=== PATIENT | male | born 1955 | race Caucasian/White ===

== ENCOUNTER 2016-08-28 07:30 | Inpatient (IN) | payer BC ==
--- NOTE | 2016-08-13 14:45 | NUR ---
PMH, allergies, meds reviewed and documented. Preop and DOS instructions reviewed and questions answered. Encouraged to call if he has any further questions.
--- NOTE | 2016-08-19 14:00 | NUR ---
JOINT REPLACEMENT PREOP CLASS PATIENT ATTENDED JOINT REPLACEMENT PREOP CLASS. CASE MANAGEMENT CONTACT INFORMATION PROVIDED. EDUCATION WAS PROVIDED REGARDING WHAT TO EXPECT BEFORE, DURING AND AFTER SURGERY. INCLUDING: OVERVIEW OF ANATOMY AND PHYSIOLOGY HOSPITAL TREATMENT SCHEDULE THERAPY DEMONSTRATION CASE MANAGEMENT RESPONSIBILITIES DISCHARGE PLANNING EQUIPMENT NEEDS JOINT REPLACEMENT WORKBOOK ANTI-COAGULATION SURGERY STRONG NUTRITIONAL PROTOCOL DIS[place]GE IN[place] [facility] [place], WITH INSTRUCTIONS [facility] AND PREOP SURVERY PREOP BATHING- CHG GIVEN ALL PATIENT'S QUESTIONS ANSWERED TO THEIR SATISFACTION. PATIENTS AND COACHES ENCOURAGED TO CALL WITH ANY ADDITIONAL QUESTIONS OR CONCERNS. CM FOLLOWING FOR TRANSITIONAL CARE PLANNING NEEDS DURING HOSPITALIZATION.
[~2016-08-28] VITALS: Ht 185.4 cm; Wt 93.5 kg
[~2016-08-28 07:30] MED LIST: AMLO2.5T PO; CHOL100092 PO; CLOP75TA33 PO; FLUT9.9S EA NOSTRIL; GABA-338 PO; GLUC-210 PO; LOSA50TA52 PO; MULT-1175 PO; NITR0.4T SL; PANT40TA27 PO; PITA4TAB PO; SAW450CA4 PO; UBID200C15 PO; VITA1CAP PO
[2016-09-23] VITALS (24 sets, daily range): BP systolic 101–154; BP diastolic 5–86; PULSE 55–74; RESP 14–18; TEMP 97.2–97.8; O2SAT 91–100; Ht 185.4 cm; Wt 93.5 kg
[2016-09-23] MEDS ORDERED: METOCLOPRAMIDE 10mg/2ml INJECTION IV ONE (06:00)
[2016-09-23] MEDS ORDERED: FAMOTIDINE 20mg IVPB 50 ML IV ONE (06:00)
[2016-09-23] MEDS ORDERED: LIDOCAINE 1% (10mg/ml) 2ml SDV SQ ONE (06:00)
[2016-09-23] MEDS ORDERED: MELOXICAM 15 MG TABLET PO ONE (06:00)
[2016-09-23] MEDS ORDERED: ACETAMINOPHEN 500 MG TABLET PO ONE (07:00)
[2016-09-23] MEDS ORDERED: ONDANSETRON 4mg/2ml INJECTION IV ONE (07:00)
[2016-09-23] MEDS ORDERED: DEXAMETHASONE 4mg/ml - 1ml INJECTION IV ONE (07:00)
[2016-09-23] MEDS ORDERED: LR 1,000 ML IV SCH (07:00)
--- OUTSIDE RECORDS SUMMARY | 2016-09-23 09:25 | XMS REPORT | Continuity of Care Document ---
Author Author [facility] Ambulatory Address Unknown Phone Unavailable Care Team Providers Care Bead Builder Name Role Phone Leobardo Gallegos PP Unavailable Payers Payer name Insurance type Covered green party ID Authorization(s) Unknown Problems Condition Effective Dates (start - stop) Clinical Status Chest pain, unspecified - Intermittent RUQ abdominal pain - Intermittent CAD (coronary artery disease) - *Chronic Hypertension - *Chronic GERD (gastroesophageal reflux disease) - *Chronic Hypercholesterolemia - *Chronic Coronary atherosclerosis of unspecified type of vessel, ho-chunk or graft - *Chronic Unspecified essential hypertension - *Chronic Unspecified gastritis and gastroduodenitis (without mention of hemorrhage) May - *Chronic Other psoriasis and similar disorders - *Chronic Unspecified arthropathy, site unspecified - *Chronic Allergic rhinitis, cause unspecified - *Chronic CAD (coronary artery disease) - *Chronic Low back pain - *Chronic Left lumbar radiculopathy - *Acute Hypertension - *Chronic GERD (gastroesophageal reflux disease) - *Chronic Depression - *Controlled Hypercholesteremia - *Controlled Hypertension - *Chronic Low back pain - *Chronic Pneumonia Vaccine - Need for prophylactic vaccination and inoculation against viralhepatitis - CAD (coronary artery disease) - *Controlled Hypercholesterolemia - *Chronic Psoriasis - *Chronic Depression - *Controlled GERD (gastroesophageal reflux disease) - *Chronic CAD (coronary artery disease) - *Controlled Tendinitis of left rotator cuff - *Chronic Hypertension - *Chronic Hypercholesterolemia - *Chronic Depression - *Controlled Back pain - *Chronic GERD (gastroesophageal reflux disease) - *Chronic Psoriasis - *Chronic Dizziness - *Chronic Chest pain at rest - Intermittent CAD (coronary artery disease) - *Chronic Hypertension - *Chronic Hypercholesterolemia - *Chronic Fatigue - *Chronic Coronary atherosclerosis of unspecified type of vessel, ho-chunk or graft - *Chronic Acute sinusitis, unspecified - *Acute Unspecified chest pain - *Acute CAD (coronary artery disease) - *Acute Hypertension - *Chronic Rotator cuff tendinitis - *Chronic Low back pain radiating to left leg - *Chronic Benign essential hypertension - *Poor control Influenza Vaccine - Chest pain at rest - Intermittent CAD (coronary artery disease) - *Stable Hypertension - *Chronic Hypercholesterolemia - *Chronic Dizziness - Improved Myalgia - *Chronic GERD - *Chronic BPH - Asymptomatic Hypertension, Unspecified - *Controlled VARICELLA UNCOMPLICATED - PURE HYPERCHOLESTEROLEM - TENSION HEADACHE - TEAR FILM INSUFFIC NOS - OTITIS MEDIA NOS - ANGINA PECTORIS NEC/NOS - COR ATH UNSP VSL NTV/GFT - CHRONIC SINUSITIS NOS - ALLERGIC RHINITIS NOS - 486 - PNEUMONIA, ORGANISM NOS - OTHER PSORIASIS - Acute gastritis - Improved Tennis elbow - *Acute CAD (coronary artery disease) - *Stable Hypertension - *Controlled Hypercholesterolemia - *Chronic Cyst of finger - *Symptomatic Dermatitis - *Acute Psoriasis - Persistent Family History Family Member Diagnosis Age At Onset Status Paternal grandmother (Unknown) CAD Yes Paternal grandfather (Unknown) Cancer - esophageal Yes Paternal grandmother (Unknown) Cancer -stomach Yes Mother (Unknown) Alive and well (Unknown) Father (Unknown) Cancer -esophageal Yes Mother (Unknown) Congestive heart failure Yes Mother (Unknown) Hypertension Yes Paternal grandfather (Unknown) Cancer - stomach Yes Maternal aunt (Unknown) Cancer -lymphoma Yes Father (Unknown) Hypertension Yes Mother (Unknown) CAD Yes Paternal grandmother (Unknown) Myocardial infarction Yes Social History Social History Element Description Quantity Unknown Allergies, Adverse Reactions, Alerts Substance Reaction Severity Status SIMVASTATIN myalgias Unknown LOVASTATIN hands puffy and very stiff Unknown LISINOPRIL cough Unknown Medications Medication Instructions Dosage Effective Dates (start - stop) Status citalopram 20 mg tablet Take 1/2 tablet by mouth every day. - Active clopidogrel 75 mg tablet take 1 tablet (75MG) by oral route every day 75 MG - Active Protonix 40 mg tablet,delayed release Take 1 tablet by mouth twice a day. - No Longer Active multivitamin tablet take 1 tablet by oral route every day with food 0 - Active saw palmetto fruit 450 mg capsule bid - Active TYLENOL (unknown strength) prn - Active Vitamin D3 1,000 unit capsule take 1 Tablet by Oral route every day 0 - Active amlodipine 2.5 mg tablet take 1 Tablet by Oral route every day 0 2012 - Active Glucosamine Chondroitin Maximum Strength 500 mg-400 mg capsule take 1500/1200 mg twice a day - Active Nitrostat 0.[address] 1 tablet (0.4MG) under tongue every 5 min. X 3 if needed for chest pain. - Active CoQ-10 100 mg capsule Take 200 mg daily - Active losartan 50 mg tablet take 1 tablet (50MG) by oral route every day 50 MG - Active Livalo 4 mg tablet take 1 tablet (4MG) by oral route every day 4 MG - Active Flonase 50 mcg/actuation nasal spray,suspension inhale 2 spray (100MCG) by intranasal route every day in each nostril 100 MCG - Active gabapentin 300 mg capsule Take 1 capsules by mouth at bedtime. 2013 - Active Protonix 40 mg tablet,delayed release Take 1 tablet by mouth daily, - Active Immunizations Vaccine Date Status Comments Twinrix completed Pneumo (2 yrs or older)(PPV) completed Twinrix completed Twinrix completed Flu (split) (3 yrs or older) completed Results Test Name Date and Time Measure Units Reference Range Abnormal Flag Comments Panel Description: CBC WBC 16:17:00 6.0 K/uL 4.8-10.8 RBC 16:17:00 4.51 M/uL 4.60-6.20 L HGB 16:17:00 14.0 g/dl 14.0-18.0 HCT 16:17:00 41.5 % 42.0-52.0 L MCV 16:17:00 92.0 fL 82.0-99.0 MCH 16:17:00 31.0 pg 27.0-32.0 MCHC 16:17:00 33.7 g/dL 32.0-36.0 RDW 16:17:00 12.4 % 11.5-14.5 MPV 16:17:00 10.2 fL 8.8-14.8 Platelet Count 16:17:00 272 K/uL 150-400 Immature Granulocytes 16:17:00 0.0 % 0.0-1.0 Absolute Neutrophils 16:17:00 3.48 THOUS 1.90-7.00 Absolute Lymphocytes 16:17:00 1.60 THOUS 0.80-3.30 Absolute Monocytes 16:17:00 0.55 THOUS 0.30-1.00 Absolute Eosinophils 16:17:00 0.29 THOUS 0.00-0.50 Absolute Basophils 16:17:00 0.09 THOUS 0.00-0.20 Neutrophils 16:17:00 58 % 51-75 Lymphocytes 16:17:00 27 % 20-46 Monocytes 16:17:00 9 % 4-11 Eosinophils 16:17:00 5 % 0-4 H Basophils 16:17:00 2 % 0-2 Testing performed at [facility] [address] [place] [id number] [employer] Away Torrey Mallory MD Panel Description: Chemistry Profile Glucose 16:17:00 91 mg/dL 70-99 BUN 16:17:00 15 mg/dL 8-26 Creatinine 16:17:00 0.84 mg/dL 0.72-1.25 Calcium 16:17:00 10.1 mg/dL 8.9-10.5 Sodium 16:17:00 143 mEq/L 135-144 Potassium 16:17:00 4.5 mEq/L 3.5-5.2 Chloride 16:17:00 104 mEq/L 99-111 CO2 16:17:00 29 mEq/L 23-31 Albumin 16:17:00 4.4 g/dL 3.4-4.8 Bilirubin Total 16:17:00 0.8 mg/dL 0.2-1.2 Alkaline Phosphatase 16:17:00 74 U/L 40-150 Protein 16:17:00 7.6 g/dL 6.2-8.1 ALT (SGPT) 16:17:00 15 U/L 0-55 AST (SGOT) 16:17:00 18 U/L 5-34 Anion Gap 16:17:00 10 3-20 Globulin 16:17:00 3.2 g/dL 1.8-4.0 Testing performed at [facility] [address] [address] [employer] Away Torrey Mallory MD Panel Description: EGFR-[facility] eGFR 16:17:00 >60 mL/min >60 Multiply eGFR results by 1.21 for race.Testing performed at [facility] [address] [address] [employer] Away Torrey Mallory MD Panel Description: Amylase Amylase 16:17:00 40 U/L 25-125 Testing performed at [facility] [address] [address] [employer] Away Torrey Mallory MD Panel Description: Lipase-[facility] Lipase 16:17:00 21 U/L 8-78 Testing performed at [facility] [address] [address] [employer] Away Torrey Mallory MD Panel Description: Troponin-I Troponin 16:17:00 0.00 ng/mL 0.00-0.03 Testing performed at [facility] [address] [address] [employer]ter Away Torrey Mallory MD Vital Signs Date / Time: Height Weight Pulse Rate Blood Pressure Temperature /15:01:00 73.00 in 198.00 lbs 82 /min 130/70 mm[Hg] 96.9 F Procedures Procedure Date Unknown Encounters Encounter Location Date Patient Visit [facility] Patient Visit [facility] Patient Visit [facility] Patient Visit [facility] Patient Visit [facility] Patient Visit [facility] Patient Visit [facility] Patient Visit [facility] Patient Visit [facility] Patient Visit [facility] Patient Visit [facility] Patient Visit [facility] Patient Visit [facility] Patient Visit [facility] Patient Visit [facility] Patient Visit [facility] Patient Visit [facility] Patient Visit [facility] Patient Visit [facility] Advance Directives Directive Effective Date Unknown
--- OUTSIDE RECORDS SUMMARY | 2016-09-23 09:25 | XMS REPORT | Referral Summary ---
Author Author [facility] Organization [facility] Address Unknown Phone Unavailable Care Team Providers Care Bow Repairer Custom Name Role Phone Maliha Gallegos Primary Care Physician [phone] Encounter VC Date(s): 10/20/14 - 10/20/14 [facility] [address] [place] [address] BISHNU Llamas [id number] Discharge Diagnosis: Dysphagia Discharge Diagnosis: Family history of esophageal cancer Discharge Diagnosis: Colon cancer screening Discharge Disposition: 01-Home or Self Care Attending Physician: Ismael Shine MD Admitting Physician: Ismael Shine MD Referring Physician: Leobardo Gallegos MD Vital Signs Most recent to 1 oldest [Reference Range]: Temperature Tympanic 36.3 degC [36.6-38.1 degC] *LOW* (10/20/14 9:33 AM) Peripheral Pulse 64 bpm Rate [60-100 bpm] (10/20/14 9:33 AM) Respiratory Rate 16 br/min [14-20 br/min] (10/20/14 9:33 AM) Blood Pressure 130/68 mmHg [90-140/60-90 mmHg] (10/20/14 9:33 AM) Problem List Condition Effective Dates Status Health Status Informant Labral tear of hip, Active degenerative(Confirm ed) Allergic rhinitis Active (disorder)(Confirmed ) Arthropathy Active (disorder)(Confirmed ) Cholelithiasis(Confi 2012 Active rmed)1 Phantom Heart Active pain(Confirmed) Chronic Active depression(Confirmed ) Chronic low back Active pain(Confirmed) Coronary Active arteriosclerosis (disorder)(Confirmed ) Coronary Active atherosclerosis(Conf irmed) DDD (degenerative Active disc disease), lumbosacral(Confirme d) Dry eyes(Confirmed) Active Dysphagia(Confirmed) Active Essential Active hypertension (disorder)(Confirmed ) Gastroduodenitis Active (disorder)(Confirmed ) GERD Active (gastroesophageal reflux disease)(Confirmed) Hip pain(Confirmed) Active Hypercholesterolemia Active (Confirmed) Hyperlipidemia(Confi Active rmed) Ear Active infection(Confirmed) Epicondylitis, Active lateral (tennis elbow)(Confirmed) Primary Active osteoarthritis of right hip(Confirmed) Lumbar Active radiculopathy(Confir med) Lumbar Active spondylosis(Confirme d) Well adult Active exam(Confirmed) OA Active (osteoarthritis)(Con firmed) Pneumonia(Confirmed) Active Lumbar disc Active herniation(Confirmed ) Psoriasis(Confirmed) Active Sinus Active infection(Confirmed) Spinal stenosis, Active lumbar region, without neurogenic claudication(Confirm ed) Tension Active headache(Confirmed) Mid back Active pain(Confirmed) Spondylosis, Active thoracic(Confirmed) Need for Zostavax Active administration(Confi rmed) Chicken Active pox(Confirmed) 1Hospitalized. Allergies, Adverse Reactions, Alerts Substance Reaction Severity Status lisinopril cough Active lovastatin hands puffy and very stiff Active simvastatin myalgias Active Medications amLODIPine 2.5 mg oral tablet 1 tabs, Oral, Daily, # 90 tabs, 3 Refill(s), Pharmacy: [facility], 1 tabs Oral Daily,x90 days Start Date: 07/11/14 Stop Date: 07/06/15 Status: Ordered cholestyramine 4 g/5 g oral powder for reconstitution 1 packets, Oral, Daily, dissolve in 6 to 8 ounces of water; may increase to 2-3 packets in water daily;, # 60 Each, 11 Refill(s), Pharmacy: [facility], 1 packets Oral Daily,Instr:dissolve in 6 to 8 ounces of water; may increase to 2 -3 packets i... Start Date: 11/18/13 Status: Ordered citalopram 20 mg oral tablet 0.5 tabs, Oral, Daily, X 90 days, # 45 tabs, 3 Refill(s), Pharmacy: [facility], Instruct patient to schedule a complete physical with Dr. Gallegos, 0.5 tabs Oral Daily,x90 days Start Date: 07/11/14 Stop Date: 07/06/15 Status: Ordered clopidogrel 75 mg oral tablet 1 tabs, Oral, Daily, # 90 tabs, 3 Refill(s), Pharmacy: [facility], 1 tabs Oral Daily,x90 days Start Date: 07/11/14 Stop Date: 07/06/15 Status: Ordered Co-Q10 200 mg oral capsule 1 caps, Oral, Daily, # 30 caps, 0 Refill(s) Start Date: 11/18/13 Status: Ordered Fish Oil 1200 mg oral capsule 2 caps, Oral, BID, 0 Refill(s) Start Date: 07/11/14 Status: Ordered Flonase 50 mcg/inh nasal spray 2 sprays, Nasal, Daily, as needed for allergies, # 3 Each, 3 Refill(s), Pharmacy : [facility] Start Date: 07/11/14 Status: Ordered gabapentin 300 mg oral capsule 1 caps, Oral, Bedtime (once a day), # 90 caps, 3 Refill(s), Pharmacy: [facility], instruct patient to schedule a complete physical with Dr. Gallegos., 1 caps Oral Bedtime (once a day),x90 days Start Date: 07/11/14 Stop Date: 07/06/15 Status: Ordered Glucosamine & Chondroitin with MSM tabs, Oral, BID, 0 Refill(s) Start Date: 11/18/13 Status: Ordered Livalo 4 mg oral tablet 1 tabs, Oral, Daily, # 90 tabs, 3 Refill(s), Pharmacy: [facility], Instruct patient to schedule a complete physical with Dr. Gallegos, 1 tabs Oral Daily,x90 days Start Date: 07/11/14 Stop Date: 07/06/15 Status: Ordered losartan 50 mg oral tablet 1 tabs, Oral, Daily, # 90 tabs, 3 Refill(s), Pharmacy: [facility], instruct patient to schedule a complete physical with Dr. Gallegos, 1 tabs Oral Daily,x90 days Start Date: 07/11/14 Stop Date: 07/06/15 Status: Ordered multivitamin 1 tabs, Oral, Daily, 0 Refill(s) Start Date: 11/13/13 Status: Ordered Nitrostat 0.4 mg sublingual tablet 1 tabs, SubLingual, q5min, as needed for chest pain, not to exceed 3 doses/15 min--if pain persists, seek medical attention, # 30 tabs, 11 Refill(s), Pharmacy : [facility], 1 tabs SubLingual q5min,PRN:as needed for chest pain,Instr: not to exceed... Start Date: 07/11/14 Status: Ordered Saw Copen oral capsule 450 mg, Oral, BID, 0 Refill(s) Start Date: 11/13/13 Status: Ordered Vitamin B Complex oral capsule 1 caps, Oral, Daily, 0 Refill(s) Start Date: 07/11/14 Status: Ordered Vitamin D3 1000 intl units oral capsule 1 caps, Oral, Daily, 0 Refill(s) Start Date: 11/13/13 Status: Ordered Voltaren 1% topical gel 2 g, Topical, QID, as needed for pain, # 100 g, 0 Refill(s), Pharmacy: [facility] Start Date: 04/04/15 Status: Ordered Results No data available for this section Immunizations Vaccine Date Refusal Reason hepatitis A-hepatitis B vaccine 03/30/13 hepatitis A-hepatitis B vaccine 09/28/12 hepatitis A-hepatitis B vaccine 07/30/12 influenza virus vaccine, live 06/30/13 pneumococcal 23-polyvalent vaccine 07/30/12 tetanus/diphtheria/pertussis, acel(Tdap) 06/25/11 zoster vaccine live 09/08/14 Procedures Procedure Date Related Diagnosis Body Site Right T10-11/T11-12 Facet 03/26/15 Colonoscopy normal1 11/20/14 Esophagogastroduodenoscopy and biopsy2 11/20/14 L5-S1 Translaminar 09/19/14 Rigth Thoracic Mid-Level Facet 09/05/14 Excision of mucous cyst with local rotation 10/27/13 flat, LT MF Cardiac catheterization 08/01/11 Stent placement, cardiac 08/01/11 Angioplasty 2011 Cholecystectomy 2011 Percutaneous coronary intervention 2011 Angioplasty 01/2010 Percutaneous coronary intervention 2009 Stent placement 2009 CABG 03/2009 Colonoscopy3 06/22/07 Esophagogastroduodenoscopy4 06/22/07 Colonoscopy 2005 Colonoscopy normal5 1998 Esophagogastroduodenoscopy6 1998 Vasectomy 1990 Tonsillectomy and adenoidectomy 1956 Circumcision 1952 Laparoscopic cholecystectomy 1Normal colonoscopy, repeat in 10 years 2Mild esophagitis, no Sinha's 3normal 42small polyps removed unremarkable 5normal 6normal Social History Social History Type Response Smoking Status Never smoker Assessment and Plan Extracted from: Title: Ambulatory Patient Education Author: Ismael Shine MD Date: 5/8 /15 Allergy Dysphagia Swallowing problems (dysphagia ) occur when solids and liquids seem to stick in your throat on the way down to your stomach, or the food takes longer to get to the stomach. Other symptoms include regurgitating food, noises coming from the throat, chest discomfort with swallowing, and a feeling of fullness or the feeling of something being stuck in your throat when swallowing. When blockage in your throat is complete it may be associated with drooling. CAUSES Problems with swallowing may occur because of problems with the muscles. The food cannot be propelled in the usual manner into your stomach. You may have ulcers, scar tissue, or inflammation in the tube down which food travels from your mouth to your stomach (esophagus ), which blocks food from passing normally into the stomach. Causes of inflammation include: Acid reflux from your stomach into your esophagus. Infection. Radiation treatment for cancer. Medicines taken without enough fluids to wash them down into your stomach. You may have nerve problems that prevent signals from being sent to the muscles of your esophagus to contract and move your food down to your stomach. Globus pharyngeus is a relatively common problem in which there is a sense of an obstruction or difficulty in swallowing, without any physical abnormalities of the swallowing passages being found. This problem usually improves over time with reassurance and testing to rule out other causes. DIAGNOSIS Dysphagia can be diagnosed and its cause can be determined by tests in which you swallow a white substance that helps illuminate the inside of your throat ( contrast medium) while X-rays are taken. Sometimes a flexible telescope that is inserted down your throat (endoscopy ) to look at your esophagus and stomach is used. TREATMENT If the dysphagia is caused by acid reflux or infection, medicines may be used. If the dysphagia is caused by problems with your swallowing muscles, swallowing therapy may be used to help you strengthen your swallowing muscles. If the dysphagia is caused by a blockage or mass, procedures to remove the blockage may be done. HOME CARE INSTRUCTIONS Try to eat soft food that is easier to swallow and check your weight on a daily basis to be sure that it is not decreasing. Be sure to drink liquids when sitting upright (not lying down). SEEK MEDICAL CARE IF: You are losing weight because you are unable to swallow. You are coughing when you drink liquids (aspiration ). You are coughing up partially digested food. SEEK IMMEDIATE MEDICAL CARE IF: You are unable to swallow your own saliva(. You are having shortness of breath or a fever, or both.( You have a hoarse voice along with difficulty swallowing. MAKE SURE YOU: Understand these instructions. Will watch your condition. Will get help right away if you are not doing well or get worse. Document Released: 05/29/2001 Document Revised: 02/01/2014 Document Reviewed: [facility] Patient Information 2014 [employer]. No follow up information was provided. Extracted from: Title: Office Visit Note Author: Ismael Shine MD Date: 10/20/14 Assessment/Plan Dysphagia Ordered: Office Visit Level 4 New [id number] Family history of esophageal cancer Ordered: Office Visit Level 4 New [id number] Plan: EGD possible dilatation. Hemoccult cards. If cards are positive, will then add colonoscopy. Did review the patient's chart including a recent office note performed by his primary care physician from September 08, 2014. There were also able to identify a prior colonoscopy and EGD report from June 22, 2007. Colonoscopy was normal. He was found to have a small polyp within the stomach. I informed the patient secondary to the fact that it has only been about 7-1/2 years from his last colonoscopy which was normal I did not feel that we needed to repeat a colonoscopy at this time. I would however recommend that we go ahead and performHemoccult card testing. If he is Hemoccult positive will likely than proceed with colonoscopy. I did recommend to the patient however that we should proceed with esophagogastroduodenoscopy given his history for dysphagia and his strong family history for esophageal cancer. I did discuss in detail with the patient what an EGD entailed and its associated risk which included but was not inclusive of bleeding and/or perforation. Patient understood and was scheduled. He was informed to be off his Plavix 5 days prior to his procedure.
--- OUTSIDE RECORDS SUMMARY | 2016-09-23 09:25 | XMS REPORT | Referral Summary ---
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 Role Phone Maliha Gallegos Primary Care Physician [phone] Encounter [facility] [id number] Date(s): 03/20/15 - 03/20/15 [facility] [address] [place], [place] [address] Discharge Diagnosis: Spondylosis, thoracic Discharge Diagnosis: Pain in right hip Discharge Diagnosis: Labral tear of right hip, degenerative Discharge Diagnosis: Back pain, thoracic Discharge Disposition: 01-Home or Self Care Attending Physician: Ladi Page PA-C Admitting Physician: Ladi Page PA-C Vital Signs Most recent to 1 oldest [Reference Range]: Blood Pressure 128/82 mmHg [90-140/60-90 mmHg] (03/20/15 9:01 AM) Problem List Condition Effective Dates Status [...] Daily, # 90 tabs, 3 Refill(s), Pharmacy: [facility], 1 tabs Oral Daily,x90 days Start Date: 07/11/14 Stop Date: 07/06/15 Status: Ordered cholestyramine 4 g/5 g oral powder for reconstitution 1 packets, Oral, Daily, dissolve in 6 to 8 ounces of water; may increase to 2-3 packets in water daily;, # 60 Each, 11 Refill(s), Pharmacy: [facility], 1 packets Oral Daily,Instr:dissolve in 6 to 8 ounces of water; may increase to 2 -3 packets i... Start Date: 11/18/13 Status: Ordered citalopram 20 mg oral tablet 10 mg 0.5 tabs, Oral, Daily, # 45 tabs, 0 Refill(s), Pharmacy: [facility] , 0.5 tabs Oral Daily Start Date: 06/01/15 Status: Ordered clopidogrel 75 mg oral tablet See Instructions, 1 tabs Oral Daily, # 90 tabs, eRx: [facility], 1 tabs Oral Daily Start Date: 09/17/15 Status: Ordered Co-Q10 200 mg oral capsule 1 caps, Oral, Daily, # 30 caps, 0 Refill(s) Start Date: 11/18/13 Status: Ordered famotidine 40 mg oral tablet 40 mg 1 tabs, Oral, Bedtime (once a day), # 30 tabs, 5 Refill(s), Pharmacy: [facility], 1 tabs Oral Bedtime (once a day) Start Date: 07/12/15 Status: Ordered Fish Oil 1200 mg oral capsule 2 caps, Oral, BID, 0 Refill(s) Start Date: 07/11/14 Status: Ordered Flonase 50 mcg/inh nasal spray 2 sprays, Nasal, Daily, as needed for allergies, # 3 Each, 3 Refill(s), Pharmacy : [facility] Start Date: 07/11/14 Status: Ordered gabapentin 300 mg oral capsule 300 mg 1 caps, Oral, Bedtime (once a day), # 90 caps, 0 Refill(s), Pharmacy: [facility], 1 caps Oral Bedtime (once a day) Start Date: 09/10/15 Status: Ordered Glucosamine & Chondroitin with MSM tabs, Oral, BID, 0 Refill(s) Start Date: 11/18/13 Status: Ordered Livalo 4 mg oral tablet 4 mg 1 tabs, Oral, Daily, PT. IS DUE FOR LABS., # 90 tabs, 0 Refill(s), Pharmacy : [facility], 1 tabs Oral Daily,Instr:PT. IS DUE FOR LABS. Start Date: 09/10/15 Status: Ordered losartan 50 mg oral tablet 50 mg 1 tabs, Oral, Daily, PT. IS DUE FOR LABS., # 90 tabs, 0 Refill(s), Pharmacy: [facility], 1 tabs Oral Daily,Instr:PT. IS DUE FOR LABS. Start Date: 09/10/15 Status: Ordered multivitamin 1 tabs, Oral, Daily, 0 Refill(s) Start Date: 11/13/13 Status: Ordered Nitrostat 0.4 mg sublingual tablet 1 tabs, SubLingual, q5min, as needed for chest pain, not to exceed 3 doses/15 min--if pain persists, seek medical attention, # 30 tabs, 11 Refill(s), Pharmacy : [facility], 1 tabs SubLingual q5min,PRN:as needed for chest pain,Instr: not to exceed... Start Date: 07/11/14 Status: Ordered Saw [employer]on oral capsule 450 mg, Oral, BID, 0 [...] pain, # 100 g, 0 Refill(s), Pharmacy: [facility] Start Date: 04/04/15 Status: Ordered [...] smoker Assessment and Plan Extracted from: Title: Office Visit Note Author: Ladi Page PA-C Date: 03/20/15 Assessment/Plan Back pain, thoracic Labral tear of right hip, degenerative Pain in right hip Spondylosis, thoracic I discussed the patient's plan of care with Dr. Siu. I also reviewed the patient's most recent thoracic MRI. According to this MRI the patient has facet joint hypertrophic changes at the T10-11 level, more prominent on the right. There is mild deformity of the thecal sac due to the facet joint hypertrophic change. This coincides withthe patient's mid back pain. He continues to complain of right hip pain. According to his recent right hip MRI, there is somesubchondral cystic changesin the right acetabulum with small bilateral joint effusions, greater on the right. There was note of a linear signal extending into the superior anterior labrum, concerning for labral tear. He has previously had a right intra-articular hip joint injection , only providing him relief for one to [address] Siu recommends a referral to Dr. Staples for evaluation. Dr. Siu recommends proceeding with repeating his right T10 11 and T11 12 facet jointinjection. The patient does understand the rationale for the procedure as well as possible complications including bleeding, infection, allergic reaction, nerve irritation or damage. The patient also understands other remote possible complications including paraplegia, quadriplegia, , stroke, and seizure. The patient voiced understanding and wishes to proceed. The patient requests a local anesthetic. He is on Plavix, but it is okay to stay on his Plavix for the facet joint injections. The patient will follow-up in 2-3 months following the injection. If the patient fails to improve or worsening symptoms, they will follow-up sooner. The patient voiced understanding and agrees to the above plan. The above was in discussionwith Dr. Siu.
--- OUTSIDE RECORDS SUMMARY | 2016-09-23 09:26 | XMS REPORT | Referral Summary ---
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 Role Phone Maliha Gallegos Primary Care Physician [phone] Encounter [facility] [id number] Date(s): 11/28/14 - 11/28/14 [facility] [address] [place], [place] [address] Discharge Diagnosis: Hip pain Discharge Diagnosis: Spondylosis, thoracic Discharge Diagnosis: Mid back pain Discharge Diagnosis: Lumbar disc herniation Discharge Diagnosis: Spinal stenosis, lumbar region, without neurogenic claudication Discharge Disposition: 01-Home or Self Care Attending Physician: Rhonda Blandon APRN Admitting Physician: Rhonda Blandon APRN Vital Signs Most recent to 1 oldest [Reference Range]: Blood Pressure 116/58 mmHg [90-140/60-90 mmHg] (11/28/14 8:32 AM) Problem List Condition Effective Dates Status [...] Daily, # 90 tabs, 3 Refill(s), Pharmacy: [facility], 1 tabs Oral Daily,x90 days Start Date: 07/11/14 Stop Date: 07/06/15 Status: Ordered cholestyramine 4 g/5 g oral powder for reconstitution 1 packets, Oral, Daily, dissolve in 6 to 8 ounces of water; may increase to 2-3 packets in water daily;, # 60 Each, 11 Refill(s), Pharmacy: [facility], 1 packets Oral Daily,Instr:dissolve in 6 to 8 ounces of water; may increase to 2 -3 packets i... Start Date: 11/18/13 Status: Ordered citalopram 20 mg oral tablet 0.5 tabs, Oral, Daily, X 90 days, # 45 tabs, 3 Refill(s), Pharmacy: [facility], Instruct patient to schedule a complete physical with Dr. Gallegos, 0.5 tabs Oral Daily,x90 days Start Date: 07/11/14 Stop Date: 07/06/15 Status: Ordered clopidogrel 75 mg oral tablet 1 tabs, Oral, Daily, # 90 tabs, 3 Refill(s), Pharmacy: [facility], 1 tabs Oral Daily,x90 days [...] # 3 Each, 3 Refill(s), Pharmacy : [facility] Start Date: 07/11/14 Status: Ordered gabapentin 300 mg oral capsule 1 caps, Oral, Bedtime (once a day), # 90 caps, 3 Refill(s), Pharmacy: [facility], instruct patient to schedule a complete physical with Dr. Gallegos., 1 caps Oral Bedtime (once a day),x90 days Start Date: 07/11/14 Stop Date: 07/06/15 Status: Ordered Glucosamine & Chondroitin with MSM tabs, Oral, BID, 0 Refill(s) Start Date: 11/18/13 Status: Ordered Livalo 4 mg oral tablet 1 tabs, Oral, Daily, # 90 tabs, 3 Refill(s), Pharmacy: [facility], Instruct patient to schedule a complete physical with Dr. Gallegos, 1 tabs Oral Daily,x90 days Start Date: 07/11/14 Stop Date: 07/06/15 Status: Ordered losartan 50 mg oral tablet 1 tabs, Oral, Daily, # 90 tabs, 3 Refill(s), Pharmacy: [facility], instruct patient to schedule a [...] # 30 tabs, 11 Refill(s), Pharmacy : [facility], 1 tabs SubLingual q5min,PRN:as needed for chest pain,Instr: not to exceed... Start Date: 07/11/14 Status: Ordered Saw Mcewen oral capsule 450 mg, Oral, BID, 0 [...] pain, # 100 g, 0 Refill(s), Pharmacy: [facility] Start Date: 04/04/15 Status: Ordered [...] Extracted from: Title: Office Visit Note Author: Rhonda Blandon APRN Date: 11/28/14 Assessment/Plan Hip pain Lumbar disc herniation Mid back pain Spinal stenosis, lumbar region, without neurogenic claudication Spondylosis, thoracic I discussed the patient's plan of care with Dr. Siu, he also reviewed the patient's most recent thoracic andlumbar MRIs. According to this MRIs the patient has an L5-S1 mild to moderate disc herniation with mild foraminal narrowing, mild central stenosis at L4 5, facet joint hypertrophic changes at T10 11. Thispatient's primary complaint today is right hip pain radiating to his right groin. Dr. Siu recommends obtaining a right hip x-ray and pelvis x-ray and proceeding with a right intra-articular hip injection under ultrasound. The patient does understand the rationale for the procedure as well as possible complications including bleeding, infection, allergic reaction, nerve irritation or damage. The patient voiced understanding and wishes to proceed.The patient requests a local anesthetic.The patient will follow-up in 4 weeksfollowing the injection. If the patient fails to improve or worsening symptoms, they will follow-up sooner. If his sciatica persists discussed with him that he may consider a transforaminal injection in the future. He will treat his right hip pain first as it is currently most bothersome. The patient voiced understanding and agrees to the above plan. Physical exam findings, history present illness, and recommendations are performed with and in agreement with Dr. Siu's findings.
--- OUTSIDE RECORDS SUMMARY | 2016-09-23 09:26 | XMS REPORT | Continuity of Care Document ---
Author Author [facility] Organization [facility] Address Unknown Phone Unavailable Allergies Active Description Code Type Severity Reaction Onset Reported/Identified Relationship to Patient Clinical Status Yes Pgajkjo-Bzg-Wrz Reductase Inhibitors 176052 3 N/A N/A Yes No Known Allergies Drug Allergy 01/29/2012 Yes No Known Drug Allergies Drug Allergy 01/29/2012 Yes No Known Food Allergies Food Allergy 01/29/2012 Yes lisinopril NKMA N/A cough 10/12/2013 Yes lovastatin NKMA N/A hands puffy and very stiff 10/12/2013 Yes simvastatin NKMA N/A myalgias 10/12/2013 Yes SIMVASTATIN 64245 2 WEAKNESS 07/18/2015 Medications Medication Packaging Start Date Stop Date Route Dosage Sig MIDAZOLAM 2MG/2ML INJ VL 10/30/2015 10/29/2016 IV ASDIR methylPREDNISolone ACETATE 80MG/1ML INJ VL 10/30/20152016 IT ASDIR fentaNYL 100 MCG/2ML INJ AMP 10/30/2015 10/29/2016 IV ASDIR LIDOCAINE 1% MPF INJ (5ML) VL 10/31/2015 10/31/2015 ID ONCE LIDOCAINE 1% MPF INJ (5ML) VL 10/31/2015 10/30/2016 IT ASDIR * DONT RECONCILE--CHANGE PENDING EA 01/07/2016 01/10/2016 PO PRN ceFAZolin 1GM VIAL VL 01/10/2016 01/10/2016 IVP ONCE LACTATED RINGERS 1000 ML IV SOLN BAG 01/10/2016 01/10/2016 IV PRE-OP MIDAZOLAM 2MG/2ML INJ VL 01/10/2016 01/10/2016 IV PRE-OP ceFAZolin 1GM VIAL VL 01/10/2016 01/10/2016 IV PRE-OP fentaNYL 100 MCG/2ML INJ AMP 01/10/2016 01/10/2016 IV PRE-OP METHOCARBAMOL 750MG TABLET TAB 01/10/2016 01/09/2017 PO TID& 0900,1500,2200 DOCUSATE SODIUM 100MG CAPSULE CAP 01/10/2016 01/09/2017 PO BID& 0900,2100 THROMBIN 5000 UNIT VIAL VL 01/10/2016 01/10/2016 TOP ONCE BACITRACIN 50,000 UNITS VIAL VL 01/10/2016 01/10/2016 IM ONCE SODIUM CHLORIDE PF 0.9% 10ML INJ VL 01/10/2016 01/10/2016 IVP ONCE LACTATED RINGERS 1000 ML IV SOLN BAG 01/10/2016 01/10/2016 IV ONCE SODIUM CHLORIDE 0.9% 1000ML IRRIG SOLN EA 01/10/20162015 IRR ONCE BUPIVACAINE W/ EPI 0.25% INJ [10 ML] VL 01/10/2016 01/10/2016 ID ONCE * Ready to Reconcile EA 01/10/2016 01/10/2016 PO ASDIR fentaNYL 250 MCG/5ML INJ AMP 01/10/2016 01/10/2016 IV ONCE fentaNYL 100 MCG/2ML INJ AMP 01/10/2016 01/10/2016 IV PRE-OP fentaNYL 100 MCG/2ML INJ AMP 01/10/2016 01/10/2016 IV PRE-OP MAGNESIUM HYDROXIDE 2400MG/30ML SUSP EA 01/10/2016 01/09/2017 PO PRN MORPHINE 4MG/1ML SYRINGE ML 01/10/2016 01/09/2017 IVP [id number] BISACODYL 10MG SUPPOS. SUP 01/10/2016 01/09/2017 SD* PRN PROMETHAZINE 25MG TABLET TAB 01/10/2016 01/09/2017 PO [id number] ONDANSETRON 4MG TABLET TAB 01/10/2016 01/09/2017 PO [id number] METOCLOPRAMIDE 10MG TABLET TAB 01/10/2016 01/09/2017 PO Q2SNMBAX LORazepam 0.5MG TABLET TAB 01/10/2016 01/09/2017 PO Q4HPRN HYDROcodone/ACETAMINOPHEN 7.5-325 MG TABLET TAB 01/10/2016 PO C1OCBFB BISACODYL 5MG TABLET TAB 01/10/2016 01/09/2017 PO PRN ACETAMINOPHEN 325MG TABLET TAB 01/10/2016 01/09/2017 PO Q4HPRN SODIUM CHLORIDE 0.9% 1000ML IV SOLN BAG 01/10/2016 01/11/2016 LVP 100ML/HR ONDANSETRON 4MG/2ML INJ VL 01/10/2016 01/09/2017 IVP [id number] PROMETHAZINE 25 MG/1ML INJ VL 01/10/2016 01/09/2017 IVP [id number] METOCLOPRAMIDE 10MG/2ML INJ VL 01/10/2016 01/09/2017 IVP Q6VGNHLP ZOLPIDEM 5MG TABLET TAB 01/10/2016 01/09/2017 PO HSPRNI&2200 diphenhydrAMINE 25MG CAPSULE CAP 01/10/2016 01/09/2017 PO Q6HPRN diphenhydrAMINE 50MG/1ML INJ VL 01/10/2016 01/09/2017 IVP Q6HPRN diazePAM 5MG TABLET TAB 01/10/2016 01/09/2017 PO [id number] LIDOCAINE 2% SYRINGE [100MG/5ML] SYR 01/10/2016 01/10/2016 IVP ONCE VECURONIUM 10MG INJ VL 01/10/2016 01/10/2016 IVP ONCE PROPOFOL 200MG/20ML INJ VL 01/10/2016 01/10/2016 IVP ONCE SUCCINYLCHOLINE 100MG/5ML SYRINGE [COMPOUND] DOS 01/10/2016 IVP ONCE DEXAMETHASONE 10MG/1ML VIAL VL 01/10/2016 01/10/2016 IVP ONCE ONDANSETRON 4MG/2ML INJ VL 01/10/2016 01/10/2016 IVP ONCE ePHEDrine 20MG/2ML SYRINGE (COMPOUNDED) DOS 01/10/20162015 IVP ONCE GLYCOPYRROLATE 0.2 MG/1ML INJ VL 01/10/2016 01/10/2016 IVP ONCE NEOSTIGMINE 3MG/3ML SYRINGE [COMPOUND] DOS 01/10/20162015 IVP ONCE hydroMORPHONE 2MG/1ML INJ ML 01/10/2016 01/10/2016 IV POST-OP *PITAVASTATIN 4MG TABLET 01/10/2016 01/09/2017 PO QD&0900 *amLODIPine 2.5MG TABLET TAB 01/10/2016 01/09/2017 PO HS&2200 *CHOLESTYRAMINE LIGHT 4GM PWD PKT PKT 01/10/2016 01/09/2017 PO QD&0900 *LOSARTAN 50MG TABLET TAB 01/10/2016 01/09/2017 PO QD&0900 *NITROGLYCERIN SL 0.4MG TABLET TAB 01/10/2016 01/09/2017 SL PRN *GABAPENTIN 300MG CAPSULE CAP 01/10/2016 01/09/2017 PO HS&2200 *CITALOPRAM 20MG TABLET TAB 01/10/2016 01/09/2017 PO QD&0900 *FLUTICASONE NASAL INHALER [16GM] MDI 01/10/2016 01/09/2017 MAREK QD&0900 ceFAZolin 1GM VIAL VL 01/10/2016 01/11/2016 IVP Q8H&0000,0800, 1600 *PITAVASTATIN 4MG TABLET 02/07/2016 01/10/2016 PO QD&0900 *amLODIPine 2.5MG TABLET TAB 02/07/2016 01/10/2016 PO QD&0900 *CHOLESTYRAMINE LIGHT 4GM PWD PKT PKT 02/07/2016 01/10/2016 PO QD&0900 *LOSARTAN 50MG TABLET TAB 02/07/2016 01/10/2016 PO QD&0900 *CLOPIDOGREL 75MG TABLET TAB 02/07/2016 02/06/2017 PO QD&0900 *CITALOPRAM 20MG TABLET TAB 02/07/2016 01/10/2016 PO QD&0900 *FLUTICASONE NASAL INHALER [16GM] MDI 02/07/2016 01/10/2016 MAREK QD&0900 *GABAPENTIN 300MG CAPSULE CAP 02/07/2016 01/10/2016 PO HS&2200 *OTC/HERBAL SUPPLEMENTS EA 02/07/2016 02/06/2017 PO ASDIR *NITROGLYCERIN SL 0.4MG TABLET TAB 02/07/2016 01/10/2016 SL PRN *amLODIPine 2.5MG TABLET TAB 02/10/2016 01/10/2016 PO HS&2200 *HYDROcodone/ACETAMINOPHEN 5-325 MG TABLET TAB 02/10/201602/09 PO TIDPRN Problems Date Dx Coded Attending Type Code Diagnosis Diagnosed By 02/02/2012 Charlie Monroe MD A Final 311 DEPRESSIVE DISORDER NEC 02/02/2012 Charlie Monroe MD A Final 401.9 HYPERTENSION NOS 02/02/2012 Charlie Monroe MD Final 414.00 COR -GRAFT TYPE NOS 02/02/2012 Charlie Monroe MD Admitting 574.20 GB CALCULUS W/O CHOL 02/02/2012 Charlie Monroe MD Final 575.9 GB DISORDER NOS 07/18/2015 DF M50.12 Cervical disc disorder w 07/18/2015 DF M5012 Cervical disc disorder w 07/30/2015 W S49.92XA Injury of left shoulder, initial encounter 10/28/2015 ANDREW HOLLOWAY M50.12 Cervical disc disorder with radiculopath 10/30/2015 ANDREW HOLLOWAY M50.12 Cervical disc disorder with radiculopath 10/31/2015 ANDREW HOLLOWAY M50.12 Cervical disc disorder with radiculopath 10/31/2015 ANDREW HOLLOWAY M50.12 Cervical disc disorder with radiculopath 10/31/2015 ANDREW HOLLOWAY DF M50.12 Cervical disc disorder with radiculopath 01/07/2016 BULMARO TEJADA M50.12 Cervical disc disorder with radiculopath 01/10/2016 BULMARO TEJADA M50.12 Cervical disc disorder with radiculopath 01/10/2016 BULMARO TEJADA M50.12 Cervical disc disorder with radiculopath 01/10/2016 BULMARO TEJADA M50.12 Cervical disc disorder with radiculopath 01/10/2016 BULMARO TEJADA M50.12 Cervical disc disorder with radiculopath 01/10/2016 BULMARO TEJADA M50.12 Cervical disc disorder with radiculopath 01/10/2016 BULMARO TEJADA M50.12 Cervical disc disorder with radiculopath 01/10/2016 BULMARO TEJADA M50.12 Cervical disc disorder with radiculopath 01/10/2016 BULMARO TEJADA M50.12 Cervical disc disorder with radiculopath 01/11/2016 BULMARO TEJADA DF E78.5 Hyperlipidemia, unspecified 01/11/2016 BULMARO TEJADA DF F41.8 Other specified anxiety disorders 01/11/2016 BULMARO TEJADA DF G95.20 Unspecified cord compression 01/11/2016 BULMARO TEJADA DF I10 Essential (primary) hypertension 01/11/2016 BULMARO TEJADA DF I25.10 Atherosclerotic heart disease of [place] 01/11/2016 BULMARO TEJADA DF K21.9 Gastro-esophageal reflux disease without 01/11/2016 BULMARO TEJADA DF M48.02 Spinal stenosis, cervical region 01/11/2016 BULMARO TEJADA DF M50.11 Cervical disc disorder with radiculopath 01/11/2016 BULMARO TEJADA DA M50.12 Cervical disc disorder with radiculopath 01/11/2016 TERRELL BULMARO DF 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 01/11/2016 ANGELIC TEJADAEW DF Z95.1 Presence of aortocoronary bypass graft 02/20/2016 ANGELIC TEJADAEW DF M48.02 Spinal stenosis, cervical region 02/20/2016 TERRELLBULMARO DF M50.20 Other cervical disc displacement, unspec 02/20/2016 ANGELIC TEJADAEW DF Z98.1 Arthrodesis status 05/06/2016 ANGELIC TEJADAEW DF M54.2 Cervicalgia 05/06/2016 BULMARO TEJADA Z98.1 Arthrodesis status Procedures Code Description [place] [id number] [place]O CHOLECYSTECTOMY/GRAPH Fer BRADY, Charlie Burks 02/02/2012 08495 X-RAY EXAM OF SHOULDER 07/30/2015 [id number] Fusion of Cervical Vertebral Joint with BULMARO TEJADA 01/10/2016 [id number] Resection of Cervical Vertebral Disc, Op BULMARO TEJADA 01/10/2016 Results Test Result Range CBC With Platelet and Differential - 10/31/15 09:27 Absolute Basophils 0.04 10*3 0.00-0.20 Absolute Eosinophils 0.14 10*3 0.00-0.50 Absolute Lymphocytes 1.76 10*3 0.80-3.30 Absolute Monocytes 0.49 10*3 0.30-1.00 Absolute Neutrophils 2.05 10*3 1.90-7.00 Basophils 1 % 0-2 Eosinophils 3 % 0-4 HCT 44.3 % 42.0-52.0 HGB 15.2 g/dL 14.0-18.0 Immature Granulocytes 0.0 % 0.0-1.0 Lymphocytes 39 % 20-46 MCH 31.8 pg 27.0-32.0 MCHC 34.3 g/dL 32.0-36.0 MCV 92.7 fL 82.0-99.0 Monocytes 11 % 4-11 MPV 9.5 fL 8.8-14.8 Neutrophils 46 % 51-75 Platelet Count 202 K/uL 150-400 RBC 4.78 10*6/uL 4.60-6.20 RDW 13.0 % 11.5-14.5 WBC 4.5 K/uL 4.8-10.8 Comprehensive Metabolic Panel (CMP) - 10/31/15 09:27 Albumin 4.4 g/dL 3.4-4.8 Alkaline Phosphatase 59 U/L 40-150 ALT (SGPT) 17 U/L 0-55 Anion Gap 8 NA 3-20 AST (SGOT) 18 U/L 5-34 Bilirubin Total 0.7 mg/dL 0.2-1.2 BUN 12 mg/dL 8-26 Calcium 9.5 mg/dL 8.9-10.5 Chloride 102 mEq/L 99-111 CO2 29 mEq/L 23-31 Creatinine 0.84 mg/dL 0.72-1.25 Globulin 2.5 g/dL 1.8-4.0 Glucose 93 mg/dL 70-99 Potassium 4.2 mEq/L 3.5-5.2 Protein 6.9 g/dL 6.2-8.1 Sodium 139 mEq/L 135-144 eGFR - 10/31/15 09:27 eGFR >60 mL/min >60 TSH - 10/31/15 09:27 TSH 2.02 uIU/mL 0.35-4.94 Urinalysis with reflex microscopic - 10/31/15 09:40 Appearance Cloudy NA Bilirubin Negative NA Negative Blood Negative NA Negative Color Yellow NA Glucose, Urine Negative Negative Ketones Negative Negative Leukocyte Esterase Negative NA Negative Nitrites Negative NA Negative pH 7.0 NA 5.0-8.0 Protein Negative Negative Specific Paradox 1.017 NA 1.003-1.030 UA Collection type Clean Catch NA Urobilinogen 1.0 mg/dL <1.0 5778-6 - 01/10/16 09:13 Color of Urine Straw Straw Clarity of Urine Sl. Hazy Clear Glucose [Presence] in Urine by Test strip Negative Neg Bilirubin.total [Presence] in Urine by Test strip Negative Neg Ketones [Presence] in Urine by Test strip Negative Neg Specific gravity of Urine by Test strip 1.015 1.010-1.030 Hemoglobin [Mass/volume] in Urine by Test strip Negative Neg pH of Urine 7.5 5 - 8 Protein [Presence] in Urine Negative Neg Urobilinogen [Presence] in Urine by Test strip 0.2 EU/dl 0.2-1.0 Nitrite [Presence] in Urine by Test strip Negative Neg Leukocyte esterase [Presence] in Urine by Test strip Negative [place] 59341-2 - 01/10/16 09:37 Leukocytes [#/volume] in Blood 4.2 x10 4.6 - 10.2 Erythrocytes [#/volume] in Blood 4.63 x10 4.69 - 6.13 Hemoglobin [Mass/volume] in Blood 14.6 g/dl 13.5 - 17.0 Hematocrit [Volume Fraction] of Blood by Automated count 42.5 % 40.0 - 51.0 Erythrocyte mean corpuscular volume [Entitic volume] by Automated count 91.8 FL 80.0 - 97.0 Erythrocyte mean corpuscular hemoglobin [Entitic mass] by Automated count 31.5 pg 26.0-34.0 Erythrocyte mean corpuscular hemoglobin concentration [Mass/volume] by Automated count 34.4 g/dl 31.0 - 36.0 Erythrocyte distribution width [Ratio] by Automated count 12.8 % 11.0 - 15.0 Platelets [#/volume] in Blood 233 x10 142 - 424 Lymphocytes/100 leukocytes in Blood 34.9 % 17.5 - 47.9 Monocytes/100 leukocytes in Blood 10.8 % 2.0 - 17.0 Neutrophils/100 leukocytes in Blood 54.3 88597-5 38.3 - 69.0 2345-7 - 01/10/16 09:37 Glucose [Mass/volume] in Serum or Plasma 95 mg/dl 64 - 112 Urea nitrogen [Mass/volume] in Serum or Plasma 13.5 mg/dl 8.4 - 25.8 Creatinine [Mass/volume] in Serum or Plasma 0.9 mg/dl 0.7 - 1.2 Calcium [Mass/volume] in Serum or Plasma 9.90 mg/dl 8.30 - 10.60 Sodium [Moles/volume] in Serum or Plasma 143 mmol/L 135 - 151 Potassium [Moles/volume] in Serum or Plasma 4.0 mmol/L 3.5 - 5.0 Chloride [Moles/volume] in Serum or Plasma 101 mmol/L 98 - 113 Carbon dioxide, total [Moles/volume] in Venous blood 28 mmol /L 23 - 34 Hemoglobin [Mass/volume] in Blood - 01/11/16 04:55 Hemoglobin [Mass/volume] in Blood 14.3 g/dl 13.5 - 17.0 Hematocrit [Volume Fraction] of Blood by Automated count - 01/11/16 04:55 Hematocrit [Volume Fraction] of Blood by Automated count 39.8 % 40.0 - 51.0 Comprehensive metabolic 2000 panel - Serum or Plasma - 01/11/16 04:55 Glucose [Mass/volume] in Serum or Plasma 124 mg/dl 64 - 112 Urea nitrogen [Mass/volume] in Serum or Plasma 12.3 mg/dl 8.4 - 25.8 Creatinine [Mass/volume] in Serum or Plasma 0.8 mg/dl 0.7 - 1.2 Urea/Creatinine [Mass Ratio] in Serum or Plasma 15.4 6 - 26 Calcium [Mass/volume] in Serum or Plasma 9.60 mg/dl 8.30 - 10.60 Sodium [Moles/volume] in Serum or Plasma 137 mmol/L 135 - 151 Potassium [Moles/volume] in Serum or Plasma 4.7 mmol/L 3.5 - 5.0 Chloride [Moles/volume] in Serum or Plasma 98 mmol/L 98 - 113 Protein [Mass/volume] in Serum or Plasma 6.6 gm/dl 6.2 - 8.0 Albumin [Mass/volume] in Serum or Plasma 4.4 gm/dl 3.5 - 5.2 Globulin [Mass/volume] in Serum 2.2 gm/dl 2-4 Albumin/Globulin [Mass Ratio] in Serum or Plasma 2.0 1.1-2.4 Alanine aminotransferase [Enzymatic activity/volume] in Serum or Plasma 16 U/L 0 - 55 Alkaline phosphatase [Enzymatic activity/volume] in Serum or Plasma 58 U/L 53 - 128 Bilirubin.total [Mass/volume] in Serum or Plasma 0.80 mg/dl 0.10 - 1.20 Carbon dioxide, total [Moles/volume] in Venous blood 31 mmol /L 23 - 34 Magnesium [Mass/volume] in Serum or Plasma - 01/11/16 04:55 Magnesium [Mass/volume] in Serum or Plasma 2.1 mg/dl 1.8 - 2.6 Encounters ACCT No. Visit Date/Time Discharge Status Pt. Type Provider Facility Loc./Unit Complaint [id number] 02/02/2012 07:25:00 2011 13:30:00 DIS Outpatient Fer BRADY, Charlie Burks [address]
--- OUTSIDE RECORDS SUMMARY | 2016-09-23 09:26 | XMS REPORT | Referral Summary ---
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 Name Role Phone Maliha Gallegos Primary Care Physician [phone] Encounter Date(s): 03/12/15 - 03/12/15 [facility] [address] [place], [place] [address] Discharge Diagnosis: Lumbar spondylosis Discharge Diagnosis: Hip pain Discharge Disposition: 01-Home or Self Care Attending Physician: Ladi Page PA-C Admitting Physician: Ladi Page PA-C Referring Physician: Leobardo Gallegos MD Vital Signs Most recent to 1 oldest [Reference Range]: Blood Pressure 132/70 mmHg [90-140/60-90 mmHg] (03/12/15 10:27 AM) Problem List Condition Effective Dates Status Health Status Informant Allergic rhinitis Active (disorder)(Confirmed ) Arthropathy Active [...] Active infection(Confirmed) Epicondylitis, Active lateral (tennis elbow)(Confirmed) Lumbar Active radiculopathy(Confir med) Lumbar Active spondylosis(Confirme [...] Daily, # 90 tabs, 3 Refill(s), Pharmacy: [facility], 1 tabs Oral Daily,x90 days Start Date: 07/11/14 Stop Date: 07/06/15 Status: Ordered cholestyramine 4 g/5 g oral powder for reconstitution 1 packets, Oral, Daily, dissolve in 6 to 8 ounces of water; may increase to 2-3 packets in water daily;, # 60 Each, 11 Refill(s), Pharmacy: [facility], 1 packets Oral Daily,Instr:dissolve in 6 to 8 ounces of water; may increase to 2 -3 packets i... Start Date: 11/18/13 Status: Ordered citalopram 20 mg oral tablet 0.5 tabs, Oral, Daily, X 90 days, # 45 tabs, 3 Refill(s), Pharmacy: [facility], Instruct patient to schedule a complete physical with Dr. Gallegos, 0.5 tabs Oral Daily,x90 days Start Date: 07/11/14 Stop Date: 07/06/15 Status: Ordered clopidogrel 75 mg oral tablet 1 tabs, Oral, Daily, # 90 tabs, 3 Refill(s), Pharmacy: [facility], 1 tabs Oral Daily,x90 days [...] # 3 Each, 3 Refill(s), Pharmacy : [facility] Start Date: 07/11/14 Status: Ordered gabapentin 300 mg oral capsule 1 caps, Oral, Bedtime (once a day), # 90 caps, 3 Refill(s), Pharmacy: [facility], instruct patient to schedule a complete physical with Dr. Gallegos., 1 caps Oral Bedtime (once a day),x90 days Start Date: 07/11/14 Stop Date: 07/06/15 Status: Ordered Glucosamine & Chondroitin with MSM tabs, Oral, BID, 0 Refill(s) Start Date: 11/18/13 Status: Ordered Livalo 4 mg oral tablet 1 tabs, Oral, Daily, # 90 tabs, 3 Refill(s), Pharmacy: [facility], Instruct patient to schedule a complete physical with Dr. Gallegos, 1 tabs Oral Daily,x90 days Start Date: 07/11/14 Stop Date: 07/06/15 Status: Ordered losartan 50 mg oral tablet 1 tabs, Oral, Daily, # 90 tabs, 3 Refill(s), Pharmacy: [facility], instruct patient to schedule a [...] # 30 tabs, 11 Refill(s), Pharmacy : [facility], 1 tabs SubLingual q5min,PRN:as needed for chest pain,Instr: not to exceed... Start Date: 07/11/14 Status: Ordered Saw Finley oral capsule 450 mg, Oral, BID, 0 Refill(s) Start Date: 11/13/13 Status: Ordered Vitamin B Complex oral capsule 1 caps, Oral, Daily, 0 Refill(s) Start Date: 07/11/14 Status: Ordered Vitamin D3 1000 intl units oral capsule 1 caps, Oral, Daily, 0 Refill(s) Start Date: 11/13/13 Status: Ordered Results No data available for this section Immunizations Vaccine Date Refusal Reason hepatitis A-hepatitis B vaccine 03/30/13 hepatitis A-hepatitis B vaccine 09/28/12 hepatitis A-hepatitis B vaccine 07/30/12 influenza virus vaccine, live 06/30/13 pneumococcal 23-polyvalent vaccine 07/30/12 tetanus/diphtheria/pertussis, acel(Tdap) 06/25/11 zoster vaccine live 09/08/14 Procedures Procedure Date Related Diagnosis Body Site Colonoscopy normal1 11/20/14 Esophagogastroduodenoscopy and biopsy2 11/20/14 [...] Visit Note Author: Ladi Page PA-C Date: 03/12/15 Assessment/Plan Hip pain Lumbar spondylosis Orders: MRI LE Joint w/o Contrast Right I discussed this patient's plan of care with Dr. Siu. I also reviewed the patient's most recent lumbarMRI. According to this MRI the patient has mild facet arthropathy in the lower lumbar spine. He does have disc protrusion at L5-S1 with bilateral foraminal stenosis. His primary complaint today is his right hip pain. On x-ray, the patienthas some degenerative changes of the bilateral SI joints, but was otherwise unremarkable. Dr. Siu recommends obtaining an MRI of the right hip.He has previously had a right intra- articular hip joint injection, providing him significant relief, but only for short time. The patient will follow-up here with results of his investigations. The patient voiced understanding and agrees to the above plans. The above was in discussion with Dr. Siu.
--- OUTSIDE RECORDS SUMMARY | 2016-09-23 09:26 | XMS REPORT | Referral Summary ---
Author Organization Unknown Address Unknown Phone Unavailable Care Team Providers Care Pinmaker Name Role Phone Maliha Gallegos Primary Care Physician [phone] Encounter VC Date(s): 07/11/14 - 07/11/14 Via JARRET Nieves, Franc, Family [address] [place], [place] [address] Discharge Diagnosis: Lumbar radiculopathy Discharge Diagnosis: Hypercholesterolemia Discharge Diagnosis: Coronary arteriosclerosis (disorder) Discharge Diagnosis: Chronic depression Discharge Diagnosis: Back pain, thoracic Discharge Diagnosis: Chronic low back pain Discharge Diagnosis: Essential hypertension (disorder) Discharge Diagnosis: GERD (gastroesophageal reflux disease) Discharge Disposition: Home or Self Care Attending Physician: Leobardo Gallegos MD Admitting Physician: Leobardo Gallegos MD Vital Signs Most recent to 1 oldest [Reference Range]: Temperature Tympanic 36.3 degC [36.6-38.1 degC] *LOW* (07/11/14 11:30 AM) Peripheral Pulse 60 bpm Rate [60-100 bpm] (07/11/14 11:30 AM) Blood Pressure 114/60 mmHg [90-140/60-90 mmHg] (07/11/14 11:30 AM) Problem List Condition Effective Dates Status Health Status Informant Allergic rhinitis Active (disorder)(Confirmed ) Arthropathy Active (disorder)(Confirmed ) Cholelithiasis(Confi 2012 Active rmed)1 Phantom Heart Active pain(Confirmed) Chronic Active depression(Confirmed ) Chronic low back Active pain(Confirmed) Coronary Active arteriosclerosis (disorder)(Confirmed ) Coronary Active atherosclerosis(Conf irmed) Dry eyes(Confirmed) Active Essential Active hypertension (disorder)(Confirmed ) Gastroduodenitis Active (disorder)(Confirmed ) GERD Active (gastroesophageal reflux disease)(Confirmed) Hypercholesterolemia Active (Confirmed) Hyperlipidemia(Confi Active rmed) Ear Active infection(Confirmed) Epicondylitis, Active lateral (tennis elbow)(Confirmed) Lumbar Active radiculopathy(Confir med) OA Active (osteoarthritis)(Con firmed) Pneumonia(Confirmed) Active Psoriasis(Confirmed) Active Sinus Active infection(Confirmed) Tension Active headache(Confirmed) Chicken Active pox(Confirmed) 1Hospitalized. Allergies, Adverse Reactions, Alerts Substance Reaction Severity Status lisinopril cough Active lovastatin hands puffy and very stiff Active simvastatin myalgias Active Medications amLODIPine 2.5 mg oral tablet 1 tabs, Oral, Daily, # 90 tabs, 3 Refill(s), Pharmacy: [facility], 1 tabs Oral Daily,x90 days Start Date: 07/11/14 Stop Date: 07/06/15 Status: Ordered cholestyramine 4 g/5 g oral powder for reconstitution 1 packets, Oral, Daily, dissolve in 6 to 8 ounces of water; may increase to 2-3 packets in water daily;, # 60 Each, 11 Refill(s), Pharmacy: [facility], 1 packets Oral Daily,Instr:dissolve in 6 to 8 ounces of water; may increase to 2 -3 packets i... Special Instructions: dissolve in 6 to 8 ounces of water; may increase to 2-3 packets in water daily; Start Date: 11/18/13 Status: Ordered citalopram 20 mg oral tablet 0.5 tabs, Oral, Daily, X 90 days, # 45 tabs, 3 Refill(s), Pharmacy: [facility], Instruct patient to schedule a complete physical with Dr. Gallegos, 0.5 tabs Oral Daily,x90 days Start Date: 07/11/14 Stop Date: 07/06/15 Status: Ordered clopidogrel 75 mg oral tablet 1 tabs, Oral, Daily, # 90 tabs, 3 Refill(s), Pharmacy: [facility], 1 tabs Oral Daily,x90 days Start Date: [...] # 3 Each, 3 Refill(s), Pharmacy : [facility] Start Date: 07/11/14 Status: Ordered gabapentin 300 mg oral capsule 1 caps, Oral, Bedtime (once a day), # 90 caps, 3 Refill(s), Pharmacy: [facility], instruct patient to schedule a complete physical with Dr. Gallegos., 1 caps Oral Bedtime (once a day),x90 days Start Date: 07/11/14 Stop Date: 07/06/15 Status: Ordered Glucosamine & Chondroitin with MSM tabs, Oral, BID, 0 Refill(s) Start Date: 11/18/13 Status: Ordered Livalo 4 mg oral tablet 1 tabs, Oral, Daily, # 90 tabs, 3 Refill(s), Pharmacy: [facility], Instruct patient to schedule a complete physical with Dr. Gallegos, 1 tabs Oral Daily,x90 days Start Date: 07/11/14 Stop Date: 07/06/15 Status: Ordered losartan 50 mg oral tablet 1 tabs, Oral, Daily, # 90 tabs, 3 Refill(s), Pharmacy: [facility], instruct patient to schedule a [...] # 30 tabs, 11 Refill(s), Pharmacy : [facility], 1 tabs SubLingual q5min,PRN:as needed for chest pain,Instr: not to exceed... Special Instructions: not to exceed 3 doses/15 min--if pain persists, seek medical attention Start Date: 07/11/14 Status: Ordered Saw [employer] [place] oral capsule 450 mg, Oral, BID, 0 [...] 07/30/12 influenza virus vaccine, live 06/30/13 pneumococcal 13-valent conjugate vaccine 07/30/12 tetanus/diphtheria/pertussis, acel(Tdap) 06/25/11 Procedures Procedure Date Related Diagnosis Body Site Excision of mucous cyst with local rotation 10/27/13 flat, LT MF Cardiac catheterization 08/01/11 Stent placement, cardiac 08/01/11 Angioplasty 2011 Cholecystectomy 2011 Percutaneous coronary intervention 2011 Angioplasty 01/2010 Percutaneous coronary intervention 2009 Stent placement 2009 CABG 03/2009 Colonoscopy 2004 Vasectomy 1990 Circumcision 1952 Laparoscopic cholecystectomy Social History Social History Type Response Smoking Status Never smoker Assessment and Plan Extracted from: Title: Ambulatory Patient Education Author: Leobardo Gallegos MD Date: 07/11 Family Medicine Back Exercises Back exercises help treat and prevent back injuries. The goal of back exercises is to increase the strength of your abdominal and back muscles and the flexibility of your back. These exercises should be started when you no longer have back pain. Back exercises include: Pelvic Tilt. Lie on your back with your knees bent. Tilt your pelvis until the lower part of your back is against the floor. Hold this position 5 to 10 sec and repeat 5 to 10 times. Knee to Chest. Pull first 1 knee up against your chest and hold for 20 to 30 seconds, repeat this with the other knee, and then both knees. This may be done with the other leg straight or bent, whichever feels better. Sit-Ups or Curl-Ups. Bend your knees 90 degrees. Start with tilting your pelvis, and do a partial, slow sit-up, lifting your trunk only 30 to 45 degrees off the floor. Take at least 2 to 3 seconds for each sit-up. Do not do sit-ups with your knees out straight. If partial sit-ups are difficult, simply do the above but with only tightening your abdominal muscles and holding it as directed. Hip-Lift. Lie on your back with your knees flexed 90 degrees. Push down with your feet and shoulders as you raise your hips a couple inches off the floor; hold for 10 seconds, repeat 5 to 10 times. Back arches. Lie on your stomach, propping yourself up on bent elbows. Slowly press on your hands, causing an arch in your low back. Repeat 3 to 5 times. Any initial stiffness and discomfort should lessen with repetition over time. Shoulder-Lifts. Lie face down with arms beside your body. Keep hips and torso pressed to floor as you slowly lift your head and shoulders off the floor. Do not overdo your exercises, especially in the beginning. Exercises may cause you some mild back discomfort which lasts for a few minutes; however, if the pain is more severe, or lasts for more than 15 minutes, do not continue exercises until you see your caregiver. Improvement with exercise therapy for back problems is slow. See your caregivers for assistance with developing a proper back exercise program. Document Released: 07/09/2005 Document Revised: 08/23/2012 Document Reviewed: [facility] Patient Information 2014 [employer]. Back Pain, Adult Low back pain is very common. About 1 in 5 people have back pain.The cause of low back pain is rarely dangerous. The pain often gets better over time.About half of people with a sudden onset of back pain feel better in just 2 weeks. About 8 in 10 people feel better by 6 weeks. CAUSES Some common causes of back pain include: Strain of the muscles or ligaments supporting the spine. Wear and tear (degeneration ) of the spinal discs. Arthritis. Direct injury to the back. DIAGNOSIS Most of the time, the direct cause of low back pain is not known.However, back pain can be treated effectively even when the exact cause of the pain is unknown.Answering your caregiver's questions about your overall health and symptoms is one of the most accurate ways to make sure the cause of your pain is not dangerous. If your caregiver needs more information, he or she may order lab work or imaging tests (X-rays or MRIs).However, even if imaging tests show changes in your back, this usually does not require surgery. HOME CARE INSTRUCTIONS For many people, back pain returns.Since low back pain is rarely dangerous, it is often a condition that people can learn to manageon their own. Remain active. It is stressful on the back to sit or earth moving technician one place. Do not sit, drive, or earth moving technician one place for more than 30 minutes at a time. Take short walks on level surfaces as soon as pain allows.Try to increase the length of time you walk each day. Do not stay in bed.Resting more than 1 or 2 days can delay your recovery. Do not avoid exercise or work.Your body is made to move.It is not dangerous to be active, even though your back may hurt.Your back will likely heal faster if you return to being active before your pain is gone. Pay attention to your body when you bend and lift. Many people have less discomfortwhen lifting if they bend their knees, keep the load close to their bodies,and avoid twisting. Often, the most comfortable positions are those that put less stress on your recovering back. Find a comfortable position to sleep. Use a firm mattress and lie on your side with your knees slightly bent. If you lie on your back, put a pillow under your knees. Only take qipx-tjg-zxypdut or prescription medicines as directed by your caregiver. Psmb-zyw-azfgpcm medicines to reduce pain and inflammation are often the most helpful.Your caregiver may prescribe muscle relaxant drugs.These medicines help dull your pain so you can more quickly return to your normal activities and healthy exercise. Put ice on the injured area. Put ice in a plastic bag. Place a towel between your skin and the bag. Leave the ice on for 15-20 minutes, 3-4 times a day for the first 2 to 3 days. After that, ice and heat may be alternated to reduce pain and spasms. Ask your caregiver about trying back exercises and gentle massage. This may be of some benefit. Avoid feeling anxious or stressed.Stress increases muscle tension and can worsen back pain.It is important to recognize when you are anxious or stressed and learn ways to manage it.Exercise is a great option. SEEK MEDICAL CARE IF: You have pain that is not relieved with rest or medicine. You have pain that does not improve in 1 week. You have new symptoms. You are generally not feeling well. SEEK IMMEDIATE MEDICAL CARE IF: You have pain that radiates from your back into your legs. You develop new bowel or bladder control problems. You have unusual weakness or numbness in your arms or legs. You develop nausea or vomiting. You develop abdominal pain. You feel faint. Document Released: 06/01/2006 Document Revised: 11/30/2012 Document Reviewed: [facility] Patient Information [address] [employer] [facility]. No follow up information was provided. Extracted from: Title: CAD, LBP, HTN Author: Leobardo Gallegos MD Date: 07/11/14 Impression and Plan Diagnosis Lumbar radiculopathy (ICD9 724.4, Discharge, Medical). Hypercholesterolemia (ICD9 272.0, Discharge, Medical). GERD (gastroesophageal reflux disease) (ICD9 530.81, Discharge, Medical). Essential hypertension (disorder) (ICD9 401.9, Discharge, Medical). Coronary arteriosclerosis (disorder) (ICD9 414.00, Discharge, Medical). Chronic low back pain (ICD9 724.2, Discharge, Medical). Chronic depression (ICD9 311, Discharge, Medical). Plan: Continue your current meds. Get xrays of your back today. MRI to be scheduled. See me in 2-3 months for a physical. , Avoid Prilosec, but you could take Zantac or Pepcid as needed for heartburn. , Stop the aspirin and switch to Plavix 75 mg daily. . Orders Orders (Selected) Outpatient Orders Ordered Office Visit Level 4 Est 21210: Future (On Hold) MRI Spine Lumbar w/o Contrast: XR Spine Lumbosacral Minimum 4 Views: XR Spine Thoracic 3 Views: Prescriptions Prescribed Flonase 50 mcg/inh nasal spray: 2 sprays, Nasal, Daily, 3 Each, PRN: as needed for allergies Livalo 4 mg oral tablet: 1 tabs, Oral, Daily, 90 tabs Nitrostat 0.4 mg sublingual tablet: 1 tabs, SubLingual, q5min, not to exceed 3 doses/15 min--if pain persists, seek medical attention, 30 tabs, PRN: as needed for chest pain amLODIPine 2.5 mg oral tablet: 1 tabs, Oral, Daily, 90 tabs citalopram 20 mg oral tablet: 0.5 tabs, Oral, Daily, 45 tabs clopidogrel 75 mg oral tablet: 1 tabs, Oral, Daily, 90 tabs gabapentin 300 mg oral capsule: 1 caps, Oral, Bedtime (once a day), 90 caps losartan 50 mg oral tablet: 1 tabs, Oral, Daily, 90 tabs. Dx/Order Association Plan: Diagnosis: Back pain, thoracic Comment: Ordered: Office Visit Level 4 Est 66293; 07/11/14 12:09:00 OPERATIONS ASSISTANT, Chronic low back pain | Lumbar radiculopathy | Back pain, thoracic | Coronary arteriosclerosis (disorder) | Essential hypertension (disorder) Diagnosis: Chronic depression Comment: Ordered: Office Visit Level 4 Est [id number]; 07/11/14 12:09:00 OPERATIONS ASSISTANT, Chronic low back pain | Lumbar radiculopathy | Back pain, thoracic | Coronary arteriosclerosis (disorder) | Essential hypertension (disorder) Diagnosis: Chronic low back pain Comment: Ordered: Office Visit Level 4 Est [id number]; 07/11/14 12:09:00 OPERATIONS ASSISTANT, Chronic low back pain | Lumbar radiculopathy | Back pain, thoracic | Coronary arteriosclerosis (disorder) | Essential hypertension (disorder) Diagnosis: Coronary arteriosclerosis (disorder) Comment: Ordered: Office Visit Level 4 Est [id number]; 07/11/14 12:09:00 OPERATIONS ASSISTANT, Chronic low back pain | Lumbar radiculopathy | Back pain, thoracic | Coronary arteriosclerosis (disorder) | Essential hypertension (disorder) Diagnosis: Essential hypertension (disorder) Comment: Ordered: Office Visit Level 4 Est [id number]; 07/11/14 12:09:00 OPERATIONS ASSISTANT, Chronic low back pain | Lumbar radiculopathy | Back pain, thoracic | Coronary arteriosclerosis (disorder) | Essential hypertension (disorder) Diagnosis: GERD (gastroesophageal reflux disease) Comment: Ordered: Office Visit Level 4 Est [id number]; 07/11/14 12:09:00 OPERATIONS ASSISTANT, Chronic low back pain | Lumbar radiculopathy | Back pain, thoracic | Coronary arteriosclerosis (disorder) | Essential hypertension (disorder) Diagnosis: Hypercholesterolemia Comment: Ordered: Office Visit Level 4 Est [id number]; 07/11/14 12:09:00 OPERATIONS ASSISTANT, Chronic low back pain | Lumbar radiculopathy | Back pain, thoracic | Coronary arteriosclerosis (disorder) | Essential hypertension (disorder) Diagnosis: Lumbar radiculopathy Comment: Ordered: Office Visit Level 4 Est [id number]; 07/11/14 12:09:00 OPERATIONS ASSISTANT, Chronic low back pain | Lumbar radiculopathy | Back pain, thoracic | Coronary arteriosclerosis (disorder) | Essential hypertension (disorder) Additional Orders: Comment: Ordered: Flonase 50 mcg/inh nasal spray,2 sprays, Nasal, Daily, as needed for allergies, # 3 Each, 3 Refill(s), Pharmacy: [facility] Ordered: Livalo 4 mg oral tablet,1 tabs, Oral, Daily, # 90 tabs, 3 Refill(s), Pharmacy: [facility], Instruct patient to schedule a complete physical with Dr. Gallegos, 1 tabs Oral Daily,x90 days Future Orders: MRI Spine Lumbar w/o Contrast,*Est. 07/11/14 due within 1 months, Routine, Reason: Radiculopathy lumbar / thoracic, No, Chronic low back pain | Lumbar radiculopathy Ordered: Nitrostat 0.4 mg sublingual tablet,1 tabs, SubLingual, q5min, as needed for chest pain, not to exceed 3 doses/15 min--if pain persists , seek medical attention, # 30 tabs, 11 Refill(s), Pharmacy: [facility], 1 tabs SubLingual q5min,PRN:as needed for chest pain,Instr:not to exceed... Future Orders: XR Spine Lumbosacral Minimum 4 Views,*Est. 07/11/14 due within 1 days, Routine, Reason: Pain, lumbar, Chronic low back pain | Lumbar radiculopathy Future Orders: XR Spine Thoracic 3 Views,*Est. 07/11/14 due within 1 days, Routine, Reason: Pain, thoracic, Back pain, thoracic Ordered: amLODIPine 2.5 mg oral tablet,1 tabs, Oral, Daily, # 90 tabs, 3 Refill(s), Pharmacy: [facility], 1 tabs Oral Daily,x90 days Ordered: citalopram 20 mg oral tablet,0.5 tabs, Oral, Daily, X 90 days, # 45 tabs, 3 Refill(s), Pharmacy: [facility], Instruct patient to schedule a complete physical with Dr. Gallegos, 0.5 tabs Oral Daily,x90 days Ordered: clopidogrel 75 mg oral tablet,1 tabs, Oral, Daily, # 90 tabs, 3 Refill(s), Pharmacy: [facility], 1 tabs Oral Daily,x90 days Ordered: gabapentin 300 mg oral capsule,1 caps, Oral, Bedtime ( once a day), # 90 caps, 3 Refill(s), Pharmacy: [facility], instruct patient to schedule a complete physical with Dr. Gallegos., 1 caps Oral Bedtime ( once a day),x90 days Ordered: losartan 50 mg oral tablet,1 tabs, Oral, Daily, # 90 tabs , 3 Refill(s), Pharmacy: [facility], instruct patient to schedule a complete physical with Dr. Gallegos, 1 tabs Oral Daily,x90 days End of Orders ."
--- OUTSIDE RECORDS SUMMARY | 2016-09-23 09:26 | XMS REPORT | Referral Summary ---
Author Organization Unknown Address Unknown Phone Unavailable Care Team Providers Care Senior Trial Attorney Name Role Phone Maliha Gallegos Primary Care Physician [phone] Encounter VC Date(s): 09/05/14 - 09/05/14 Via JARRET Nieves, Vern [facility], [facility] [address] [place], [place] [address] Discharge Diagnosis: Thoracic back pain Discharge Diagnosis: Spondylosis, thoracic Discharge Disposition: Home or Self Care Attending Physician: Lui Siu MD Admitting Physician: Lui Siu MD Vital Signs Most recent to 1 oldest [Reference Range]: Peripheral Pulse 53 bpm Rate [60-100 bpm] *LOW* (09/05/14 9:55 AM) Respiratory Rate 16 br/min [14-20 br/min] (09/05/14 9:55 AM) Blood Pressure 28/68 mmHg [90-140/60-90 mmHg] *LOW* (09/05/14 9:55 AM) Most recent to 1 oldest [Reference Range]: SpO2 100 % (09/05/14 9:55 AM) Problem List Condition Effective Dates Status [...] med) OA Active (osteoarthritis)(Con firmed) Pneumonia(Confirmed) Active Lumbar disc Active herniation(Confirmed ) Psoriasis(Confirmed) Active Sinus Active infection(Confirmed) Spinal stenosis, Active lumbar region, without neurogenic claudication(Confirm ed) Tension Active headache(Confirmed) Mid back Active pain(Confirmed) Spondylosis, Active thoracic(Confirmed) Chicken Active pox(Confirmed) 1Hospitalized. Allergies, Adverse Reactions, Alerts Substance Reaction Severity Status lisinopril cough Active lovastatin hands puffy and very stiff Active simvastatin myalgias Active Medications amLODIPine 2.5 mg oral tablet 1 tabs, Oral, Daily, # 90 tabs, 3 Refill(s), Pharmacy: [facility], 1 tabs Oral Daily,x90 days Start Date: 07/11/14 Stop Date: 07/06/15 Status: Ordered cholestyramine 4 g/5 g oral powder for reconstitution 1 packets, Oral, Daily, dissolve in 6 to 8 ounces of water; may increase to 2-3 packets in water daily;, # 60 Each, 11 Refill(s), Pharmacy: [facility], 1 packets Oral Daily,Instr:dissolve in 6 to 8 ounces of water; may increase to 2 -3 packets i... Special Instructions: dissolve in 6 to 8 ounces of water; may increase to 2-3 packets in water daily; Start Date: 11/18/13 Status: Ordered citalopram 20 mg oral tablet 0.5 tabs, Oral, Daily, X 90 days, # 45 tabs, 3 Refill(s), Pharmacy: [facility], Instruct patient to schedule a complete physical with Dr. Gallegos, 0.5 tabs Oral Daily,x90 days Start Date: 07/11/14 Stop Date: 07/06/15 Status: Ordered clopidogrel 75 mg oral tablet 1 tabs, Oral, Daily, # 90 tabs, 3 Refill(s), Pharmacy: [facility], 1 tabs Oral Daily,x90 days Start [...] # 3 Each, 3 Refill(s), Pharmacy : [facility] Start Date: 07/11/14 Status: Ordered gabapentin 300 mg oral capsule 1 caps, Oral, Bedtime (once a day), # 90 caps, 3 Refill(s), Pharmacy: [facility], instruct patient to schedule a complete physical with Dr. Gallegos., 1 caps Oral Bedtime (once a day),x90 days Start Date: 07/11/14 Stop Date: 07/06/15 Status: Ordered Glucosamine & Chondroitin with MSM tabs, Oral, BID, 0 Refill(s) Start Date: 11/18/13 Status: Ordered Livalo 4 mg oral tablet 1 tabs, Oral, Daily, # 90 tabs, 3 Refill(s), Pharmacy: [facility], Instruct patient to schedule a complete physical with Dr. Gallegos, 1 tabs Oral Daily,x90 days Start Date: 07/11/14 Stop Date: 07/06/15 Status: Ordered losartan 50 mg oral tablet 1 tabs, Oral, Daily, # 90 tabs, 3 Refill(s), Pharmacy: [facility], instruct patient to schedule a complete [...] # 30 tabs, 11 Refill(s), Pharmacy : [facility], 1 tabs SubLingual q5min,PRN:as needed for chest pain,Instr: not to exceed... Special Instructions: not to exceed 3 doses/15 min--if pain persists, seek medical attention Start Date: 07/11/14 Status: Ordered Saw [place] oral capsule 450 mg, Oral, BID, 0 [...] Procedures Procedure Date Related Diagnosis Body Site Injection(s), diagnostic or therapeutic 09/05/14 agent, paravertebral facet (zygapophyseal) joint (or nerves innervating that joint) with image guidance (fluoroscopy or CT), cervical or thoracic; second level (List separately in addition to code for primary proced Injection(s), diagnostic or therapeutic 09/05/14 agent, paravertebral facet (zygapophyseal) joint (or nerves innervating that joint) with image guidance (fluoroscopy or CT), cervical or thoracic; single level Rigth Thoracic Mid-Level Facet 09/05/14 Excision of mucous cyst with local rotation 10/27/13 flat, LT MF Cardiac catheterization 08/01/11 Stent placement, cardiac 08/01/11 Angioplasty 2011 Cholecystectomy 2011 Percutaneous coronary intervention 2011 Angioplasty 01/2010 Percutaneous coronary intervention 2010 Stent placement 2009 CABG 03/2009 Colonoscopy 2005 Vasectomy 1990 Circumcision 1952 Laparoscopic cholecystectomy Social History Social History Type Response Smoking Status Never smoker Assessment and Plan No data available for this section
--- OUTSIDE RECORDS SUMMARY | 2016-09-23 09:26 | XMS REPORT | Referral Summary ---
Author Author [facility] Organization [facility] Address Unknown Phone Unavailable Care Team Providers Care Quantitative Software Engineer Name Role Phone Maliha Gallegos Primary Care Physician [phone] Encounter VC Date(s): 09/24/15 - 09/24/15 [facility] [address] [place], [place] [address] Discharge Disposition: 01-Home or Self Care Attending Physician: Ladi Page PA-C Admitting Physician: Ladi Page PA-C Vital Signs Most recent to 1 oldest [Reference Range]: Temperature Oral 36.5 degC [35.8-37.3 degC] (09/24/15 9:01 AM) Blood Pressure 128/76 mmHg [90-140/60-90 mmHg] (09/24/15 9:01 AM) Problem List Condition Effective Dates [...] Daily, # 45 tabs, 0 Refill(s), Pharmacy: [facility] , 0.5 tabs Oral Daily Start Date: 06/01/15 Status: Ordered clopidogrel 75 mg oral tablet See Instructions, 1 tabs Oral Daily, # 90 tabs, eRx: [facility], 1 tabs Oral Daily Start Date: 09/17/15 Status: Ordered Co-Q10 200 mg oral capsule 1 caps, Oral, Daily, # 30 caps, 0 Refill(s) Start Date: 11/18/13 Status: Ordered famotidine 40 mg oral tablet 40 mg 1 tabs, Oral, Bedtime (once a day), # 30 tabs, 5 Refill(s), Pharmacy: [facility], 1 tabs Oral Bedtime (once a day) Start Date: 07/12/15 Status: Ordered Fish Oil 1200 mg oral capsule 2 caps, Oral, BID, 0 Refill(s) Start Date: 07/11/14 Status: Ordered Flonase 50 mcg/inh nasal spray 2 sprays, Nasal, Daily, as needed for allergies, # 3 Each, 3 Refill(s), Pharmacy : [facility] Start Date: 07/11/14 Status: Ordered gabapentin 300 mg oral capsule 300 mg 1 caps, Oral, Bedtime (once a day), # 90 caps, 0 Refill(s), Pharmacy: [facility], 1 caps Oral Bedtime (once a day) Start Date: 09/10/15 Status: Ordered Glucosamine & Chondroitin with MSM tabs, Oral, BID, 0 Refill(s) Start Date: 11/18/13 Status: Ordered Livalo 4 mg oral tablet 4 mg 1 tabs, Oral, Daily, PT. IS DUE FOR LABS., # 90 tabs, 0 Refill(s), Pharmacy : [facility], 1 tabs Oral Daily,Instr:PT. IS DUE FOR LABS. Start Date: 09/10/15 Status: Ordered losartan 50 mg oral tablet 50 mg 1 tabs, Oral, Daily, PT. IS DUE FOR LABS., # 90 tabs, 0 Refill(s), Pharmacy: [facility], 1 tabs Oral Daily,Instr:PT. IS DUE FOR LABS. Start Date: 09/10/15 Status: Ordered multivitamin 1 tabs, Oral, Daily, 0 Refill(s) Start Date: 11/13/13 Status: Ordered Nitrostat 0.4 mg sublingual tablet 1 tabs, SubLingual, q5min, as needed for chest pain, not to exceed 3 doses/15 min--if pain persists, seek medical attention, # 30 tabs, 11 Refill(s), Pharmacy : [facility], 1 tabs SubLingual q5min,PRN:as needed for chest pain,Instr: not to exceed... Start Date: 07/11/14 Status: Ordered Saw [place] oral capsule 450 mg, Oral, BID, 0 [...] pain, # 100 g, 0 Refill(s), Pharmacy: [facility] Start Date: 04/04/15 Status: Ordered [...]
--- OUTSIDE RECORDS SUMMARY | 2016-09-23 09:26 | XMS REPORT | Continuity of Care Document ---
Author Author [facility] Address [address] [place] [address] Phone Care Team Providers Care Work Order Detailer Name Role Phone Leobardo Gallegos PP Unavailable Payers Payer name Insurance type Covered republican ID Authorization(s) Unknown Problems Condition Effective Dates (start - stop) Clinical Status Cyst of finger - *Symptomatic Coronary atherosclerosis of unspecified type of vessel, [place] or graft - *Chronic Unspecified essential hypertension [...] reflux disease) - *Chronic Psoriasis - *Chronic Chest pain, unspecified - Intermittent RUQ abdominal pain - Intermittent CAD (coronary artery disease) - *Chronic Hypertension - *Chronic GERD (gastroesophageal reflux disease) - *Chronic Hypercholesterolemia - *Chronic Dizziness - *Chronic Chest pain at rest - Intermittent CAD (coronary artery disease) - *Chronic Hypertension - *Chronic Hypercholesterolemia - *Chronic Fatigue - *Chronic Coronary atherosclerosis of unspecified type of vessel, [place] or graft - *Chronic Acute sinusitis, unspecified - *Acute Unspecified chest pain - *Acute Unspecified orthopedic aftercare - *Routine CAD (coronary artery disease) - *Acute Hypertension - *Chronic Rotator cuff tendinitis - *Chronic Low back pain radiating to left leg - *Chronic Other benign neoplasm of connective and other soft tissue of upper limb, including shoulder - *Poor control Benign essential hypertension - *Poor control Influenza [...] *Stable Hypertension - *Controlled Hypercholesterolemia - *Chronic Dermatitis - *Acute Psoriasis - Persistent Family [...] -lymphoma Yes Father (Unknown) Hypertension Yes Mother (Alive) Congestive heart failure Yes Paternal grandmother (Unknown) Myocardial infarction Yes Social History Social History Element Description Quantity Unknown Allergies, Adverse Reactions, Alerts Substance Reaction Severity Status SIMVASTATIN myalgias Unknown LOVASTATIN hands puffy and very stiff Unknown LISINOPRIL cough Unknown Medications Medication Instructions Dosage Effective Dates (start - stop) Status multivitamin tablet take 1 tablet by oral [...] in each nostril 100 MCG - Active clopidogrel 75 mg tablet take 1 tablet (75MG) by oral route every day 75 MG - Active citalopram 20 mg tablet Take 1/2 tablet by mouth every day. - Active gabapentin 300 mg capsule Take 1 capsules by mouth at bedtime. 2013 - Active Protonix 40 mg tablet,delayed release Take 1 tablet by mouth daily, - Active [place] 5 mg-325 mg tablet take 1 - 2 Tablet by oral route every 4 hours as needed for pain 0 - Active Immunizations Vaccine Date Status Comments Twinrix completed Pneumo (2 yrs or older)(PPV) completed Twinrix completed Twinrix completed Flu (split) (3 yrs or older) completed Results Test Name Date and Time Measure Units Reference Range Abnormal Flag Comments Unknown Vital Signs Date / Time: Height Weight Pulse Rate Blood Pressure Temperature /08:55:00 73.00 in 199.00 lbs 98.4 F Procedures Procedure Date Unknown Encounters Encounter Location Date Patient Visit [facility] Patient Visit [facility] Patient Visit [facility] Patient Visit [facility] Patient Visit [facility] Patient Visit [facility] Patient Visit [facility] Patient Visit [facility] Patient Visit [facility] Patient Visit [facility] Patient [facility] Patient Visit [facility] Patient [facility] Patient [facility] Patient Visit [facility] Patient [facility] Patient [facility] Patient Visit [facility] Patient Visit [facility] Patient Visit [facility] Patient Visit [facility] Advance Directives Directive Effective Date Unknown
--- OUTSIDE RECORDS SUMMARY | 2016-09-23 09:27 | XMS REPORT | Referral Summary ---
Author Author [facility] Organization [facility] Address Unknown Phone Unavailable Care Team Providers Care Cold Working Supervisor Name Role Phone Maliha Gallegos Primary Care Physician [phone] Encounter VC Date(s): 10/20/14 - 10/20/14 [facility] [address] [place] [address] [place] [id number] Discharge Diagnosis: Dysphagia Discharge Diagnosis: Family history [...] Daily, # 90 tabs, 3 Refill(s), Pharmacy: [facility], 1 tabs Oral Daily,x90 days Start Date: 07/11/14 Stop Date: 07/06/15 Status: Ordered cholestyramine 4 g/5 g oral powder for reconstitution 1 packets, Oral, Daily, dissolve in 6 to 8 ounces of water; may increase to 2-3 packets in water daily;, # 60 Each, 11 Refill(s), Pharmacy: [facility], 1 packets Oral Daily,Instr:dissolve in 6 to 8 ounces of water; may increase to 2 -3 packets i... Start Date: 11/18/13 Status: Ordered citalopram 20 mg oral tablet 0.5 tabs, Oral, Daily, X 90 days, # 45 tabs, 3 Refill(s), Pharmacy: [facility], Instruct patient to schedule a complete physical with Dr. Gallegos, 0.5 tabs Oral Daily,x90 days Start Date: 07/11/14 Stop Date: 07/06/15 Status: Ordered clopidogrel 75 mg oral tablet 1 tabs, Oral, Daily, # 90 tabs, 3 Refill(s), Pharmacy: [facility], 1 tabs Oral Daily,x90 days [...] # 3 Each, 3 Refill(s), Pharmacy : [facility] Start Date: 07/11/14 Status: Ordered gabapentin 300 mg oral capsule 1 caps, Oral, Bedtime (once a day), # 90 caps, 3 Refill(s), Pharmacy: [facility], instruct patient to schedule a complete physical with Dr. Gallegos., 1 caps Oral Bedtime (once a day),x90 days Start Date: 07/11/14 Stop Date: 07/06/15 Status: Ordered Glucosamine & Chondroitin with MSM tabs, Oral, BID, 0 Refill(s) Start Date: 11/18/13 Status: Ordered Livalo 4 mg oral tablet 1 tabs, Oral, Daily, # 90 tabs, 3 Refill(s), Pharmacy: [facility], Instruct patient to schedule a complete physical with Dr. Gallegos, 1 tabs Oral Daily,x90 days Start Date: 07/11/14 Stop Date: 07/06/15 Status: Ordered losartan 50 mg oral tablet 1 tabs, Oral, Daily, # 90 tabs, 3 Refill(s), Pharmacy: [facility], instruct patient to schedule a [...] # 30 tabs, 11 Refill(s), Pharmacy : [facility], 1 tabs SubLingual q5min,PRN:as needed for chest pain,Instr: not to exceed... Start Date: 07/11/14 Status: Ordered Saw [place] oral capsule 450 mg, Oral, BID, 0 [...] pain, # 100 g, 0 Refill(s), Pharmacy: [facility] Start Date: 04/04/15 Status: Ordered [...] Released: 05/29/2001 Document Revised: 02/01/2014 Document Reviewed: [facility] Patient Information 2014 [employer]. No follow up information was provided. Extracted from: Title: Office Visit Note Author: Ismael Shine MD Date: 10/20/14 Assessment/Plan Dysphagia Ordered: Office Visit Level 4 New [address]2950 Family history of esophageal cancer Ordered: Office Visit Level 4 New [address]2939 Plan: EGD possible dilatation. Hemoccult cards. If [...]
--- OUTSIDE RECORDS SUMMARY | 2016-09-23 09:27 | XMS REPORT | Referral Summary ---
Author Author [facility] Organization [facility] Address Unknown Phone Unavailable Care Team Providers Care County Director Name Role Phone Maliha Gallegos Primary Care Physician [phone] Encounter VC Date(s): 01/22/16 - 01/22/16 [facility], [address] [place] [id number] Discharge Disposition: 01-Home or Self Care Attending Physician: Leobardo Gallegos MD Admitting Physician: Leobardo Gallegos MD Vital Signs Most recent to 1 oldest [Reference Range]: Peripheral Pulse 76 bpm Rate [60-100 bpm] (01/22/16 3:22 PM) Respiratory Rate 16 br/min [14-20 br/min] (01/22/16 3:22 PM) Blood Pressure 128/78 mmHg [90-140/60-90 mmHg] (01/22/16 3:22 PM) Problem List Condition Effective Dates Status Health [...] tabs Oral Daily, # 90 tabs, eRx: [facility], 1 tabs Oral Daily Start Date: 09/17/15 Status: Ordered Co-Q10 200 mg oral capsule 1 caps, Oral, Daily, # 30 caps, 0 Refill(s) Start Date: 11/18/13 Status: Ordered famotidine 40 mg oral tablet 40 mg 1 tabs, Oral, Bedtime (once a day), # 30 tabs, 5 Refill(s), Pharmacy: [facility], 1 tabs Oral Bedtime (once a day) Start Date: 07/12/15 Status: Ordered Fish Oil 1200 mg oral capsule 2 caps, Oral, BID, 0 Refill(s) Start Date: 07/11/14 Status: Ordered Flonase 50 mcg/inh nasal spray 2 sprays, Nasal, Daily, as needed for allergies, # 3 Each, 11 Refill(s), Pharmacy: [facility] Start Date: 10/31/15 Status: Ordered gabapentin 300 mg oral capsule See Instructions, TAKE 1 CAPSULE BY MOUTH DAILY AT BEDTIME, # 90 caps, eRx: [facility], TAKE 1 CAPSULE BY MOUTH DAILY AT BEDTIME Start Date: 12/11/15 Status: Ordered Glucosamine & Chondroitin with MSM tabs, Oral, BID, 0 Refill(s) Start Date: 11/18/13 Status: Ordered Livalo 4 mg oral tablet See Instructions, TAKE 1 TABLET BY MOUTH DAILY, # 90 tabs, 3 Refill(s), eRx: [facility], TAKE 1 TABLET BY MOUTH DAILY Start Date: 11/14/15 Status: Ordered losartan 50 mg oral tablet See Instructions, TAKE 1 TABLET BY MOUTH DAILY, # 90 tabs, eRx: [facility], TAKE 1 TABLET BY MOUTH DAILY Start Date: 12/11/15 Status: Ordered multivitamin 1 tabs, Oral, Daily, [...] to exceed... Start Date: 07/11/14 Status: Ordered [place] 5 mg-325 mg oral tablet 1 tabs, Oral, q6hr, as needed for pain, 0 Refill(s) Start Date: 10/31/15 Status: Ordered Robaxin-750 oral tablet 750 mg 1 tabs, Oral, TID, as needed for pain, 0 Refill(s) Start Date: 10/31/15 Status: Ordered Saw [place] oral capsule 450 mg, Oral, BID, 0 [...] Procedures Procedure Date Related Diagnosis Body Site Left L4-5/L5-S1 Transferaminal 12/12/15 Bilateral L5-S1 Transforaminal 10/02/15 Right T10-11/T11-12 Facet 03/26/15 Colonoscopy normal1 11/20/14 [...] Patient Education Author: Leobardo Gallegos MD Date: Family Medicine Cervical Fusion The neck is the upper portion of your spine. The 7 bones in your neck are referred to as the cervical spine. Cervical fusion is a type of surgery that is done on the cervical spine to relieve pressure on the spinal cord or one or more nerve roots. There are two types of cervical fusion: Anterior cervical fusion. This surgery is done through the front ( anterior) part of your neck. During the surgery the affected intervertebral disk is removed to take pressure off the nerves or spinal cord. The area where the disc was removed is filled with a bone graft that causes the vertebral bodies to grow together (fuse) over time. Posterior cervical fusion. This surgery is done through the back ( posterior) of the neck. The surgery joins two or more neck vertebrae into one solid section of bone. Posterior cervical fusion is most commonly used to treat neck fractures and dislocations and to fix deformities in the curve of the neck. LET YOUR HEALTH CARE PROVIDER KNOW ABOUT: Any allergies you have. All medicines you are taking, including vitamins, herbs, eyedrops, creams , and lmzf-jit-sjbuzzc medicines. Previous problems you or members of your family have had with the use of anesthetics. Any blood disorders or blood clotting problems you have. Previous surgeries you have had. Medical conditions you have. RISKS AND COMPLICATIONS Generally, this is a safe procedure. However, as with any procedure, problems can occur. Possible problems include: Infection. Bleeding with possible need for blood transfusion. Injury to surrounding structures, including nerves. Leakage of cerebrospinal fluid. Blood clots. Temporary breathing difficulties after surgery. Extended hospital stay, especially with posterior cervical fusion. BEFORE THE PROCEDURE Do not eat or drink for 68 hours before the procedure. Take medicines as directed by your surgeon. Ask your surgeon about changing or stopping your regular medicines. You will be given antibiotic medicines to keep the infection rate down. The surgical cut (incision) site on your neck will be marked. Your neck will be cleaned to reduce the risk of infection. PROCEDURE The length of the procedure depends on what needs to be done. It usually takes 2 or more hours. For both procedures, you will be given medicine to make you sleep (general anesthetic). A breathing tube will be placed down your throat. Anterior Cervical Fusion An incision will usually be made in a skin fold line at the front of your neck, in the area where the fusion will be placed. The neck muscles will be pushed aside. The surgeon will remove the affected, degenerated disk and bone spurs ( decompression). This helps to take the pressure off the nerves and spinal cord. The area where the disk was removed is then filled with a plastic spacer implant, bone graft, or both. These implants and bone grafts take the place of the disk and keep the nerve passageway open and clear for the nerves and spinal cord. In most cases, the surgeon will put metal plates, pins, or screws ( hardware) in the neck to help stabilize the surgical site and to keep the implants and bone grafts in place. The hardware reduces motion at the surgical site, so the bones can grow together. This provides extra support to the neck. Posterior Cervical Fusion An incision will be made through the back of the neck. Two or more neck vertebrae will be joined into one solid section of bone. Metal plates and pins or screws may be placed in the neck. These help stabilize the neck, providing extra support to help the bones to grow together more easily. AFTER THE PROCEDURE You will stay in a recovery area until the anesthesia has worn off. Your blood pressure and pulse will be checked often. You may continue to receive fluids and medicines, such as antibiotics, through the IV tube for several days after the surgery. You may need to wear a neck or back brace for several weeks after surgery , especially when up and out of bed. You may be given pain medicine while still in the recovery area. Some pain is normal, but if your pain gets worse, tell your surgeon or nurse. Be up and moving as soon as possible after surgery. Physical therapists will help you start walking. To prevent blood clots in your legs: You may be given compression stockings to wear. You may need to take medicine to prevent clots. You may be asked to do breathing exercises. This is to prevent a lung infection. Most people stay in the hospital for 13 days after this surgery. This information is not intended to replace advice given to you by your health care provider. Make sure you discuss any questions you have with your health care provider. Document Released: 11/21/2002 Document Revised: 06/06/2014 Document Reviewed: [facility] Patient Information 2016 [employer]. No follow up information was provided. Extracted from: Title: cervical disc Author: Leobardo Gallegos MD Date: 01/22/16 herniation--post op Impression and Plan Diagnosis Herniated cervical intervertebral disc (DGQ71-GH M50.12, Working, Medical). Coronary arteriosclerosis (disorder) (MRX22-BG I25.10, Working, Medical). Left cervical radiculopathy ([id number]-TP M54.12, Working, Medical). Plan: 1) Continue your present meds, although I have no problem with you discontinuing Citalopram as you want to do. 2) May use heat to your neck muscles as needed. 3) May use OTC topical arthritis creams as needed to your neck muscles. 4) You should get your dental work (broken filling) done when you feel up to it, to prevent infections.. Orders Orders (Selected) Outpatient Orders Ordered Office Visit Level 4 Est 50255: Discontinued Office Visit Level 3 Est 73368: . Dx/Order Association Plan: Diagnosis: Coronary arteriosclerosis (disorder) Comment: Ordered: Office Visit Level 4 Est 24793; 01/22/16 17:20:00 CDT, Herniated cervical intervertebral disc | Left cervical radiculopathy | Coronary arteriosclerosis (disorder) Discontinued: Office Visit Level 3 Est 69141; 01/22/16 17:16:00 CDT, Herniated cervical intervertebral disc | Left cervical radiculopathy | Coronary arteriosclerosis (disorder) Diagnosis: Herniated cervical intervertebral disc Comment: Ordered: Office Visit Level 4 Est 19974; 01/22/16 17:20:00 CDT, Herniated cervical intervertebral disc | Left cervical radiculopathy | Coronary arteriosclerosis (disorder) Discontinued: Office Visit Level 3 Est 20248; 01/22/16 17:16:00 CDT, Herniated cervical intervertebral disc | Left cervical radiculopathy | Coronary arteriosclerosis (disorder) Diagnosis: Left cervical radiculopathy Comment: Ordered: Office Visit Level 4 Est 97617; 01/22/16 17:20:00 CDT, Herniated cervical intervertebral disc | Left cervical radiculopathy | Coronary arteriosclerosis (disorder) Discontinued: Office Visit Level 3 Est 28684; 01/22/16 17:16:00 CDT, Herniated cervical intervertebral disc | Left cervical radiculopathy | Coronary arteriosclerosis (disorder) End of Orders ."
--- OUTSIDE RECORDS SUMMARY | 2016-09-23 09:27 | XMS REPORT | Referral Summary ---
Author Author [facility] Organization [facility] Address Unknown Phone Unavailable Care Team Providers Care Claim Inspector Name Role Phone Maliha Gallegos Primary Care Physician [phone] Encounter Date(s): 04/28/16 - 04/28/16 [facility], [address] [place] [address] Discharge Diagnosis: Essential hypertension (disorder) Discharge Diagnosis: Oral phase dysphagia Discharge Diagnosis: Coronary arteriosclerosis (disorder) Discharge Diagnosis: Acute chest pain Discharge Diagnosis: Left lumbar radiculopathy Discharge Diagnosis: Esophagitis Discharge Diagnosis: Herniated lumbar intervertebral disc Discharge Disposition: 01-Home or Self Care Attending Physician: Leobardo Gallegos MD Admitting Physician: Leobardo Gallegos MD Vital Signs Most recent to 1 oldest [Reference Range]: Temperature Tympanic 36.2 degC [36.6-38.1 degC] *LOW* (04/28/16 8:20 AM) Peripheral Pulse 52 bpm Rate [60-100 bpm] *LOW* (04/28/16 8:20 AM) Respiratory Rate 14 br/min [14-20 br/min] (04/28/16 8:20 AM) Blood Pressure 114/66 mmHg [90-140/60-90 mmHg] (04/28/16 8:20 AM) Problem List Condition Effective Dates Status [...] clopidogrel 75 mg oral tablet See Instructions, TAKE 1 TABLET BY MOUTH DAILY, # 90 tabs, 1 Refill(s), eRx: [facility], TAKE 1 TABLET BY MOUTH DAILY Start Date: 04/23/16 Status: Ordered Co-Q10 200 mg oral capsule 1 caps, Oral, Daily, # 30 caps, 0 Refill(s) Start Date: 11/18/13 Status: Ordered Flonase 50 mcg/inh nasal spray 2 sprays, Nasal, Daily, as needed for allergies, # 3 Each, 11 Refill(s), Pharmacy: [facility] Start Date: 10/31/15 Status: Ordered gabapentin 300 mg oral capsule See Instructions, TAKE 1 CAPSULE BY MOUTH DAILY AT BEDTIME, # 90 caps, eRx: [facility], TAKE 1 CAPSULE BY MOUTH DAILY AT BEDTIME Start Date: 12/11/15 Status: Ordered Glucosamine & Chondroitin with MSM tabs, Oral, BID, 0 Refill(s) Start Date: 11/18/13 Status: Ordered Livalo 4 mg oral tablet See Instructions, TAKE 1 TABLET BY MOUTH DAILY, # 90 tabs, 3 Refill(s), eRx: [facility], TAKE 1 TABLET BY MOUTH DAILY Start Date: 11/14/15 Status: Ordered losartan 50 mg oral tablet See Instructions, TAKE 1 TABLET BY MOUTH DAILY, # 90 tabs, eRx: [facility], TAKE 1 TABLET BY MOUTH DAILY Start Date: 12/11/15 Status: Ordered multivitamin 1 tabs, Oral, Daily, 0 Refill(s) Start Date: 11/13/13 Status: Ordered Nitrostat 0.4 mg sublingual tablet 1 tabs, SubLingual, q5min, as needed for chest pain, not to exceed 3 doses/15 min--if pain persists, seek medical attention, # 30 tabs, 11 Refill(s), Pharmacy : [facility], 1 tabs SubLingual q5min,PRN:as needed for chest pain,Instr: not to exceed... Start Date: 07/11/14 Status: Ordered pantoprazole 40 mg oral delayed release tablet 40 mg 1 tabs, Oral, Daily, # 30 tabs, 11 Refill(s), Pharmacy: [facility] , 1 tabs Oral Daily Start Date: 04/28/16 Status: Ordered Saw [place] oral capsule 450 mg, Oral, BID, 0 [...] Related Diagnosis Body Site Left L4-5/L5-S1 Transferaminal 6/29/16 Bilateral L5-S1 Transforaminal 10/02/15 Right T10-11/T11-12 Facet [...] Patient Education Author: Leobardo Gallegos MD Date: Preventive Medicine Back Exercises Back exercises help treat and prevent back injuries. The goal is to increase your strength in your belly (abdominal) and back muscles. These exercises can also help with flexibility. Start these exercises when told by your doctor. HOME CARE Back exercises include: Pelvic Tilt. Lie on your back with your knees bent. Tilt your pelvis until the lower part of your back is against the floor. Hold this position 5 to 10 sec. Repeat this exercise 5 to 10 times. Knee to Chest. Pull 1 knee up against your chest and hold for 20 to 30 seconds. Repeat this with the other knee. This may be done with the other leg straight or bent, whichever feels better. Then, pull both knees up against your chest. Sit-Ups or Curl-Ups. Bend your knees 90 degrees. Start with tilting your pelvis, and do a partial, slow sit-up. Only lift your upper half 30 to 45 degrees off the floor. Take at least 2 to 3 seonds for each sit-up. Do not do sit-ups with your knees out straight. If partial sit-ups are difficult, simply do the above but with only tightening your belly (abdominal) muscles and holding it as told. Hip-Lift. Lie on your back with your knees flexed 90 degrees. Push down with your feet and shoulders as you raise your hips 2 inches off the floor. Hold for 10 seconds, repeat 5 to 10 times. Back Arches. Lie on your stomach. Prop yourself up on bent elbows. Slowly press on your hands, causing an arch in your low back. Repeat 3 to 5 times. Shoulder-Lifts. Lie face down with arms beside your body. Keep hips and belly pressed to floor as you slowly lift your head and shoulders off the floor. Do not overdo your exercises. Be careful in the beginning. Exercises may cause you some mild back discomfort. If the pain lasts for more than 15 minutes, stop the exercises until you see your doctor. Improvement with exercise for back problems is slow. This information is not intended to replace advice given to you by your health care provider. Make sure you discuss any questions you have with your health care provider. Document Released: 07/04/2011 Document Revised: 08/23/2012 Document Reviewed: [employer] Patient Education 2016 [employer] No follow up information was provided. Extracted from: Title: multiple problems Author: Leobardo Gallegos MD Date: 04/28/16 Impression and Plan Diagnosis Acute chest pain (FGM02-RD R07.9, Discharge, Medical). Coronary arteriosclerosis (disorder) (JPI08-IC I25.10, Discharge, Medical). Esophagitis (JUH23-SG K20.8, Discharge, Medical). Essential hypertension (disorder) (XYX53-DC I10, Discharge, Medical). Herniated lumbar intervertebral disc (SRF19-LL M51.26, Discharge, Medical). Left lumbar radiculopathy (EUZ57-KT M54.16, Discharge, Medical). Oral phase dysphagia (KTM09-LT R13.11, Discharge, Medical). Plan: 1) Stop the fish oil. 2) Wean off the Robaxin and Nipton within one week. 3) Stop Famotidine. 4) Start Pantoprazole daily. 5) See your heel curver about your ongoing chest pains. 6) See me back in about one month. 7) Let me know if you are not almost entirely better within one week, in which case you will need more esophageal evaluation. 8) Continue your routine meds otherwise. 9) You refused the flu shot. 10) See Dr. Sevilla for your herniated lumbar disc and chronic low back pain and left sciatica. . Orders Orders (Selected) Outpatient Orders Ordered Office Visit Level 5 Est 71464: Discontinued Office Visit Level 4 Est 60413: Prescriptions Prescribed pantoprazole 40 mg oral delayed release tablet: 40 mg=1 tabs, Oral, Daily, 30 tabs, 11 Refill(s). Dx/Order Association Plan: Diagnosis: Acute chest pain Comment: Ordered: Office Visit Level 5 Est 92414; 04/28/16 19:06:00 SENIOR MARKETING DATA ANALYST, Acute chest pain | Coronary arteriosclerosis (disorder) | Esophagitis | Herniated lumbar intervertebral disc | Left lumbar radiculopathy | Essential hypertension (disorder) | Oral phase dysphagia Discontinued: Office Visit Level 4 Est 11029; 04/28/16 8:10:00 SENIOR MARKETING DATA ANALYST , Acute chest pain | Esophagitis | Oral phase dysphagia | Coronary arteriosclerosis (disorder) | Essential hypertension (disorder) | Herniated lumbar intervertebral disc | Left lumbar radiculopathy Diagnosis: Coronary arteriosclerosis (disorder) Comment: Ordered: Office Visit Level 5 Est 96504; 04/28/16 19:06:00 SENIOR MARKETING DATA ANALYST, Acute chest pain | Coronary arteriosclerosis (disorder) | Esophagitis | Herniated lumbar intervertebral disc | Left lumbar radiculopathy | Essential hypertension (disorder) | Oral phase dysphagia Discontinued: Office Visit Level 4 Est 12808; 04/28/16 8:10:00 SENIOR MARKETING DATA ANALYST , Acute chest pain | Esophagitis | Oral phase dysphagia | Coronary arteriosclerosis (disorder) | Essential hypertension (disorder) | Herniated lumbar intervertebral disc | Left lumbar radiculopathy Diagnosis: Esophagitis Comment: Ordered: Office Visit Level 5 Est 13485; 04/28/16 19:06:00 SENIOR MARKETING DATA ANALYST, Acute chest pain | Coronary arteriosclerosis (disorder) | Esophagitis | Herniated lumbar intervertebral disc | Left lumbar radiculopathy | Essential hypertension (disorder) | Oral phase dysphagia Discontinued: Office Visit Level 4 Est 43600; 04/28/16 8:10:00 SENIOR MARKETING DATA ANALYST , Acute chest pain | Esophagitis | Oral phase dysphagia | Coronary arteriosclerosis (disorder) | Essential hypertension (disorder) | Herniated lumbar intervertebral disc | Left lumbar radiculopathy Diagnosis: Essential hypertension (disorder) Comment: Ordered: Office Visit Level 5 Est 30662; 04/28/16 19:06:00 SENIOR MARKETING DATA ANALYST, Acute chest pain | Coronary arteriosclerosis (disorder) | Esophagitis | Herniated lumbar intervertebral disc | Left lumbar radiculopathy | Essential hypertension (disorder) | Oral phase dysphagia Discontinued: Office Visit Level 4 Est 14810; 04/28/16 8:10:00 SENIOR MARKETING DATA ANALYST , Acute chest pain | Esophagitis | Oral phase dysphagia | Coronary arteriosclerosis (disorder) | Essential hypertension (disorder) | Herniated lumbar intervertebral disc | Left lumbar radiculopathy Diagnosis: Herniated lumbar intervertebral disc Comment: Ordered: Office Visit Level 5 Est 93272; 04/28/16 19:06:00 SENIOR MARKETING DATA ANALYST, Acute chest pain | Coronary arteriosclerosis (disorder) | Esophagitis | Herniated lumbar intervertebral disc | Left lumbar radiculopathy | Essential hypertension (disorder) | Oral phase dysphagia Discontinued: Office Visit Level 4 Est 53863; 04/28/16 8:10:00 SENIOR MARKETING DATA ANALYST , Acute chest pain | Esophagitis | Oral phase dysphagia | Coronary arteriosclerosis (disorder) | Essential hypertension (disorder) | Herniated lumbar intervertebral disc | Left lumbar radiculopathy Diagnosis: Left lumbar radiculopathy Comment: Ordered: Office Visit Level 5 Est 64852; 04/28/16 19:06:00 SENIOR MARKETING DATA ANALYST, Acute chest pain | Coronary arteriosclerosis (disorder) | Esophagitis | Herniated lumbar intervertebral disc | Left lumbar radiculopathy | Essential hypertension (disorder) | Oral phase dysphagia Discontinued: Office Visit Level 4 Est 89491; 04/28/16 8:10:00 SENIOR MARKETING DATA ANALYST , Acute chest pain | Esophagitis | Oral phase dysphagia | Coronary arteriosclerosis (disorder) | Essential hypertension (disorder) | Herniated lumbar intervertebral disc | Left lumbar radiculopathy Diagnosis: Oral phase dysphagia Comment: Ordered: Office Visit Level 5 Est 60187; 04/28/16 19:06:00 SENIOR MARKETING DATA ANALYST, Acute chest pain | Coronary arteriosclerosis (disorder) | Esophagitis | Herniated lumbar intervertebral disc | Left lumbar radiculopathy | Essential hypertension (disorder) | Oral phase dysphagia Discontinued: Office Visit Level 4 Est 76238; 04/28/16 8:10:00 SENIOR MARKETING DATA ANALYST , Acute chest pain | Esophagitis | Oral phase dysphagia | Coronary arteriosclerosis (disorder) | Essential hypertension (disorder) | Herniated lumbar intervertebral disc | Left lumbar radiculopathy Additional Orders: Comment: Discontinued: Nipton 5 mg-325 mg oral tablet,1 tabs, Oral, Bedtime ( once a day), 0 Refill(s) Discontinued: Robaxin-750 oral tablet,750 mg 1 tabs, Oral, Bedtime (once a day), 0 Refill(s) Ordered: pantoprazole 40 mg oral delayed release tablet,40 mg 1 tabs, Oral, Daily, # 30 tabs, 11 Refill(s), Pharmacy: [facility], 1 tabs Oral Daily End of Orders ."
--- OUTSIDE RECORDS SUMMARY | 2016-09-23 09:27 | XMS REPORT | Referral Summary ---
Author Author [facility] Organization [facility] Address Unknown Phone Unavailable Care Team Providers Care Bandage Maker Name Role Phone Maliha Gallegos Primary Care Physician [phone] Encounter Date(s): 03/12/15 - 03/12/15 [facility] [address] [place], [place] [address] Discharge Diagnosis: Lumbar spondylosis Discharge Diagnosis: Hip [...] tabs Oral Daily, # 90 tabs, eRx: [facility], 1 tabs Oral Daily Start [...] # 3 Each, 3 Refill(s), Pharmacy : [facility] Start Date: 07/11/14 Status: Ordered [...] exceed... Start Date: 07/11/14 Status: Ordered Saw [place] oral capsule 450 mg, Oral, BID, 0 [...] pain, # 100 g, 0 Refill(s), Pharmacy: [facility] Start Date: 04/04/15 Status: Ordered [...]
--- OUTSIDE RECORDS SUMMARY | 2016-09-23 09:27 | XMS REPORT | Referral Summary ---
Author Author [facility] Organization [facility] Address Unknown Phone Unavailable Care Team Providers Care Hand Molder Meat Name Role Phone Maliha Gallegos Primary Care Physician [phone] Encounter [facility] [id number] Date(s): 11/28/14 - 11/28/14 [facility] [address] [place], [place] [address] Discharge Diagnosis: Hip pain Discharge Diagnosis: Spondylosis, [...] Daily, # 90 tabs, 3 Refill(s), Pharmacy: [facility], 1 tabs Oral Daily,x90 days Start Date: 07/11/14 Stop Date: 07/06/15 Status: Ordered cholestyramine 4 g/5 g oral powder for reconstitution 1 packets, Oral, Daily, dissolve in 6 to 8 ounces of water; may increase to 2-3 packets in water daily;, # 60 Each, 11 Refill(s), Pharmacy: [facility], 1 packets Oral Daily,Instr:dissolve in 6 to 8 ounces of water; may increase to 2 -3 packets i... Start Date: 11/18/13 Status: Ordered citalopram 20 mg oral tablet 10 mg 0.5 tabs, Oral, Daily, # 45 tabs, 0 Refill(s), Pharmacy: [facility] , 0.5 tabs Oral Daily Start Date: 06/01/15 Status: Ordered clopidogrel 75 mg oral tablet 75 mg 1 tabs, Oral, Daily, # 90 tabs, 0 Refill(s), Pharmacy: [facility], 1 tabs Oral Daily Start Date: 06/01/15 Status: Ordered Co-Q10 200 mg oral capsule 1 caps, Oral, Daily, # 30 caps, 0 Refill(s) Start Date: 11/18/13 Status: Ordered Fish Oil 1200 mg oral capsule 2 caps, Oral, BID, 0 Refill(s) Start Date: 07/11/14 Status: Ordered Flonase 50 mcg/inh nasal spray 2 sprays, Nasal, Daily, as needed for allergies, # 3 Each, 3 Refill(s), Pharmacy : [facility] Start Date: 07/11/14 Status: Ordered gabapentin 300 mg oral capsule 300 mg 1 caps, Oral, Bedtime (once a day), # 90 caps, 0 Refill(s), Pharmacy: [facility], 1 caps Oral Bedtime (once a day) Start Date: 06/01/15 Status: Ordered Glucosamine & Chondroitin with MSM tabs, Oral, BID, 0 Refill(s) Start Date: 11/18/13 Status: Ordered Livalo 4 mg oral tablet 4 mg 1 tabs, Oral, Daily, # 90 tabs, 0 Refill(s), Pharmacy: [facility], 1 tabs Oral Daily Start Date: 06/01/15 Status: Ordered losartan 50 mg oral tablet 50 mg 1 tabs, Oral, Daily, # 90 tabs, 0 Refill(s), Pharmacy: [facility], 1 tabs Oral Daily Start Date: 06/01/15 Status: Ordered multivitamin 1 tabs, Oral, Daily, 0 Refill(s) Start Date: 11/13/13 Status: Ordered Nitrostat 0.4 mg sublingual tablet 1 tabs, SubLingual, q5min, as needed for chest pain, not to exceed 3 doses/15 min--if pain persists, seek medical attention, # 30 tabs, 11 Refill(s), Pharmacy : [facility], 1 tabs SubLingual q5min,PRN:as needed for chest pain,Instr: not to exceed... Start Date: 07/11/14 Status: Ordered Saw [place] oral capsule 450 mg, Oral, BID, 0 [...] pain, # 100 g, 0 Refill(s), Pharmacy: [facility] Start Date: 04/04/15 Status: Ordered Results [...] Title: Office Visit Note Author: Rhonda Blandon FIRST LINE PRODUCTION SUPERVISOR Date: 11/28/14 Assessment/Plan Hip pain Lumbar disc [...]
--- OUTSIDE RECORDS SUMMARY | 2016-09-23 09:27 | XMS REPORT | Referral Summary ---
Author Author [facility] Organization [facility] Address Unknown Phone Unavailable Care Team Providers Care Personnel Clerks Supervisor Name Role Phone Maliha Gallegos Primary Care Physician [phone] Encounter [facility] Date(s): 04/04/15 - 04/04/15 [facility] [address] [place], [place] [address] Discharge Diagnosis: Primary osteoarthritis of right hip Discharge Disposition: 01-Home or Self Care Attending Physician: Javier Staples MD Admitting Physician: Javier Staples MD Vital Signs Most recent to 1 oldest [Reference Range]: Temperature Oral 36.8 degC [35.8-37.3 degC] (04/04/15 10:03 AM) Problem List Condition Effective Dates Status [...] Daily, # 90 tabs, 3 Refill(s), Pharmacy: [facility], 1 tabs Oral Daily,x90 days Start Date: 07/11/14 Stop Date: 07/06/15 Status: Ordered cholestyramine 4 g/5 g oral powder for reconstitution 1 packets, Oral, Daily, dissolve in 6 to 8 ounces of water; may increase to 2-3 packets in water daily;, # 60 Each, 11 Refill(s), Pharmacy: [facility], 1 packets Oral Daily,Instr:dissolve in 6 to 8 ounces of water; may increase to 2 -3 packets i... Start Date: 11/18/13 Status: Ordered citalopram 20 mg oral tablet 10 mg 0.5 tabs, Oral, Daily, PT. NEEDS A CPE AND LABS DONE., # 45 tabs, 0 Refill (s), Pharmacy: [facility], 0.5 tabs Oral Daily,Instr:PT. NEEDS A CPE AND LABS DONE. Start Date: 10/10/15 Status: Ordered clopidogrel 75 mg oral tablet See Instructions, 1 tabs Oral Daily, # 90 tabs, eRx: [facility], 1 tabs Oral Daily Start Date: 09/17/15 Status: Ordered Co-Q10 200 mg oral capsule 1 caps, Oral, Daily, # 30 caps, 0 Refill(s) Start Date: 11/18/13 Status: Ordered famotidine 40 mg oral tablet 40 mg 1 tabs, Oral, Bedtime (once a day), # 30 tabs, 5 Refill(s), Pharmacy: [facility], 1 tabs Oral Bedtime (once a [...] day), # 90 caps, 0 Refill(s), Pharmacy: [facility], 1 caps Oral Bedtime (once a day) Start Date: 09/10/15 Status: Ordered Glucosamine & Chondroitin with MSM tabs, Oral, BID, 0 Refill(s) Start Date: 11/18/13 Status: Ordered Livalo 4 mg oral tablet 4 mg 1 tabs, Oral, Daily, PT. IS DUE FOR LABS., # 90 tabs, 0 Refill(s), Pharmacy : [facility], 1 tabs Oral Daily,Instr:PT. IS DUE FOR LABS. Start Date: 09/10/15 Status: Ordered losartan 50 mg oral tablet 50 mg 1 tabs, Oral, Daily, PT. IS DUE FOR LABS., # 90 tabs, 0 Refill(s), Pharmacy: [facility], 1 tabs Oral Daily,Instr:PT. IS DUE FOR LABS. Start Date: 09/10/15 Status: Ordered multivitamin 1 tabs, Oral, Daily, 0 Refill(s) Start Date: 11/13/13 Status: Ordered Nitrostat 0.4 mg sublingual tablet 1 tabs, SubLingual, q5min, as needed for chest pain, not to exceed 3 doses/15 min--if pain persists, seek medical attention, # 30 tabs, 11 Refill(s), Pharmacy : [facility], 1 tabs SubLingual q5min,PRN:as needed for chest pain,Instr: not to exceed... Start Date: 07/11/14 Status: Ordered Saw [place] oral capsule 450 mg, Oral, BID, 0 [...] Procedures Procedure Date Related Diagnosis Body Site Bilateral L5-S1 Transforaminal 10/02/15 Right T10-11/T11-12 Facet [...] Extracted from: Title: Office Visit Note Author: Javier Staples MD Date: 04/04/15 Assessment/Plan Primary osteoarthritis of right hip 60-year-old male with right hip arthritisand a possible labral tear. He also has significant degenerative disc diseaseand sciatica. I lengthy discussion with the patient and his in regards to the condition of his hip and possible treatment options. His arthritis doesn't seem to be too bad on his x-ray,but he does have some cystic change on his MRI scan. I told the patient, that in my opinion, his pain is coming more from arthritis than from a labral tear. I do not think he probably gain much by doing a hip arthroscopy and labral excision/repair, but if he wants to pursue this, then I would refer him to one of the other orthopedic surgeons in [facility] who does more of this. It is my opinion thathe would have to have a hip replacement to improve his hip function much. He also has considerable pain referred from his back as well as sciaticawhich a hip replacement may help to some degree or may exacerbate. I gave him a booklet on hip replacement surgery as well as one on arthritis. I offered to try another steroid injection in the hip but he did not want to do this. We decided to try some Voltaren gel to see how much this might help. He is to let me know if he would like to pursue any other treatment options. Ordered: diclofenac topical, 2 g, Topical, QID, as needed for pain, # 100 g, 0 Refill(s) , Pharmacy: [facility] Office Visit Level 3 New [id number]
--- OUTSIDE RECORDS SUMMARY | 2016-09-23 09:27 | XMS REPORT | Referral Summary ---
Author Organization Unknown Address Unknown Phone Unavailable Care Team Providers Care Senior Hr Generalist Name Role Phone Maliha Gallegos Primary Care Physician [phone] Encounter VC Date(s): 08/25/14 - 08/25/14 [facility] [address] [place], [place] [address] Discharge Diagnosis: Disc degeneration, lumbar Discharge Diagnosis: Lumbar radiculopathy Discharge Diagnosis: Thoracic spondylosis Discharge Diagnosis: Mid back pain Discharge Diagnosis: Chronic low back pain Discharge Diagnosis: Lumbar disc herniation Discharge Diagnosis: Lumbar spondylosis Discharge Disposition: Home or Self Care Attending Physician: Tona Bosch Admitting Physician: Tona Bosch Referring Physician: Leobardo Gallegos MD Vital Signs Most recent to 1 oldest [Reference Range]: Temperature Oral 36.7 degC [35.8-37.3 degC] (08/25/14 8:45 AM) Blood Pressure 126/78 mmHg [90-140/60-90 mmHg] (08/25/14 8:45 AM) Problem List Condition Effective Dates Status [...] Tension Active headache(Confirmed) Mid back Active pain(Confirmed) Chicken Active pox(Confirmed) 1Hospitalized. Allergies, Adverse Reactions, Alerts Substance Reaction Severity Status lisinopril cough Active lovastatin hands puffy and very stiff Active simvastatin myalgias Active Medications amLODIPine 2.5 mg oral tablet 1 tabs, Oral, Daily, # 90 tabs, 3 Refill(s), Pharmacy: [facility], 1 tabs Oral Daily,x90 days Start Date: 07/11/14 Stop Date: 07/06/15 Status: Ordered cholestyramine 4 g/5 g oral powder for reconstitution 1 packets, Oral, Daily, dissolve in 6 to 8 ounces of water; may increase to 2-3 packets in water daily;, # 60 Each, 11 Refill(s), Pharmacy: [facility], 1 packets Oral Daily,Instr:dissolve in 6 to 8 ounces of water; may increase to 2 -3 packets i... Special Instructions: dissolve in 6 to 8 ounces of water; may increase to 2-3 packets in water daily; Start Date: 11/18/13 Status: Ordered citalopram 20 mg oral tablet 0.5 tabs, Oral, Daily, X 90 days, # 45 tabs, 3 Refill(s), Pharmacy: [facility], Instruct patient to schedule a complete physical with Dr. Gallegos, 0.5 tabs Oral Daily,x90 days Start Date: 07/11/14 Stop Date: 07/06/15 Status: Ordered clopidogrel 75 mg oral tablet 1 tabs, Oral, Daily, # 90 tabs, 3 Refill(s), Pharmacy: [facility], 1 tabs Oral Daily,x90 days [...] 3 Each, 3 Refill(s), Pharmacy : [facility] Start Date: 07/11/14 Status: Ordered gabapentin 300 mg oral capsule 1 caps, Oral, Bedtime (once a day), # 90 caps, 3 Refill(s), Pharmacy: [facility], instruct patient to schedule a complete physical with Dr. Gallegos., 1 caps Oral Bedtime (once a day),x90 days Start Date: 07/11/14 Stop Date: 07/06/15 Status: Ordered Glucosamine & Chondroitin with MSM tabs, Oral, BID, 0 Refill(s) Start Date: 11/18/13 Status: Ordered Livalo 4 mg oral tablet 1 tabs, Oral, Daily, # 90 tabs, 3 Refill(s), Pharmacy: [facility], Instruct patient to schedule a complete physical with Dr. Gallegos, 1 tabs Oral Daily,x90 days Start Date: 07/11/14 Stop Date: 07/06/15 Status: Ordered losartan 50 mg oral tablet 1 tabs, Oral, Daily, # 90 tabs, 3 Refill(s), Pharmacy: [facility], instruct patient to schedule a complete [...] # 30 tabs, 11 Refill(s), Pharmacy : [facility], 1 tabs SubLingual q5min,PRN:as needed for chest pain,Instr: not to exceed... Special Instructions: not to exceed 3 doses/15 min--if pain persists, seek medical attention Start Date: 07/11/14 Status: Ordered Saw [place] oral capsule 450 mg, Oral, BID, 0 [...] Extracted from: Title: Office Visit Note Author: Tona Bosch Date: 08/25/14 Assessment/Plan Chronic low back pain Disc degeneration, lumbar Lumbar disc herniation Lumbar radiculopathy Lumbar spondylosis Mid back pain Thoracic spondylosis Dr. Siu and I discussed with the patient his investigations and I have provided him copies of these reports andalso review them with the spinal model with him. Clinically thoracic pain complaints seems he mainly related to facet arthropathy in the mid lower thoracic facet joints on the right. He also seems symptomatic with lower back pain radiculopathy with L5-S1 showing mild to moderate disc herniation and some mild foraminal narrowing.Mild central stenosis at L4 5. He has been to 9 sessions of physical therapy. He is tried some nznq-wez-evqqvdd analgesics. He would like to consider injection treatments. Dr. Siu recommend scheduling him for right mid to lower thoracic facet joint injection followed by a L5-S1 translaminar epidural. He was explained the rationale for the procedures possible complications including those of bleeding infection allergic reaction to medication nerve irritation or damage risk of spinal headache. Other remote possible complications including paraplegia quadriplegia stroke seizure. He voiced understanding wishes to proceed. He is on Plavix and Dr. Siu has told him he can stay on his Plavix for the facet injection but he would need to hold it for 5 days prior to his epidural. We'll call for prior approval. He understands there is risk involved holding his Plavix. He will follow-up here in 2 months following his injections assuming he improves. He'll follow-up sooner if needed. He has no myelopathic signs and clinically there is no surgical indication at this time. He will follow-up sooner if needed. He voiced understanding and agrees to the above plans. Physical exam findings history present illness recommendations are performed with an agreement with Dr. Riley findings.
--- OUTSIDE RECORDS SUMMARY | 2016-09-23 09:28 | XMS REPORT | Referral Summary ---
Author Author [facility] Organization [facility] Address Unknown Phone Unavailable Care Team Providers Care Engineering Administrator Name Role Phone Maliha Gallegos Primary Care Physician [phone] Encounter Date(s): 01/24/15 - 01/24/15 [facility] [address] [place], [place] [address] [place] Discharge Diagnosis: Lumbar spondylosis Discharge Diagnosis: Lumbar pain Discharge Disposition: 01-Home or Self Care Attending Physician: Lui Siu MD Admitting Physician: Lui Siu MD Referring Physician: Leobardo Gallegos MD Vital Signs Most recent to 1 oldest [Reference Range]: Peripheral Pulse 57 bpm Rate [60-100 bpm] *LOW* (01/24/15 2:24 PM) Respiratory Rate 14 br/min [14-20 br/min] (01/24/15 2:24 PM) Blood Pressure 136/76 mmHg [90-140/60-90 mmHg] (01/24/15 2:24 PM) Problem List Condition Effective Dates Status Health Status Informant Labral tear of hip, Active degenerative(Confirm ed) Allergic rhinitis Active (disorder)(Confirmed ) Arthropathy Active (disorder)(Confirmed ) Cholelithiasis(Confi 2011 Active rmed)1 Phantom Heart Active pain(Confirmed) Chronic [...] Daily, # 90 tabs, 3 Refill(s), Pharmacy: [facility], 1 tabs Oral Daily,x90 days Start Date: 07/11/14 Stop Date: 07/06/15 Status: Ordered cholestyramine 4 g/5 g oral powder for reconstitution 1 packets, Oral, Daily, dissolve in 6 to 8 ounces of water; may increase to 2-3 packets in water daily;, # 60 Each, 11 Refill(s), Pharmacy: [facility], 1 packets Oral Daily,Instr:dissolve in 6 to 8 ounces of water; may increase to 2 -3 packets i... Start Date: 11/18/13 Status: Ordered citalopram 20 mg oral tablet 10 mg 0.5 tabs, Oral, Daily, # 45 tabs, 0 Refill(s), Pharmacy: [facility] , 0.5 tabs Oral Daily Start Date: 06/01/15 Status: Ordered clopidogrel 75 mg oral tablet 75 mg 1 tabs, Oral, Daily, # 90 tabs, 0 Refill(s), Pharmacy: [facility], 1 tabs Oral Daily Start Date: [...] # 3 Each, 3 Refill(s), Pharmacy : [facility] Start Date: 07/11/14 Status: Ordered [...] Daily, # 90 tabs, 0 Refill(s), Pharmacy: [facility], 1 tabs Oral Daily Start Date: 06/01/15 Status: Ordered losartan 50 mg oral tablet 50 mg 1 tabs, Oral, Daily, # 90 tabs, 0 Refill(s), Pharmacy: [facility], 1 tabs Oral Daily Start Date: 06/01/15 Status: Ordered multivitamin 1 tabs, Oral, Daily, 0 Refill(s) Start Date: 11/13/13 Status: Ordered Nitrostat 0.4 mg sublingual tablet 1 tabs, SubLingual, q5min, as needed for chest pain, not to exceed 3 doses/15 min--if pain persists, seek medical attention, # 30 tabs, 11 Refill(s), Pharmacy : [facility], 1 tabs SubLingual q5min,PRN:as needed for chest pain,Instr: not to exceed... Start Date: 07/11/14 Status: Ordered Saw [place] oral capsule 450 mg, Oral, BID, 0 [...] pain, # 100 g, 0 Refill(s), Pharmacy: [facility] Start Date: 04/04/15 Status: Ordered Results No data available for this section Immunizations Vaccine Date Refusal Reason hepatitis A-hepatitis B vaccine 03/30/13 hepatitis A-hepatitis B vaccine 09/28/12 hepatitis A-hepatitis B vaccine 07/30/12 influenza virus vaccine, live 06/30/13 pneumococcal 23-polyvalent vaccine 07/30/12 tetanus/diphtheria/pertussis, acel(Tdap) 06/25/11 zoster vaccine live 09/08/14 Procedures Procedure Date Related Diagnosis Body Site Right T10-11/T11-12 Facet 03/26/15 Injection(s), diagnostic or therapeutic 01/24/15 agent, paravertebral facet (zygapophyseal) joint (or nerves innervating that joint) with image guidance (fluoroscopy or CT), lumbar or sacral; single level.. Injection(s), diagnostic or therapeutic 01/24/15 agent, paravertebral facet (zygapophyseal) joint (or nerves innervating that joint) with image guidance (fluoroscopy or CT), lumbar or sacral; single level.. Injection(s), diagnostic or therapeutic 01/24/15 agent, paravertebral facet (zygapophyseal) joint (or nerves innervating that joint) with image guidance (fluoroscopy or CT), lumbar or sacral; single level.. Colonoscopy normal1 11/20/14 Esophagogastroduodenoscopy and biopsy2 11/20/14 L5-S1 Translaminar 09/19/14 Rigth Thoracic Mid-Level Facet 09/05/14 Excision of mucous cyst with local rotation 10/27/13 flat, LT MF Cardiac catheterization 08/01/11 Stent placement, cardiac 08/01/11 Angioplasty 2012 Cholecystectomy 2011 Percutaneous coronary intervention 2011 Angioplasty 01/2010 Percutaneous coronary intervention 2010 Stent placement 2009 CABG 03/2009 Colonoscopy3 06/22/07 [...]
--- OUTSIDE RECORDS SUMMARY | 2016-09-23 09:28 | XMS REPORT | Continuity of Care Document ---
Author Author [facility] Organization [facility] Address Unknown Phone Unavailable Allergies Active Description Code Type Severity Reaction Onset Reported/Identified Relationship to Patient Clinical Status Yes Wmvpypn-Vku-Wrs Reductase Inhibitors 524999 3 N/A N/A Yes No Known Allergies Drug Allergy 01/29/2012 Yes No Known Drug Allergies Drug Allergy 01/29/2012 Yes No Known Food Allergies Food Allergy 01/29/2012 Yes lisinopril NKMA N/A cough 10/12/2013 Yes lovastatin NKMA N/A hands puffy and very stiff 10/12/2013 Yes simvastatin NKMA N/A myalgias 10/12/2013 Yes SIMVASTATIN 42496 2 WEAKNESS 07/18/2015 Medications Medication Packaging Start [...] MORPHINE 4MG/1ML SYRINGE ML 01/10/2016 01/09/2017 IVP [id number] BISACODYL 10MG SUPPOS. SUP 01/10/2016 01/09/2017 MA* PRN PROMETHAZINE 25MG TABLET TAB 01/10/2016 01/09/2017 PO K1SIGAPR ONDANSETRON 4MG TABLET TAB 01/10/2016 01/09/2017 PO W9SCPFDA METOCLOPRAMIDE 10MG TABLET TAB 01/10/2016 01/09/2017 PO Y7IBDZVS LORazepam 0.5MG TABLET TAB 01/10/2016 01/09/2017 PO Q4HPRN HYDROcodone/ACETAMINOPHEN 7.5-325 MG TABLET TAB 01/10/2016 PO J4RSYSG BISACODYL 5MG TABLET TAB 01/10/2016 01/09/2017 PO PRN ACETAMINOPHEN 325MG TABLET TAB 01/10/2016 01/09/2017 PO Q4HPRN SODIUM CHLORIDE 0.9% 1000ML IV SOLN BAG 01/10/2016 01/11/2016 LVP 100ML/HR ONDANSETRON 4MG/2ML INJ VL 01/10/2016 01/09/2017 IVP [id number] PROMETHAZINE 25 MG/1ML INJ VL 01/10/2016 01/09/2017 IVP [id number] METOCLOPRAMIDE 10MG/2ML INJ VL 01/10/2016 01/09/2017 IVP W7EYDLQI ZOLPIDEM 5MG TABLET TAB 01/10/2016 01/09/2017 PO HSPRNI&2200 diphenhydrAMINE 25MG CAPSULE CAP 01/10/2016 01/09/2017 PO Q6HPRN diphenhydrAMINE 50MG/1ML INJ VL 01/10/2016 01/09/2017 IVP Q6HPRN diazePAM 5MG TABLET TAB 01/10/2016 01/09/2017 PO G2NIGZP LIDOCAINE 2% SYRINGE [100MG/5ML] SYR 01/10/2016 01/10/2016 [...] BULMARO TEJADA DF E78.5 Hyperlipidemia, unspecified 01/11/2016 BULMAOR TEJADA DF F41.8 Other specified anxiety disorders 01/11/2016 BULMARO TEJADA DF G95.20 Unspecified cord compression 01/11/2016 BULMARO TEJADA DF I10 Essential (primary) hypertension 01/11/2016 BULMARO TEJADA DF I25.10 Atherosclerotic heart disease of [place] 01/11/2016 BULMARO TEJADA DF K21.9 Gastro-esophageal reflux disease without 01/11/2016 BULMARO TEJADA DF M48.02 Spinal stenosis, cervical region 01/11/2016 BULMARO TEJADA DF M50.11 Cervical disc disorder with radiculopath 01/11/2016 BULMARO TEJADA DA M50.12 Cervical disc disorder with radiculopath 01/11/2016 TERRELL BULMARO DF 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 01/11/2016 ANGELIC TEJADAEW DF Z95.1 Presence of aortocoronary bypass graft 02/20/2016 ANGELIC TEJADAEW DF M48.02 Spinal stenosis, cervical region 02/20/2016 TERRELLBULMARO DF M50.20 Other cervical disc displacement, unspec 02/20/2016 ANGELIC TEJADAEW DF Z98.1 Arthrodesis status 05/06/2016 ANGELIC TEJADAEW DF M54.2 Cervicalgia 05/06/2016 BULMARO TEJADA Z98.1 Arthrodesis status Procedures Code Description [place] [address] LAPARO CHOLECYSTECTOMY/GRAPH Fer BRADY, Charlie Burks 02/02/2012 99311 X-RAY EXAM OF SHOULDER 07/30/2015 [id number] Fusion of Cervical Vertebral Joint with BULMARO TEJADA 01/10/2016 [id number] Resection of Cervical Vertebral Disc, Op BULMARO [...] 7.0 NA 5.0-8.0 Protein Negative Negative Specific [place] 1.017 NA 1.003-1.030 UA Collection type Clean [...] in Urine by Test strip Negative Neg 41192-4 - 01/10/16 09:37 Leukocytes [#/volume] in Blood [...] - 17.0 Neutrophils/100 leukocytes in Blood 54.3 68055-2 38.3 - 69.0 2345-7 - 01/10/16 09:37 [...] Status Pt. Type Provider Facility Loc./Unit Complaint [id number] 02/02/2012 07:25:00 2011 13:30:00 DIS Outpatient Fer BRADY, Charlie Burks [address]
--- OUTSIDE RECORDS SUMMARY | 2016-09-23 09:28 | XMS REPORT | Referral Summary ---
Author Author [facility] Organization [facility] Address Unknown Phone Unavailable Care Team Providers Care Small Machine Bindery Operator Name Role Phone Maliha Gallegos Primary Care Physician [phone] Encounter Date(s): 01/08/15 - 01/08/15 [facility] [address] [place], [place] [address] Discharge Diagnosis: Spinal stenosis, lumbar region, without neurogenic claudication Discharge Diagnosis: Lumbar spondylosis Discharge Diagnosis: DDD (degenerative disc disease), lumbosacral Discharge Diagnosis: Lumbar disc herniation Discharge Diagnosis: Lumbar radiculopathy Discharge Disposition: 01-Home or Self Care Attending Physician: Ladi Page PA-C Admitting Physician: Ladi Page PA-C Vital Signs Most recent to 1 oldest [Reference Range]: Blood Pressure 128/72 mmHg [90-140/60-90 mmHg] (01/08/15 9:01 AM) Problem List Condition Effective Dates [...] Daily, # 90 tabs, 3 Refill(s), Pharmacy: [facility], 1 tabs Oral Daily,x90 days Start Date: 07/11/14 Stop Date: 07/06/15 Status: Ordered cholestyramine 4 g/5 g oral powder for reconstitution 1 packets, Oral, Daily, dissolve in 6 to 8 ounces of water; may increase to 2-3 packets in water daily;, # 60 Each, 11 Refill(s), Pharmacy: [facility], 1 packets Oral Daily,Instr:dissolve in 6 to 8 ounces of water; may increase to 2 -3 packets i... Start Date: 11/18/13 Status: Ordered citalopram 20 mg oral tablet 10 mg 0.5 tabs, Oral, Daily, # 45 tabs, 0 Refill(s), Pharmacy: [facility] , 0.5 tabs Oral Daily Start Date: 06/01/15 Status: Ordered clopidogrel 75 mg oral tablet 75 mg 1 tabs, Oral, Daily, # 90 tabs, 0 Refill(s), Pharmacy: [facility], 1 tabs Oral Daily Start Date: 06/01/15 Status: Ordered Co-Q10 200 mg oral capsule 1 caps, Oral, Daily, # 30 caps, 0 Refill(s) Start Date: 11/18/13 Status: Ordered famotidine 40 mg oral tablet 40 mg 1 tabs, Oral, Bedtime (once a day), # 30 tabs, 5 Refill(s), Pharmacy: [facility], 1 tabs Oral Bedtime (once a day) Start Date: 07/12/15 Status: Ordered Fish Oil 1200 mg oral capsule 2 caps, Oral, BID, 0 Refill(s) Start Date: 07/11/14 Status: Ordered Flonase 50 mcg/inh nasal spray 2 sprays, Nasal, Daily, as needed for allergies, # 3 Each, 3 Refill(s), Pharmacy : [facility] Start Date: 07/11/14 Status: Ordered gabapentin 300 mg oral capsule 300 mg 1 caps, Oral, Bedtime (once a day), # 90 caps, 0 Refill(s), Pharmacy: [facility], 1 caps Oral Bedtime (once a day) Start Date: 06/01/15 Status: Ordered Glucosamine & Chondroitin with MSM tabs, Oral, BID, 0 Refill(s) Start Date: 11/18/13 Status: Ordered Livalo 4 mg oral tablet 4 mg 1 tabs, Oral, Daily, # 90 tabs, 0 Refill(s), Pharmacy: [facility], 1 tabs Oral Daily Start Date: 06/01/15 Status: Ordered losartan 50 mg oral tablet 50 mg 1 tabs, Oral, Daily, # 90 tabs, 0 Refill(s), Pharmacy: [facility], 1 tabs Oral Daily Start Date: 06/01/15 Status: Ordered multivitamin 1 tabs, Oral, Daily, 0 Refill(s) Start Date: 11/13/13 Status: Ordered Nitrostat 0.4 mg sublingual tablet 1 tabs, SubLingual, q5min, as needed for chest pain, not to exceed 3 doses/15 min--if pain persists, seek medical attention, # 30 tabs, 11 Refill(s), Pharmacy : [facility], 1 tabs SubLingual q5min,PRN:as needed for chest pain,Instr: not to exceed... Start Date: 07/11/14 Status: Ordered Saw [place] oral capsule 450 mg, Oral, BID, 0 [...] pain, # 100 g, 0 Refill(s), Pharmacy: [facility] Start Date: 04/04/15 Status: Ordered Results [...] Visit Note Author: Ladi Page PA-C Date: 01/08/15 Assessment/Plan DDD (degenerative disc disease), lumbosacral Lumbar disc herniation Lumbar radiculopathy Lumbar spondylosis Spinal stenosis, lumbar region, without neurogenic claudication I discussed the patient's plan of care with Dr. Siu. I also reviewed the patient's most recent lumbar MRI with the patient using a spinal model. According to this MRI the patient has disc protrusion at L5-S1 causing bilateral foraminal stenosis. He has facet arthropathy at L4 5 and L5-S1. This coincides with the patient's low back pain. Dr. Siu recommends proceeding with bilateral L5-S1 facet joint injection. The patient does understand the rationale for the procedure as well as possible complications including bleeding, infection, allergic reaction, nerve irritation or damage, and risk of spinal headache. The patient also understands other remote possible complications including paraplegia, quadriplegia, , stroke, and seizure. The patient voiced understanding and wishes to proceed. The patient requests a local anesthetic. The patient will follow-up in 2-3 months following the injection. If the patient fails to improve or worsening symptoms, they will follow-up sooner. The patient voiced understanding and agrees to the above plan. Physical exam findings, history present illness, and recommendations are performed with and in agreement with Dr. Siu's findings.
--- OUTSIDE RECORDS SUMMARY | 2016-09-23 09:28 | XMS REPORT | Referral Summary ---
Author Author [facility] Organization [facility] Address Unknown Phone Unavailable Care Team Providers Care Tube Carrier Name Role Phone Maliha Gallegos Primary Care Physician [phone] Encounter Date(s): 10/02/15 - 10/02/15 [facility] [address] [place], [place] [address] Discharge Diagnosis: Lumbar radiculopathy Discharge Diagnosis: Spinal stenosis, lumbar region, without neurogenic claudication Discharge Diagnosis: Lumbar disc herniation Discharge Disposition: 01-Home or Self Care Attending Physician: Lui Siu MD Admitting Physician: Lui Siu MD Vital Signs Most recent to 1 oldest [Reference Range]: Peripheral Pulse 50 bpm Rate [60-100 bpm] *LOW* (10/02/15 9:37 AM) Respiratory Rate 16 br/min [14-20 br/min] (10/02/15 9:37 AM) Blood Pressure 136/80 mmHg [90-140/60-90 mmHg] (10/02/15 9:37 AM) SpO2 99 % (10/02/15 9:37 AM) Problem List Condition Effective Dates Status [...] Daily, # 45 tabs, 0 Refill(s), Pharmacy: [facility] , 0.5 tabs Oral Daily Start Date: 06/01/15 Status: Ordered clopidogrel 75 mg oral tablet See Instructions, 1 tabs Oral Daily, # 90 tabs, eRx: [facility], 1 tabs Oral Daily Start Date: 09/17/15 Status: Ordered Co-Q10 200 mg oral capsule 1 caps, Oral, Daily, # 30 caps, 0 Refill(s) Start Date: 11/18/13 Status: Ordered famotidine 40 mg oral tablet 40 mg 1 tabs, Oral, Bedtime (once a day), # 30 tabs, 5 Refill(s), Pharmacy: [facility], 1 tabs Oral Bedtime (once a day) Start Date: 07/12/15 Status: Ordered Fish Oil 1200 mg oral capsule 2 caps, Oral, BID, 0 Refill(s) Start Date: 07/11/14 Status: Ordered Flonase 50 mcg/inh nasal spray 2 sprays, Nasal, Daily, as needed for allergies, # 3 Each, 3 Refill(s), Pharmacy : [facility] Start Date: 07/11/14 Status: Ordered gabapentin 300 mg oral capsule 300 mg 1 caps, Oral, Bedtime (once a day), # 90 caps, 0 Refill(s), Pharmacy: [facility], 1 caps Oral Bedtime (once a day) Start Date: 09/10/15 Status: Ordered Glucosamine & Chondroitin with MSM tabs, Oral, BID, 0 Refill(s) Start Date: 11/18/13 Status: Ordered Livalo 4 mg oral tablet 4 mg 1 tabs, Oral, Daily, PT. IS DUE FOR LABS., # 90 tabs, 0 Refill(s), Pharmacy : [facility], 1 tabs Oral Daily,Instr:PT. IS DUE FOR LABS. Start Date: 09/10/15 Status: Ordered losartan 50 mg oral tablet 50 mg 1 tabs, Oral, Daily, PT. IS DUE FOR LABS., # 90 tabs, 0 Refill(s), Pharmacy: [facility], 1 tabs Oral Daily,Instr:PT. IS DUE FOR LABS. Start Date: 09/10/15 Status: Ordered multivitamin 1 tabs, Oral, Daily, 0 Refill(s) Start Date: 11/13/13 Status: Ordered Nitrostat 0.4 mg sublingual tablet 1 tabs, SubLingual, q5min, as needed for chest pain, not to exceed 3 doses/15 min--if pain persists, seek medical attention, # 30 tabs, 11 Refill(s), Pharmacy : [facility], 1 tabs SubLingual q5min,PRN:as needed for chest pain,Instr: not to exceed... Start Date: 07/11/14 Status: Ordered Saw [place] oral capsule 450 mg, Oral, BID, 0 [...] pain, # 100 g, 0 Refill(s), Pharmacy: [facility] Start Date: 04/04/15 Status: Ordered Results No data available for this section Immunizations Vaccine Date Refusal Reason hepatitis A-hepatitis B vaccine 03/30/13 hepatitis A-hepatitis B vaccine 09/28/12 hepatitis A-hepatitis B vaccine 07/30/12 influenza virus vaccine, live 06/30/13 pneumococcal 23-polyvalent vaccine 07/30/12 tetanus/diphtheria/pertussis, acel(Tdap) 06/25/11 zoster vaccine live 09/08/14 Procedures Procedure Date Related Diagnosis Body Site Bilateral L5-S1 Transforaminal 10/02/15 Injection(s), anesthetic agent and/or 10/02/15 steroid, transforaminal epidural, with imaging guidance (fluoroscopy or CT); lumbar or sacral, single level Right T10-11/T11-12 Facet 03/26/15 Colonoscopy normal1 11/20/14 [...]
--- OUTSIDE RECORDS SUMMARY | 2016-09-23 09:28 | XMS REPORT | Referral Summary ---
Author Author [facility] Organization [facility] Address Unknown Phone Unavailable Care Team Providers Care Marketing Automation Manager Name Role Phone Maliha Gallegos Primary Care Physician [phone] Encounter [facility] [id number] Date(s): 11/28/14 - 11/28/14 [facility] [address] [place], [place] [address] Discharge Diagnosis: Hip pain Discharge Diagnosis: Spondylosis, [...] Daily, # 90 tabs, 3 Refill(s), Pharmacy: [facility], 1 tabs Oral Daily,x90 days Start Date: 07/11/14 Stop Date: 07/06/15 Status: Ordered cholestyramine 4 g/5 g oral powder for reconstitution 1 packets, Oral, Daily, dissolve in 6 to 8 ounces of water; may increase to 2-3 packets in water daily;, # 60 Each, 11 Refill(s), Pharmacy: [facility], 1 packets Oral Daily,Instr:dissolve in 6 to 8 ounces of water; may increase to 2 -3 packets i... Start Date: 11/18/13 Status: Ordered citalopram 20 mg oral tablet 0.5 tabs, Oral, Daily, X 90 days, # 45 tabs, 3 Refill(s), Pharmacy: [facility], Instruct patient to schedule a complete physical with Dr. Gallegos, 0.5 tabs Oral Daily,x90 days Start Date: 07/11/14 Stop Date: 07/06/15 Status: Ordered clopidogrel 75 mg oral tablet 1 tabs, Oral, Daily, # 90 tabs, 3 Refill(s), Pharmacy: [facility], 1 tabs Oral Daily,x90 days Start [...] # 3 Each, 3 Refill(s), Pharmacy : [facility] Start Date: 07/11/14 Status: Ordered gabapentin 300 mg oral capsule 1 caps, Oral, Bedtime (once a day), # 90 caps, 3 Refill(s), Pharmacy: [facility], instruct patient to schedule a complete physical with Dr. Gallegos., 1 caps Oral Bedtime (once a day),x90 days Start Date: 07/11/14 Stop Date: 07/06/15 Status: Ordered Glucosamine & Chondroitin with MSM tabs, Oral, BID, 0 Refill(s) Start Date: 11/18/13 Status: Ordered Livalo 4 mg oral tablet 1 tabs, Oral, Daily, # 90 tabs, 3 Refill(s), Pharmacy: [facility], Instruct patient to schedule a complete physical with Dr. Gallegos, 1 tabs Oral Daily,x90 days Start Date: 07/11/14 Stop Date: 07/06/15 Status: Ordered losartan 50 mg oral tablet 1 tabs, Oral, Daily, # 90 tabs, 3 Refill(s), Pharmacy: [facility], instruct patient to [...] # 30 tabs, 11 Refill(s), Pharmacy : [facility], 1 tabs SubLingual q5min,PRN:as needed for chest pain,Instr: not to exceed... Start Date: 07/11/14 Status: Ordered Saw [place] [...] pain, # 100 g, 0 Refill(s), Pharmacy: [facility] Start Date: 04/04/15 Status: Ordered Results [...]
--- OUTSIDE RECORDS SUMMARY | 2016-09-23 09:28 | XMS REPORT | Referral Summary ---
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 Name Role Phone Maliha Gallegos Primary Care Physician [phone] Encounter Date(s): 03/20/15 - 03/20/15 [facility] [address] [place], [place] [address] Discharge Diagnosis: Spondylosis, thoracic Discharge Diagnosis: Pain [...] days, # 45 tabs, 3 Refill(s), Pharmacy: [facility], Instruct patient to schedule a [...] # 3 Each, 3 Refill(s), Pharmacy : [facility] Start Date: 07/11/14 Status: Ordered gabapentin 300 mg oral capsule 1 caps, Oral, Bedtime (once a day), # 90 caps, 3 Refill(s), Pharmacy: [facility], instruct patient to schedule a complete physical with Dr. Gallegos., 1 caps Oral Bedtime (once a day),x90 days Start Date: 07/11/14 Stop Date: 07/06/15 Status: Ordered Glucosamine & Chondroitin with MSM tabs, Oral, BID, 0 Refill(s) Start Date: 11/18/13 Status: Ordered Livalo 4 mg oral tablet 1 tabs, Oral, Daily, # 90 tabs, 3 Refill(s), Pharmacy: [facility], Instruct patient to schedule a complete physical with Dr. Gallegos, 1 tabs Oral Daily,x90 days Start Date: 07/11/14 Stop Date: 07/06/15 Status: Ordered losartan 50 mg oral tablet 1 tabs, Oral, Daily, # 90 tabs, 3 Refill(s), Pharmacy: [facility], instruct patient to schedule a [...] # 30 tabs, 11 Refill(s), Pharmacy : [facility], 1 tabs SubLingual q5min,PRN:as needed for chest pain,Instr: not to exceed... Start Date: 07/11/14 Status: Ordered Saw [place] oral capsule 450 mg, Oral, BID, 0 [...]
--- OUTSIDE RECORDS SUMMARY | 2016-09-23 09:29 | XMS REPORT | Referral Summary ---
Author Author [facility] Organization [facility] Address Unknown Phone Unavailable Care Team Providers Care Office Machine Service Supervisor Name Role Phone Maliha Gallegos Primary Care Physician [phone] Encounter [facility] Date(s): 03/26/15 - 03/26/15 [facility] [address] [place], [place] [address] Discharge Diagnosis: Spondylosis, thoracic Discharge Disposition: 01-Home or Self Care Attending Physician: Lui Siu MD Admitting Physician: Lui Siu MD Referring Physician: Leobardo Gallegos MD Vital Signs Most recent to 1 oldest [Reference Range]: Peripheral Pulse 63 bpm Rate [60-100 bpm] (03/26/15 11:16 AM) Respiratory Rate 18 br/min [14-20 br/min] (03/26/15 11:16 AM) Blood Pressure 118/74 mmHg [90-140/60-90 mmHg] (03/26/15 11:16 AM) SpO2 99 % (03/26/15 11:16 AM) Problem List Condition Effective Dates Status [...] Daily, # 90 tabs, 3 Refill(s), Pharmacy: [facility], 1 tabs Oral Daily,x90 days Start Date: 07/11/14 Stop Date: 07/06/15 Status: Ordered cholestyramine 4 g/5 g oral powder for reconstitution 1 packets, Oral, Daily, dissolve in 6 to 8 ounces of water; may increase to 2-3 packets in water daily;, # 60 Each, 11 Refill(s), Pharmacy: [facility], 1 packets Oral Daily,Instr:dissolve in 6 to 8 ounces of water; may increase to 2 -3 packets i... Start Date: 11/18/13 Status: Ordered citalopram 20 mg oral tablet 0.5 tabs, Oral, Daily, X 90 days, # 45 tabs, 3 Refill(s), Pharmacy: [facility], Instruct patient to schedule a complete physical with Dr. Gallegos, 0.5 tabs Oral Daily,x90 days Start Date: 07/11/14 Stop Date: 07/06/15 Status: Ordered clopidogrel 75 mg oral tablet 1 tabs, Oral, Daily, # 90 tabs, 3 Refill(s), Pharmacy: [facility], 1 tabs Oral Daily,x90 [...] # 3 Each, 3 Refill(s), Pharmacy : [facility] Start Date: 07/11/14 Status: Ordered gabapentin 300 mg oral capsule 1 caps, Oral, Bedtime (once a day), # 90 caps, 3 Refill(s), Pharmacy: [facility], instruct patient to schedule a complete physical with Dr. Gallegos., 1 caps Oral Bedtime (once a day),x90 days Start Date: 07/11/14 Stop Date: 07/06/15 Status: Ordered Glucosamine & Chondroitin with MSM tabs, Oral, BID, 0 Refill(s) Start Date: 11/18/13 Status: Ordered Livalo 4 mg oral tablet 1 tabs, Oral, Daily, # 90 tabs, 3 Refill(s), Pharmacy: [facility], Instruct patient to schedule a complete physical with Dr. Gallegos, 1 tabs Oral Daily,x90 days Start Date: 07/11/14 Stop Date: 07/06/15 Status: Ordered losartan 50 mg oral tablet 1 tabs, Oral, Daily, # 90 tabs, 3 Refill(s), Pharmacy: [facility], instruct patient to schedule [...] # 30 tabs, 11 Refill(s), Pharmacy : [facility], 1 tabs SubLingual q5min,PRN:as needed for chest pain,Instr: not to exceed... Start Date: 07/11/14 Status: Ordered Saw [place] oral capsule 450 mg, Oral, BID, 0 [...] Diagnosis Body Site Injection(s), diagnostic or therapeutic 03/26/15 agent, paravertebral facet (zygapophyseal) joint (or nerves innervating that joint) with image guidance (fluoroscopy or CT), cervical or thoracic; second level (List separately in addition to code for primary proced Injection(s), diagnostic or therapeutic 03/26/15 agent, paravertebral facet (zygapophyseal) joint (or nerves innervating that joint) with image guidance (fluoroscopy or CT), cervical or thoracic; single level.. Right T10-11/T11-12 Facet 03/26/15 Colonoscopy normal1 11/20/14 [...]
--- OUTSIDE RECORDS SUMMARY | 2016-09-23 09:29 | XMS REPORT | Referral Summary ---
Author Author [facility] Organization [facility] Address Unknown Phone Unavailable Care Team Providers Care Almond Roaster Name Role Phone Maliha Gallegos Primary Care Physician [phone] Encounter [facility] Date(s): 05/25/15 - 05/25/15 [facility] [address] [place], [place] [address] Discharge Disposition: 01-Home or Self Care Attending Physician: Ladi Page PA-C Admitting Physician: Ladi Page PA-C Referring Physician: Leobardo Gallegos MD Vital Signs Most recent to 1 oldest [Reference Range]: Blood Pressure 124/78 mmHg [90-140/60-90 mmHg] (05/25/15 8:52 AM) Problem List Condition Effective Dates Status [...] Daily, # 90 tabs, 3 Refill(s), Pharmacy: [facility], 1 tabs Oral Daily,x90 days Start Date: 07/11/14 Stop Date: 07/06/15 Status: Ordered cholestyramine 4 g/5 g oral powder for reconstitution 1 packets, Oral, Daily, dissolve in 6 to 8 ounces of water; may increase to 2-3 packets in water daily;, # 60 Each, 11 Refill(s), Pharmacy: [facility], 1 packets Oral Daily,Instr:dissolve in 6 to 8 ounces of water; may increase to 2 -3 packets i... Start Date: 11/18/13 Status: Ordered citalopram 20 mg oral tablet 0.5 tabs, Oral, Daily, X 90 days, # 45 tabs, 3 Refill(s), Pharmacy: [facility], Instruct patient to schedule a complete physical with Dr. Gallegos, 0.5 tabs Oral Daily,x90 days Start Date: 07/11/14 Stop Date: 07/06/15 Status: Ordered clopidogrel 75 mg oral tablet 1 tabs, Oral, Daily, # 90 tabs, 3 Refill(s), Pharmacy: [facility], 1 tabs Oral Daily,x90 days Start [...] # 3 Each, 3 Refill(s), Pharmacy : [facility] Start Date: 07/11/14 Status: Ordered gabapentin 300 mg oral capsule 1 caps, Oral, Bedtime (once a day), # 90 caps, 3 Refill(s), Pharmacy: [facility], instruct patient to schedule a complete physical with Dr. Gallegos., 1 caps Oral Bedtime (once a day),x90 days Start Date: 07/11/14 Stop Date: 07/06/15 Status: Ordered Glucosamine & Chondroitin with MSM tabs, Oral, BID, 0 Refill(s) Start Date: 11/18/13 Status: Ordered Livalo 4 mg oral tablet 1 tabs, Oral, Daily, # 90 tabs, 3 Refill(s), Pharmacy: [facility], Instruct patient to schedule a complete physical with Dr. Gallegos, 1 tabs Oral Daily,x90 days Start Date: 07/11/14 Stop Date: 07/06/15 Status: Ordered losartan 50 mg oral tablet 1 tabs, Oral, Daily, # 90 tabs, 3 Refill(s), Pharmacy: [facility], instruct patient to schedule a complete [...] # 30 tabs, 11 Refill(s), Pharmacy : [facility], 1 tabs SubLingual q5min,PRN:as needed for chest pain,Instr: not to exceed... Start Date: 07/11/14 Status: Ordered Saw [place] oral capsule 450 mg, Oral, BID, 0 [...] pain, # 100 g, 0 Refill(s), Pharmacy: [facility] Start Date: 04/04/15 Status: Ordered Results [...]
--- OUTSIDE RECORDS SUMMARY | 2016-09-23 09:29 | XMS REPORT | Referral Summary ---
Author Author [facility], Family Medicine Organization [facility] Address Unknown Phone Unavailable Care Team Providers Care Dumpman Name Role Phone Maliha Gallegos Primary Care Physician [phone] Encounter VC Date(s): 10/31/15 - 10/31/15 [facility], [address] [place] [id number] Discharge Disposition: 01-Home or Self Care Attending Physician: Leobardo Gallegos MD Admitting Physician: Leobardo Gallegos MD Vital Signs Most recent to 1 oldest [Reference Range]: Temperature Tympanic 36.6 degC [36.6-38.1 degC] (10/31/15 8:39 AM) Peripheral Pulse 56 bpm Rate [60-100 bpm] *LOW* (10/31/15 8:39 AM) Respiratory Rate 16 br/min [14-20 br/min] (10/31/15 8:39 AM) Blood Pressure 138/84 mmHg [90-140/60-90 mmHg] (10/31/15 8:39 AM) Problem List Condition Effective Dates Status [...] Date: 07/11/14 Stop Date: 07/06/15 Status: Ordered citalopram 20 mg oral tablet 10 mg 0.5 tabs, Oral, Daily, PT. NEEDS A CPE AND LABS DONE., # 45 tabs, 0 Refill (s), Pharmacy: [facility], 0.5 tabs Oral Daily,Instr:PT. NEEDS A CPE AND LABS DONE. Start Date: 10/10/15 Status: Ordered clopidogrel 75 mg oral tablet See Instructions, 1 tabs Oral Daily, # 90 tabs, eRx: [facility], 1 tabs Oral Daily Start Date: [...] allergies, # 3 Each, 11 Refill(s), Pharmacy: [facility] Start Date: 10/31/15 Status: Ordered gabapentin 300 mg oral capsule 300 mg 1 caps, Oral, Bedtime (once a day), # 90 caps, 0 Refill(s), Pharmacy: [facility], 1 caps Oral Bedtime (once a day) Start Date: 09/10/15 Status: Ordered Glucosamine & Chondroitin with MSM tabs, Oral, BID, 0 Refill(s) Start Date: 11/18/13 Status: Ordered Livalo 4 mg oral tablet 4 mg 1 tabs, Oral, Daily, PT. IS DUE FOR LABS., # 90 tabs, 0 Refill(s), Pharmacy : [facility], 1 tabs Oral Daily,Instr:PT. IS DUE FOR LABS. Start Date: 09/10/15 Status: Ordered losartan 50 mg oral tablet 50 mg 1 tabs, Oral, Daily, PT. IS DUE FOR LABS., # 90 tabs, 0 Refill(s), Pharmacy: [facility], 1 tabs Oral Daily,Instr:PT. IS [...] to exceed... Start Date: 07/11/14 Status: Ordered [place] 5 mg-325 mg oral tablet 1 tabs, Oral, q6hr, as needed for pain, 0 Refill(s) Start Date: 10/31/15 Status: Ordered Robaxin-750 oral tablet 750 mg 1 tabs, Oral, TID, as needed for pain, 0 Refill(s) Start Date: 10/31/15 Status: Ordered [place] oral capsule 450 mg, Oral, BID, 0 Refill(s) Start Date: 11/13/13 Status: Ordered Vitamin B Complex oral capsule 1 caps, Oral, Daily, 0 Refill(s) Start Date: 07/11/14 Status: Ordered Vitamin D3 1000 intl units oral capsule 1 caps, Oral, Daily, 0 Refill(s) Start Date: 11/13/13 Status: Ordered Results Hematology Most recent to 1 oldest [Reference Range]: WBC [4.8-10.8 4.5 10*3/uL 10*3/uL] *LOW* (10/31/15:27 AM) RBC [4.60-6.20] 4.78 (10/31/15:27 AM) Hgb [14.0-18.0 15.2 gm/dL gm/dL] (10/31/15: AM) Hct [42.0-52.0 %] 44.3 % (10/31/15: AM) MCV [82.0-99.0 fL] 92.7 fL (10/31/15: AM) MCH [27.0-32.0 pg] 31.8 pg (10/31/15: AM) MCHC [32.0-36.0 34.3 gm/dL gm/dL] (10/31/15: AM) RDW [11.5-14.5 %] 13.0 % (10/31/15: AM) Platelet [150-400 202 10*3/uL 10*3/uL] (10/31/15 9:27 AM) MPV [8.8-14.8 fL] 9.5 fL (10/31/15: AM) Immature 0.0 % Granulocytes (10/31/15: AM) [0.0-1.0 %] Neutrophils [51-75 46 % %] *LOW* (10/31/15: AM) Lymphocytes [20-46 39 % %] (10/31/15: AM) Monocytes [4-11 %] 11 % (10/31/15:27 AM) Eosinophils [0-4 %] 3 % (10/31/15:27 AM) Basophils [0-2 %] 1 % (10/31/15: AM) Neutro Absolute 2.05 10*3 [1.90-7.00 10*3] (10/31/15 9:27 AM) Lymph Absolute 1.76 10*3 [0.80-3.30 10*3] (10/31/15 AM) [place] Absolute 0.49 10*3 [0.30-1.00 10*3] (10/31/15:27 AM) Eos Absolute 0.14 10*3 [0.00-0.50 10*3] (10/31/15:27 AM) Baso Absolute 0.04 10*3 [0.00-0.20 10*3] (10/31/15:27 AM) Chemistry Most recent to 1 oldest [Reference Range]: Sodium Lvl [135-144 139 mEq/L mEq/L] (10/31/15 AM) Potassium Lvl 4.2 mEq/L [3.5-5.2 mEq/L] (10/31/15: AM) Chloride [99-111 102 mEq/L mEq/L] (10/31/15 AM) CO2 [23-31 mEq/L] 29 mEq/L (10/31/15: AM) AGAP [3-20] 8 (10/31/15: AM) BUN [8-26 mg/dL] 12 mg/dL (10/31/15 AM) Glucose Lvl [70-99 93 mg/dL mg/dL] (10/31/15 AM) Creatinine Lvl 0.84 mg/dL [0.72-1.25 mg/dL] (10/31/15 AM) eGFR [>60 mL/min] >60 mL/min 1 (10/31/15 AM) Calcium Lvl 9.5 mg/dL [8.9-10.5 mg/dL] (10/31/15 AM) Albumin Lvl [3.4-4.8 4.4 gm/dL gm/dL] (10/31/15 AM) Total Protein 6.9 gm/dL [6.2-8.1 gm/dL] (10/31/15: AM) Globulin [1.8-4.0 2.5 gm/dL gm/dL] (10/31/15 9:27 AM) ALT [0-55 U/L] 17 U/L (10/31/15 9:27 AM) AST [5-34 U/L] 18 U/L (10/31/15 9:27 AM) Alk Phos [40-150 59 U/L U/L] (10/31/15 9:27 AM) Bili Total [0.2-1.2 0.7 mg/dL mg/dL] (10/31/15 9:27 AM) TSH [0.35-4.94] 2.02 (10/31/15 9:27 AM) 1Result Comment: Multiply eGFR results by 1.21 for race. Urinalysis Most recent to 1 oldest [Reference Range]: UA Color Yellow (10/31/15 9:40 AM) UA Appear Cloudy *ABN* (10/31/15 9:40 AM) UA pH [5.0-8.0] 7.0 (10/31/15 9:40 AM) UA Leuk Est Negative [Negative] (10/31/15 9:40 AM) UA Nitrite Negative [Negative] (10/31/15 9:40 AM) UA Protein Negative [Negative] (10/31/15 9:40 AM) UA Glucose Negative [Negative] (10/31/15 9:40 AM) UA Ketones Negative [Negative] (10/31/15 9:40 AM) UA Urobilinogen 1.0 mg/dL [<1.0 mg/dL] (10/31/15 9:40 AM) UA Bili [Negative] Negative (10/31/15 9:40 AM) UA Blood [Negative] Negative (10/31/15 9:40 AM) UA Spec Grav 1.017 [1.003-1.030] (10/31/15 9:40 AM) Type Clean Catch (10/31/15 9:40 AM) Immunizations Vaccine Date Refusal Reason hepatitis A-hepatitis B vaccine 03/30/13 hepatitis A-hepatitis B vaccine 09/28/12 hepatitis A-hepatitis B vaccine 07/30/12 influenza virus vaccine, live 06/30/13 pneumococcal 23-polyvalent vaccine 07/30/12 tetanus/diphtheria/pertussis, acel(Tdap) 06/25/11 zoster vaccine live 3/27/15 Procedures Procedure Date Related Diagnosis Body Site Collection of venous blood by venipuncture 10/31/15 Bilateral L5-S1 Transforaminal 10/02/15 Right T10-11/T11-12 Facet [...] Patient Education Author: Leobardo Gallegos MD Date: 10/30 Cardiovascular Atherosclerosis Atherosclerosis, or hardening of the arteries, is the buildup of plaque within the major arteries in the body. Plaque is made up of fats (lipids), cholesterol , calcium, and fibrous tissue. Plaque can narrow or block blood flow within an artery. Plaque can break off and cause damage to the affected organ. Plaque can also "rupture." When plaque ruptures within an artery, a clot can form, causing a sudden (acute) blockage of the artery. Untreated atherosclerosis can cause serious health problems or . RISK FACTORS High cholesterol levels. Smoking. Obesity. Lack of activity or exercise. Eating a diet high in saturated fat. Family history. Diabetes. SIGNS AND SYMPTOMS Symptoms of atherosclerosis can occur when blood flow to an artery is slowed or blocked. Severity and onset of symptoms depends on how extensive the narrowing or blockage is. A sudden plaque rupture can bring immediate, life-threatening symptoms. Atherosclerosis can affect different arteries in the body, for example : Coronary arteries. The coronary arteries supply the heart with blood. When the coronary arteries are narrowed or blocked from atherosclerosis, this is known as coronary artery disease (CAD). CAD can cause a heart attack. Common heart attack symptoms include: Chest pain or pain that radiates to the neck, arm, jaw, or in the upper, middle back (mid-scapular pain). Shortness of breath without cause. Profuse sweating while at rest. Irregular heartbeats. Nausea or gastrointestinal upset. Carotid arteries. The carotid arteries supply the brain with blood. They are located on each side of your neck. When blood flow to these arteries is slowed or blocked, a transient ischemic attack (TIA) or stroke can occur. A TIA is considered a "mini-stroke" or "warning stroke." TIA symptoms are the same as stroke symptoms, but they are temporary and last less than 24 hours. A stroke can cause permanent damage or . Common TIA and stroke symptoms include: Sudden numbness or weakness to one side of your body, such as the face, arm, or leg. Sudden confusion or trouble speaking or understanding. Sudden trouble seeing out of one or both eyes. Sudden trouble walking, loss of balance, or dizziness. Sudden, severe headache with no known cause. Arteries in the legs. When arteries in the lower legs become narrowed or blocked, this is known as peripheral vascular disease (PVD). PVD can cause a symptom called claudication. Claudication is pain or a burning feeling in your legs when walking or exercising and usually goes away with rest. Very severe PVD can cause pain in your legs while at rest. Renal arteries. The renal arteries supply the kidneys with blood. Blockage of the renal arteries can cause a decline in kidney function or high blood pressure (hypertension). Gastrointestinal arteries (mesenteric circulation). Abdominal pain may occur after eating. DIAGNOSIS Your health care provider may perform the following tests to diagnose atherosclerosis: Blood tests. Stress test. Echocardiogram. Nuclear scan. Ankle/brachial index. Ultrasonography. Computed tomography (CT) scan. Angiography. TREATMENT Atherosclerosis treatment includes the following: Lifestyle changes such as: Quitting smoking. Your health care provider can help you with smoking cessation. Eating a diet low in saturated fat. A registered dietitian can educate you on healthy food options, such as helping you understand the difference between good fat and bad fat. Following an exercise program approved by your health care provider. Maintaining a healthy weight. Lose weight as approved by your health care provider. Have your cholesterol levels checked as directed by your health care provider. Medicines. Cholesterol medicines can help slow or stop the progression of atherosclerosis. Different procedural or surgical interventions to treat atherosclerosis include: Balloon angioplasty. The technical name for balloon angioplasty is percutaneous transluminal angioplasty ([employer]). In this procedure, a catheter with a small balloon at the tip is inserted through the blocked or narrowed artery. The balloon is then inflated. When the balloon is inflated, the fatty plaque is compressed against the artery wall, allowing better blood flow within the artery. Balloon angioplasty and stenting. In this procedure, balloon angioplasty is combined with a stenting procedure. A stent is a small, metal mesh tube that keeps the artery open. After the artery is opened up by the balloon technique, the stent is then deployed. The stent is permanent. Open heart surgery or bypass surgery. To perform this type of surgery, a healthy vessel is first "harvested" from either the leg or arm. The harvested vessel is then used to "bypass" the blocked atherosclerotic vessel so new blood flow can be established. Atherectomy. Atherectomy is a procedure that uses a catheter with a sharp blade to remove plaque from an artery. A chamber in the catheter collects the plaque. Endarterectomy. An endarterectomy is a surgical procedure where a surgeon removes plaque from an artery. Amputation. When blockages in the lower legs are very severe and circulation cannot be restored, amputation may be required. SEEK IMMEDIATE MEDICAL CARE IF: You are having heart attack symptoms, such as: Chest pain or pain that radiates to the neck, arm, jaw, or in the upper, middle back (mid-scapular pain). Shortness of breath without cause. Profuse sweating while at rest. Irregular heartbeats. Nausea or gastrointestinal upset. You are having stroke symptoms, such as sudden: Numbness or weakness to one side of your body, such as the face, arm, or leg. Confusion or trouble speaking or understanding. Trouble seeing out of one or both eyes. Trouble walking, loss of balance, or dizziness. Severe headache with no known cause. Your hands or feet are bluish, cold, or you have pain in them. You have bad abdominal pain after eating. Symptoms of heart attack or stroke may represent a serious problem that is an emergency. Do not wait to see if the symptoms will go away. Get medical help right away. Call your local emergency services (911 in the [place] Do not drive yourself to the hospital. This information is not intended to replace advice given to you by your health care provider. Make sure you discuss any questions you have with your health care provider. Document Released: 08/21/2004 Document Revised: 10/16/2014 Document Reviewed: [facility] Patient Information 2015 [facility]. Preventive Medicine Health Maintenance A healthy lifestyle and preventative care can promote health and wellness. Maintain regular health, dental, and eye exams. Eat a healthy diet. Foods like vegetables, fruits, whole grains, low-fat dairy products, and lean protein foods contain the nutrients you need and are low in calories. Decrease your intake of foods high in solid fats, added sugars , and salt. Get information about a proper diet from your health care provider, if necessary. Regular physical exercise is one of the most important things you can do for your health. Most adults should get at least 150 minutes of moderate- intensity exercise (any activity that increases your heart rate and causes you to sweat) each week. In addition, most adults need muscle-strengthening exercises on 2 or more days a week. Maintain a healthy weight. The body mass index (BMI) is a screening tool to identify possible weight problems. It provides an estimate of body fat based on height and weight. Your health care provider can find your BMI and can help you achieve or maintain a healthy weight. For males 20 years and older: A BMI below 18.5 is considered underweight. A BMI of 18.5 to 24.9 is normal. A BMI of 25 to 29.9 is considered overweight. A BMI of 30 and above is considered obese. Maintain normal blood lipids and cholesterol by exercising and minimizing your intake of saturated fat. Eat a balanced diet with plenty of fruits and vegetables. Blood tests for lipids and cholesterol should begin at age 20 and be repeated every 5 years. If your lipid or cholesterol levels are high, you are over age 50, or you are at high risk for heart disease, you may need your cholesterol levels checked more frequently.Ongoing high lipid and cholesterol levels should be treated with medicines if diet and exercise are not working. If you smoke, find out from your health care provider how to quit. If you do not use tobacco, do not start. Lung cancer screening is recommended for adults aged 5580 years who are at high risk for developing lung cancer because of a history of smoking. A yearly low-dose CT scan of the lungs is recommended for people who have at least a 82-[id number]-[id number] history of smoking and are current smokers or have quit within the past 15 years. A pack year of smoking is smoking an average of 1 pack of cigarettes a day for 1 year (for example, a 31-vmkc-hogl history of smoking could mean smoking 1 pack a day for 30 years or 2 packs a day for 15 years). Yearly screening should continue until the smoker has stopped smoking for at least 15 years. Yearly screening should be stopped for people who develop a health problem that would prevent them from having lung cancer treatment. If you choose to drink alcohol, do not have more than 2 drinks per day. One drink is considered to be 12 oz (360 mL) of beer, 5 oz (150 mL) of wine, or 1.5 oz (45 mL) of liquor. Avoid the use of street drugs. Do not share needles with anyone. Ask for help if you need support or instructions about stopping the use of drugs. High blood pressure causes heart disease and increases the risk of stroke. Blood pressure should be checked at least every 12 years. Ongoing high blood pressure should be treated with medicines if weight loss and exercise are not effective. If you are 4579 years old, ask your health care provider if you should take aspirin to prevent heart disease. Diabetes screening involves taking a blood sample to check your fasting blood sugar level. This should be done once every 3 years after age 45 if you are at a normal weight and without risk factors for diabetes. Testing should be considered at a younger age or be carried out more frequently if you are overweight and have at least 1 risk factor for diabetes. Colorectal cancer can be detected and often prevented. Most routine colorectal cancer screening begins at the age of 50 and continues through age 75. However, your health care provider may recommend screening at an earlier age if you have risk factors for colon cancer. On a yearly basis, your health care provider may provide home test kits to check for hidden blood in the stool. A small camera at the end of a tube may be used to directly examine the colon (sigmoidoscopy or colonoscopy) to detect the earliest forms of colorectal cancer. Talk to your health care provider about this at age 50 when routine screening begins. A direct exam of the colon should be repeated every 510 years through age 75, unless early forms of precancerous polyps or small growths are found. People who are at an increased risk for hepatitis B should be screened for this virus. You are considered at high risk for hepatitis B if: You were born in a country where hepatitis B occurs often. Talk with your health care provider about which countries are considered high risk. Your parents were born in a high-risk country and you have not received a shot to protect against hepatitis B (hepatitis B vaccine). You have HIV or AIDS. You use needles to inject street drugs. You live with, or have sex with, someone who has hepatitis B. You are a man who has sex with other men (MSM). You get hemodialysis treatment. You take certain medicines for conditions like cancer, organ transplantation, and autoimmune conditions. Hepatitis C blood testing is recommended for all people born from 1945 through 1965 and any individual with known risk factors for hepatitis C. Healthy men should no longer receive prostate-specific antigen (PSA) blood tests as part of routine cancer screening. Talk to your health care provider about prostate cancer screening. Testicular cancer screening is not recommended for adolescents or adult males who have no symptoms. Screening includes self-exam, a health care provider exam, and other screening tests. Consult with your health care provider about any symptoms you have or any concerns you have about testicular cancer. Practice safe sex. Use condoms and avoid high-risk sexual practices to reduce the spread of sexually transmitted infections (STIs). You should be screened for STIs, including gonorrhea and chlamydia if: You are sexually active and are younger than 24 years. You are older than 24 years, and your health care provider tells you that you are at risk for this type of infection. Your sexual activity has changed since you were last screened, and you are at an increased risk for chlamydia or gonorrhea. Ask your health care provider if you are at risk. If you are at risk of being infected with HIV, it is recommended that you take a prescription medicine daily to prevent HIV infection. This is called pre-exposure prophylaxis (PrEP). You are considered at risk if: You are a man who has sex with other men (MSM). You are a heterosexual man who is sexually active with multiple partners. You take drugs by injection. You are sexually active with a partner who has HIV. Talk with your health care provider about whether you are at high risk of being infected with HIV. If you choose to begin PrEP, you should first be tested for HIV. You should then be tested every 3 months for as long as you are taking PrEP. Use sunscreen. Apply sunscreen liberally and repeatedly throughout the day. You should seek shade when your shadow is shorter than you. Protect yourself by wearing long sleeves, pants, a wide-brimmed hat, and sunglasses year round whenever you are outdoors. Tell your health care provider of new moles or changes in moles, especially if there is a change in shape or color. Also, tell your health care provider if a mole is larger than the size of a pencil eraser. A one-time screening for abdominal aortic aneurysm (AAA) and surgical repair of large AAAs by ultrasound is recommended for men aged 6575 years who are current or former smokers. Stay current with your vaccines (immunizations). This information is not intended to replace advice given to you by your health care provider. Make sure you discuss any questions you have with your health care provider. Document Released: 11/27/2008 Document Revised: 06/06/2014 Document Reviewed: [facility] Patient Information 2015 [place]. No follow up information was provided. Extracted from: Title: Male physical Author: Leobardo Gallegos MD Date: 10/31/15 Impression and Plan Diagnosis Coronary arteriosclerosis (disorder) (TDL30-TX I25.10, Working, Medical). Essential hypertension (disorder) (WPE92-TT I10, Working, Medical). Hypercholesterolemia (JSN39-QI E78.0, Working, Medical). Cervical spinal stenosis (TPU68-AC M48.02, Working, Medical). Spinal stenosis, lumbar region, without neurogenic claudication (TUV62-LW M48.06 , Working, Medical). Well adult exam (FNW87-WO Z00.00, Working, Medical). Plan: 1) Continue your healthy diet and daily exercise. 2) continue your current meds. 3) Fasting lab today. 4) See me in 6 months and as needed.. Orders Orders (Selected) Outpatient Orders Ordered Periodic Comp Preventive Med 40 to 64 years Est 31089: Future (On Hold) CBC w/ Differential: CMP: Routine Urinalysis: TSH 3rd Generation: Prescriptions Prescribed Flonase 50 mcg/inh nasal spray: 2 sprays, Nasal, Daily, PRN: as needed for allergies, 3 Each, 11 Refill(s). Dx/Order Association Plan: Diagnosis: Cervical spinal stenosis Comment: Ordered: Periodic Comp Preventive Med 40 to 64 years Est 22501; 9:02:00 CDT, Well adult exam | Coronary arteriosclerosis (disorder) | Essential hypertension (disorder) | Cervical spinal stenosis | Hypercholesterolemia Diagnosis: Coronary arteriosclerosis (disorder) Comment: Ordered: Periodic Comp Preventive Med 40 to 64 years Est [id number]; 9:02:00 CDT, Well adult exam | Coronary arteriosclerosis (disorder) | Essential hypertension (disorder) | Cervical spinal stenosis | Hypercholesterolemia Diagnosis: Essential hypertension (disorder) Comment: Ordered: Periodic Comp Preventive Med 40 to 64 years Est [id number]; 9:02:00 CDT, Well adult exam | Coronary arteriosclerosis (disorder) | Essential hypertension (disorder) | Cervical spinal stenosis | Hypercholesterolemia Diagnosis: Hypercholesterolemia Comment: Ordered: Periodic Comp Preventive Med 40 to 64 years Est 04381; 9:02:00 CDT, Well adult exam | Coronary arteriosclerosis (disorder) | Essential hypertension (disorder) | Cervical spinal stenosis | Hypercholesterolemia Diagnosis: Spinal stenosis, lumbar region, without neurogenic claudication Comment: Diagnosis: Well adult exam Comment: Ordered: Periodic Comp Preventive Med 40 to 64 years Est 49226; 9:02:00 CDT, Well adult exam | Coronary arteriosclerosis (disorder) | Essential hypertension (disorder) | Cervical spinal stenosis | Hypercholesterolemia Diagnosis: Well adult exam Comment: Diagnosis: Essential hypertension (disorder) Comment: Diagnosis: Well adult exam Comment: Diagnosis: Hypercholesterolemia Comment: Diagnosis: Essential hypertension (disorder) Comment: Diagnosis: Well adult exam Comment: Diagnosis: Coronary arteriosclerosis (disorder) Comment: Diagnosis: Hypercholesterolemia Comment: Diagnosis: Well adult exam Comment: Diagnosis: Essential hypertension (disorder) Comment: Additional Orders: Comment: Ordered: Flonase 50 mcg/inh nasal spray,2 sprays, Nasal, Daily, as needed for allergies, # 3 Each, 11 Refill(s), Pharmacy: [facility] End of Orders .
--- OUTSIDE RECORDS SUMMARY | 2016-09-23 09:29 | XMS REPORT | Referral Summary ---
Author Author [facility] Organization [facility] Address Unknown Phone Unavailable Care Team Providers Care Manager Wind Name Role Phone Maliha Gallegos Primary Care Physician [phone] Encounter VC Date(s): 12/13/14 - 12/13/14 [facility] [address] [place], [place] [address] Discharge Diagnosis: Hip pain Discharge Disposition: 01-Home or Self Care Attending Physician: Lui Siu MD Admitting Physician: Lui Siu MD Vital Signs Most recent to 1 oldest [Reference Range]: Blood Pressure 117/68 mmHg [90-140/60-90 mmHg] (12/13/14 3:42 PM) Problem List Condition Effective Dates Status [...] Daily, # 45 tabs, 0 Refill(s), Pharmacy: [facility] , 0.5 tabs Oral Daily Start Date: 06/01/15 Status: Ordered clopidogrel 75 mg oral tablet 75 mg 1 tabs, Oral, Daily, # 90 tabs, 0 Refill(s), Pharmacy: [facility], 1 tabs Oral Daily Start Date: [...] # 3 Each, 3 Refill(s), Pharmacy : [facility] Start Date: 07/11/14 Status: Ordered gabapentin 300 mg oral capsule 300 mg 1 caps, Oral, Bedtime (once a day), # 90 caps, 0 Refill(s), Pharmacy: [facility], 1 caps Oral Bedtime (once a day) Start Date: 06/01/15 Status: Ordered Glucosamine & Chondroitin with MSM tabs, Oral, BID, 0 Refill(s) Start Date: 11/18/13 Status: Ordered Livalo 4 mg oral tablet 4 mg 1 tabs, Oral, Daily, # 90 tabs, 0 Refill(s), Pharmacy: [facility], 1 tabs Oral Daily Start Date: 06/01/15 Status: Ordered losartan 50 mg oral tablet 50 mg 1 tabs, Oral, Daily, # 90 tabs, 0 Refill(s), Pharmacy: [facility], 1 tabs Oral Daily Start Date: [...] exceed... Start Date: 07/11/14 Status: Ordered Saw [place] oral capsule 450 mg, Oral, BID, 0 [...] pain, # 100 g, 0 Refill(s), Pharmacy: [facility] Start Date: 04/04/15 Status: Ordered Results No data available for this section Immunizations Vaccine Date Refusal Reason hepatitis A-hepatitis B vaccine 03/30/13 hepatitis A-hepatitis B vaccine 09/28/12 hepatitis A-hepatitis B vaccine 07/30/12 influenza virus vaccine, live 06/30/13 pneumococcal 23-polyvalent vaccine 07/30/12 tetanus/diphtheria/pertussis, acel(Tdap) 06/25/11 zoster vaccine live 09/08/14 Procedures Procedure Date Related Diagnosis Body Site Right T10-11/T11-12 Facet 03/26/15 Arthrocentesis, aspiration and/or injection, 12/13/14 major joint or bursa (eg, shoulder, hip, knee, subacromial bursa); with ultrasound guidance, with permanent recording and reporting Arthrocentesis, aspiration and/or injection, 12/13/14 major joint or bursa (eg, shoulder, hip, knee, subacromial bursa); with ultrasound guidance, with permanent recording and reporting Arthrocentesis, aspiration and/or injection, 12/13/14 major joint or bursa (eg, shoulder, hip, knee, subacromial bursa); with ultrasound guidance, with permanent recording and reporting Arthrocentesis, aspiration and/or injection, 12/13/14 major joint or bursa (eg, shoulder, hip, knee, subacromial bursa); without ultrasound guidance Arthrocentesis, aspiration and/or injection, 12/13/14 major joint or bursa (eg, shoulder, hip, knee, subacromial bursa); without ultrasound guidance Colonoscopy normal1 11/20/14 Esophagogastroduodenoscopy and biopsy2 11/20/14 [...]
--- OUTSIDE RECORDS SUMMARY | 2016-09-23 09:29 | XMS REPORT | Referral Summary ---
Author Author [facility] Organization [facility] Address Unknown Phone Unavailable Care Team Providers Care Campaign Marketing Manager Name Role Phone Maliha Gallegos Primary Care Physician [phone] Encounter VC Date(s): 12/12/15 - 12/12/15 [facility] [address] [place], [place] [address] Discharge Diagnosis: Lumbar disc herniation Discharge Diagnosis: Lumbar radiculopathy Discharge Diagnosis: Spinal stenosis, lumbar region, without neurogenic claudication Discharge Disposition: 01-Home or Self Care Attending Physician: Lui Siu MD Admitting Physician: Lui Siu MD Vital Signs Most recent to 1 oldest [Reference Range]: Apical Heart Rate 57 bpm [60-100 bpm] *LOW* (12/12/15 3:13 PM) Respiratory Rate 12 br/min [14-20 br/min] *LOW* (12/12/15 3:13 PM) Blood Pressure 136/75 mmHg [90-140/60-90 mmHg] (12/12/15 3:13 PM) SpO2 100 % (12/12/15 3:13 PM) Problem List Condition Effective Dates Status [...] # 45 tabs, 0 Refill (s), Pharmacy: [facility], 0.5 tabs Oral Daily,Instr:PT. NEEDS A CPE AND LABS DONE. Start Date: 10/10/15 Status: Ordered clopidogrel 75 mg oral tablet See Instructions, 1 tabs Oral Daily, # 90 tabs, eRx: [facility], 1 tabs Oral Daily Start Date: 09/17/15 Status: Ordered Co-Q10 200 mg oral capsule 1 caps, Oral, Daily, # 30 caps, 0 Refill(s) Start Date: 11/18/13 Status: Ordered famotidine 40 mg oral tablet 40 mg 1 tabs, Oral, Bedtime (once a day), # 30 tabs, 5 Refill(s), Pharmacy: [facility], 1 tabs Oral Bedtime (once a day) Start Date: 07/12/15 Status: Ordered Fish Oil 1200 mg oral capsule 2 caps, Oral, BID, 0 Refill(s) Start Date: 07/11/14 Status: Ordered Flonase 50 mcg/inh nasal spray 2 sprays, Nasal, Daily, as needed for allergies, # 3 Each, 11 Refill(s), Pharmacy: [facility] Start Date: 10/31/15 Status: Ordered gabapentin 300 mg oral capsule See Instructions, TAKE 1 CAPSULE BY MOUTH DAILY AT BEDTIME, # 90 caps, eRx: [facility], TAKE 1 CAPSULE BY MOUTH DAILY AT BEDTIME Start Date: 12/11/15 Status: Ordered Glucosamine & Chondroitin with MSM tabs, Oral, BID, 0 Refill(s) Start Date: 11/18/13 Status: Ordered Livalo 4 mg oral tablet See Instructions, TAKE 1 TABLET BY MOUTH DAILY, # 90 tabs, 3 Refill(s), eRx: [facility], TAKE 1 TABLET BY MOUTH DAILY Start Date: 11/14/15 Status: Ordered losartan 50 mg oral tablet See Instructions, TAKE 1 TABLET BY MOUTH DAILY, # 90 tabs, eRx: [facility], TAKE 1 TABLET BY MOUTH [...] to exceed... Start Date: 07/11/14 Status: Ordered [place] 5 mg-325 mg oral tablet 1 tabs, Oral, q6hr, as needed for pain, 0 Refill(s) Start Date: 10/31/15 Status: Ordered Robaxin-750 oral tablet 750 mg 1 tabs, Oral, TID, as needed for pain, 0 Refill(s) Start Date: 10/31/15 Status: Ordered Saw [place] oral capsule 450 mg, Oral, BID, 0 [...] Procedure Date Related Diagnosis Body Site Injection(s), anesthetic agent and/or 12/12/15 steroid, transforaminal epidural, with imaging guidance (fluoroscopy or CT); lumbar or sacral, each additional level (List separately in addition to code for primary procedure)..... Injection(s), anesthetic agent and/or 12/12/15 steroid, transforaminal epidural, with imaging guidance (fluoroscopy or CT); lumbar or sacral, single level Left L4-5/L5-S1 Transferaminal 12/12/15 Bilateral L5-S1 Transforaminal 10/02/15 Right T10-11/T11-12 Facet 03/26/15 Colonoscopy normal1 11/20/14 Esophagogastroduodenoscopy and biopsy2 11/20/14 L5-S1 Translaminar 09/19/14 [facility] Thoracic Mid-Level Facet 09/05/14 Excision of mucous cyst with local rotation 10/27/13 flat, LT MF Cardiac catheterization 08/01/11 Stent placement, cardiac 08/01/11 Angioplasty 2012 Cholecystectomy 2011 Percutaneous coronary intervention 2012 Angioplasty 01/2010 Percutaneous coronary intervention 2010 Stent [...]
--- OUTSIDE RECORDS SUMMARY | 2016-09-23 09:29 | XMS REPORT | Referral Summary ---
Author Author [facility] Organization [facility] Address Unknown Phone Unavailable Care Team Providers Care Driller Multiple Spindle Name Role Phone Maliha Gallegos Primary Care Physician [phone] Encounter VC Date(s): 04/04/15 - 04/04/15 [facility] [address] [place], [place] [address] Discharge Diagnosis: Primary osteoarthritis of right [...] daily;, # 60 Each, 11 Refill(s), Pharmacy: [facility], 1 packets Oral Daily,Instr:dissolve in 6 to 8 ounces of water; may increase to 2 -3 packets i... Start Date: 11/18/13 Status: Ordered citalopram 20 mg oral tablet 0.5 tabs, Oral, Daily, X 90 days, # 45 tabs, 3 Refill(s), Pharmacy: [facility], Instruct patient to schedule [...] # 3 Each, 3 Refill(s), Pharmacy : [facility] Start Date: 07/11/14 Status: Ordered gabapentin 300 mg oral capsule 1 caps, Oral, Bedtime (once a day), # 90 caps, 3 Refill(s), Pharmacy: [facility], instruct patient to schedule a complete physical with Dr. Gallegos., 1 caps Oral Bedtime (once a day),x90 days Start Date: 07/11/14 Stop Date: 07/06/15 Status: Ordered Glucosamine & Chondroitin with MSM tabs, Oral, BID, 0 Refill(s) Start Date: 11/18/13 Status: Ordered Livalo 4 mg oral tablet 1 tabs, Oral, Daily, # 90 tabs, 3 Refill(s), Pharmacy: [facility], Instruct patient to schedule a complete physical with Dr. Gallegos, 1 tabs Oral Daily,x90 days Start Date: 07/11/14 Stop Date: 07/06/15 Status: Ordered losartan 50 mg oral tablet 1 tabs, Oral, Daily, # 90 tabs, 3 Refill(s), Pharmacy: [facility], instruct patient to schedule [...] # 30 tabs, 11 Refill(s), Pharmacy : [facility], 1 tabs SubLingual q5min,PRN:as needed for chest pain,Instr: not to exceed... Start Date: 07/11/14 Status: Ordered Saw [place] oral capsule 450 mg, Oral, BID, 0 [...] pain, # 100 g, 0 Refill(s), Pharmacy: [facility] Start Date: 04/04/15 Status: [...] one of the other orthopedic surgeons in [facility] who does more of this. It is [...] # 100 g, 0 Refill(s) , Pharmacy: [facility] Office Visit Level 3 New [id number]
--- OUTSIDE RECORDS SUMMARY | 2016-09-23 09:29 | XMS REPORT | Referral Summary ---
Author Author [facility] Organization [facility] Address Unknown Phone Unavailable Care Team Providers Care Insulation Hoseman Name Role Phone Maliha Gallegos Primary Care Physician [phone] Encounter VC Date(s): 10/20/14 - 10/20/14 [facility] [address] [place] [address] [place] [id number] Discharge Diagnosis: Dysphagia Discharge Diagnosis: Family history [...] Daily, # 90 tabs, 3 Refill(s), Pharmacy: [facility], 1 tabs Oral Daily,x90 days Start Date: 07/11/14 Stop Date: 07/06/15 Status: Ordered cholestyramine 4 g/5 g oral powder for reconstitution 1 packets, Oral, Daily, dissolve in 6 to 8 ounces of water; may increase to 2-3 packets in water daily;, # 60 Each, 11 Refill(s), Pharmacy: [facility], 1 packets Oral Daily,Instr:dissolve in 6 to 8 ounces of water; may increase to 2 -3 packets i... Start Date: 11/18/13 Status: Ordered citalopram 20 mg oral tablet 0.5 tabs, Oral, Daily, X 90 days, # 45 tabs, 3 Refill(s), Pharmacy: [facility], Instruct patient to schedule a complete physical with Dr. Gallegos, 0.5 tabs Oral Daily,x90 days Start Date: 07/11/14 Stop Date: 07/06/15 Status: Ordered clopidogrel 75 mg oral tablet 1 tabs, Oral, Daily, # 90 tabs, 3 Refill(s), Pharmacy: [facility], 1 tabs Oral Daily,x90 days [...] # 3 Each, 3 Refill(s), Pharmacy : [facility] Start Date: 07/11/14 Status: Ordered gabapentin 300 mg oral capsule 1 caps, Oral, Bedtime (once a day), # 90 caps, 3 Refill(s), Pharmacy: [facility], instruct patient to schedule a complete physical with Dr. Gallegos., 1 caps Oral Bedtime (once a day),x90 days Start Date: 07/11/14 Stop Date: 07/06/15 Status: Ordered Glucosamine & Chondroitin with MSM tabs, Oral, BID, 0 Refill(s) Start Date: 11/18/13 Status: Ordered Livalo 4 mg oral tablet 1 tabs, Oral, Daily, # 90 tabs, 3 Refill(s), Pharmacy: [facility], Instruct patient to schedule a complete physical with Dr. Gallegos, 1 tabs Oral Daily,x90 days Start Date: 07/11/14 Stop Date: 07/06/15 Status: Ordered losartan 50 mg oral tablet 1 tabs, Oral, Daily, # 90 tabs, 3 Refill(s), Pharmacy: [facility], instruct patient to schedule a [...] # 30 tabs, 11 Refill(s), Pharmacy : [facility], 1 tabs SubLingual q5min,PRN:as needed for chest pain,Instr: not to exceed... Start Date: 07/11/14 Status: Ordered Saw [place] oral capsule 450 mg, Oral, BID, 0 [...] pain, # 100 g, 0 Refill(s), Pharmacy: [facility] Start Date: 04/04/15 Status: Ordered [...] Released: 05/29/2001 Document Revised: 02/01/2014 Document Reviewed: [facility] Patient Information 2014 [employer]. No follow up information was provided. Extracted from: Title: Office Visit Note Author: Ismael Shine MD Date: 10/20/14 Assessment/Plan Dysphagia Ordered: Office Visit Level 4 New [id number] Family history of esophageal cancer Ordered: Office Visit Level 4 New [id number] Plan: EGD possible dilatation. Hemoccult cards. If [...]
--- OUTSIDE RECORDS SUMMARY | 2016-09-23 09:30 | XMS REPORT | Referral Summary ---
Author Author [facility] Organization [facility] Address Unknown Phone Unavailable Care Team Providers Care Client Services Manager Name Role Phone Maliha Gallegos Primary Care Physician [phone] Encounter [facility] [id number] Date(s): 08/05/16 - 08/05/16 [facility], [address] [place] [id number] Discharge Diagnosis: Gastroesophageal reflux disease Discharge Diagnosis: Benign essential hypertension Discharge Diagnosis: Chronic thoracic back pain Discharge Diagnosis: CAD (coronary artery disease) Discharge Diagnosis: Well adult exam Discharge Diagnosis: Bilateral primary osteoarthritis of hip Discharge Diagnosis: Primary hypercholesterolemia Discharge Diagnosis: Acute bronchitis Discharge Disposition: 01-Home or Self Care Attending Physician: Leobardo Gallegos MD Admitting Physician: Leobardo Gallegos MD Vital Signs Most recent to 1 oldest [Reference Range]: Temperature Tympanic 36.4 degC [36.6-38.1 degC] *LOW* (08/05/16 11:07 AM) Peripheral Pulse 60 bpm Rate [60-100 bpm] (08/05/16 11:07 AM) Respiratory Rate 18 br/min [14-20 br/min] (08/05/16 11:07 AM) Blood Pressure 126/80 mmHg [90-140/60-90 mmHg] (08/05/16 11:07 AM) Problem List Condition Effective Dates Status [...] # 90 tabs, 3 Refill(s), Pharmacy: [facility], 1 tabs Oral Daily,x90 days Start Date: 07/11/14 Stop Date: 07/06/15 Status: Ordered clopidogrel 75 mg oral tablet See Instructions, TAKE 1 TABLET BY MOUTH DAILY, # 90 tabs, 1 Refill(s), eRx: [facility], TAKE 1 TABLET BY MOUTH DAILY Start Date: 04/23/16 Status: Ordered Co-Q10 200 mg oral capsule 1 caps, Oral, Daily, # 30 caps, 0 Refill(s) Start Date: 11/18/13 Status: Ordered Flonase 50 mcg/inh nasal spray 2 sprays, Nasal, Daily, as needed for allergies, # 3 Each, 11 Refill(s), Pharmacy: [facility] Start Date: 10/31/15 Status: Ordered gabapentin 300 mg oral capsule See Instructions, TAKE 1 CAPSULE BY MOUTH DAILY AT BEDTIME, # 90 caps, 1 Refill( s), eRx: [facility] Start Date: 06/10/16 Status: Ordered Glucosamine & Chondroitin with MSM tabs, Oral, BID, 0 Refill(s) Start Date: 11/18/13 Status: Ordered Livalo 4 mg oral tablet See Instructions, TAKE 1 TABLET BY MOUTH DAILY, # 90 tabs, 3 Refill(s), eRx: [facility], TAKE 1 TABLET BY MOUTH DAILY Start Date: 11/14/15 Status: Ordered losartan 50 mg oral tablet See Instructions, TAKE 1 TABLET BY MOUTH DAILY, # 90 tabs, 1 Refill(s), eRx: [facility] Start Date: 06/10/16 Status: Ordered multivitamin 1 tabs, Oral, Daily, 0 Refill(s) Start Date: 11/13/13 Status: Ordered Nitrostat 0.4 mg sublingual tablet 1 tabs, SubLingual, q5min, as needed for chest pain, not to exceed 3 doses/15 min--if pain persists, seek medical attention, # 30 tabs, 11 Refill(s), Pharmacy : [facility], 1 tabs SubLingual q5min,PRN:as needed for chest pain,Instr: not to exceed... Start Date: 07/11/14 Status: Ordered pantoprazole 40 mg oral delayed release tablet 40 mg 1 tabs, Oral, Daily, # 30 tabs, 11 Refill(s), Pharmacy: [facility] , 1 tabs Oral Daily Start Date: 04/28/16 Status: Ordered Saw [place] oral capsule 450 mg, Oral, BID, 0 Refill(s) Start Date: 11/13/13 Status: Ordered triamcinolone 0.1% topical ointment 1 viviane, Topical, BID, as needed for psoriasis, # 30 g, 11 Refill(s), Pharmacy: [facility] Start Date: 05/28/16 Status: Ordered Vitamin B Complex oral capsule 1 caps, Oral, Daily, 0 Refill(s) Start Date: 07/11/14 Status: Ordered Vitamin D3 1000 intl units oral capsule 1 caps, Oral, Daily, 0 Refill(s) Start Date: 11/13/13 Status: Ordered Results Hematology Most recent to 1 oldest [Reference Range]: WBC [4.8-10.8 5.8 10*3/uL 10*3/uL] (08/05/16 12:13 PM) RBC [4.60-6.20] 4.51 *LOW* (08/05/16 12:13 PM) Hgb [14.0-18.0 14.2 gm/dL gm/dL] (08/05/16 12:13 PM) Hct [42.0-52.0 %] 41.9 % *LOW* (08/05/16:13 PM) MCV [82.0-99.0 fL] 92.9 fL (08/05/16:13 PM) MCH [27.0-32.0 pg] 31.5 pg (08/05/16:13 PM) MCHC [32.0-36.0 33.9 gm/dL gm/dL] (08/05/16:13 PM) RDW [11.5-14.5 %] 12.6 % (08/05/16 12:13 PM) Platelet [150-400 392 10*3/uL 10*3/uL] (08/05/16:13 PM) MPV [8.8-14.8 fL] 9.2 fL (08/05/16:13 PM) Immature 0.2 % Granulocytes (08/05/16: PM) [0.0-1.0 %] Neutrophils [51-75 51 % %] (08/05/16:13 PM) Lymphocytes [20-46 35 % %] (08/05/16:13 PM) Monocytes [4-11 %] 11 % (08/05/16:13 PM) Eosinophils [0-4 %] 1 % (08/05/16:13 PM) Basophils [0-2 %] 1 % (08/05/16:13 PM) Neutro Absolute 2.97 [1.90-7.00] (08/05/16 12:13 PM) Lymph Absolute 2.05 [0.80-3.30] (08/05/16 12:13 PM) Lynn Absolute 0.65 [0.30-1.00] (08/05/16 12:13 PM) Eos Absolute 0.08 [0.00-0.50] (08/05/16 12:13 PM) Baso Absolute 0.05 [0.00-0.20] (08/05/16 12:13 PM) Chemistry Most recent to 1 oldest [Reference Range]: Sodium Lvl [135-144 140 mEq/L mEq/L] (08/05/16 12:13 PM) Potassium Lvl 4.8 mEq/L [3.5-5.2 mEq/L] (08/05/16 12:13 PM) Chloride [99-111 105 mEq/L mEq/L] (08/05/16 12:13 PM) CO2 [23-31 mEq/L] 27 mEq/L (08/05/16 12:13 PM) AGAP [3-20] 8 (08/05/16:13 PM) BUN [8-26 mg/dL] 12 mg/dL (08/05/16 12:13 PM) Glucose Lvl [70-99 90 mg/dL mg/dL] (08/05/16:13 PM) Creatinine Lvl 0.87 mg/dL [0.72-1.25 mg/dL] (08/05/16:13 PM) eGFR [>60 mL/min] >60 mL/min 1 (08/05/16: PM) Calcium Lvl 10.0 mg/dL 2 [8.4-10.2 mg/dL] (08/05/16 12:13 PM) Albumin Lvl [3.4-4.8 4.4 gm/dL gm/dL] (08/05/16 12:13 PM) Total Protein 7.7 gm/dL [6.0-7.6 gm/dL] *HI* (08/05/16 12:13 PM) Globulin [1.8-4.0 3.3 gm/dL gm/dL] (08/05/16 12:13 PM) ALT [0-55 U/L] 24 U/L (08/05/16 12:13 PM) AST [5-34 U/L] 24 U/L (08/05/16 12:13 PM) Alk Phos [40-150 71 U/L U/L] (08/05/16 12:13 PM) Bili Total [0.2-1.2 0.7 mg/dL mg/dL] (08/05/16 12:13 PM) 1Result Comment: Multiply eGFR results by 1.21 for race. 2Result Comment: Please note reference range change effective 07/18/2016. Immunizations Given and Recorded Vaccine Date Status Refusal Reason hepatitis A-hepatitis B vaccine 10/16/13 Given hepatitis A-hepatitis B vaccine 09/28/12 Given hepatitis A-hepatitis B vaccine 07/30/12 Given influenza virus vaccine, live 06/30/13 Given pneumococcal 13-valent conjugate vaccine1 07/30/12 Given pneumococcal 23-polyvalent vaccine 07/30/12 Given tetanus/diphtheria/pertussis, acel(Tdap) 06/25/11 Recorded zoster vaccine live 09/08/14 Given 1Result Comment: [02/08/2015 Uncharted] Uploaded in Error - CC Procedures Procedure Date Related Diagnosis Body Site Collection of venous blood by venipuncture 08/05/16 Spinal fusion1 01/10/16 Left L4-5/L5-S1 Transferaminal 12/12/15 Bilateral L5-S1 Transforaminal 10/02/15 Right T10-11/T11-12 Facet 03/26/15 Colonoscopy normal2 11/20/14 Esophagogastroduodenoscopy and biopsy3 11/20/14 L5-S1 Translaminar 09/19/14 Rigth Thoracic Mid-Level Facet 09/05/14 Excision of mucous cyst with local rotation 10/27/13 flat, LT MF Cardiac catheterization 08/01/11 Stent placement, cardiac 08/01/11 Angioplasty 2011 Cholecystectomy 2011 Percutaneous coronary intervention 2011 Angioplasty 01/2010 Percutaneous coronary intervention 2009 Stent placement 2009 CABG 03/2009 Colonoscopy4 06/22/07 Esophagogastroduodenoscopy5 06/22/07 Colonoscopy 2005 Colonoscopy normal6 1998 Esophagogastroduodenoscopy7 1998 Vasectomy 1990 Tonsillectomy and adenoidectomy 1956 Circumcision 1952 Laparoscopic cholecystectomy 1C3-4 fusion 2Normal colonoscopy, repeat in 10 years 3Mild esophagitis, no Sinha's 4normal 52small polyps removed unremarkable 6normal 7normal Social History Social History Type Response Smoking Status Never smoker Assessment and Plan Extracted from: Title: Ambulatory Patient Education Author: Leobardo Gallegos MD Date: 08/05 Emergency Medicine Acute Bronchitis Bronchitis is inflammation of the airways that extend from the windpipe into the lungs (bronchi). The inflammation often causes mucus to develop. This leads to a cough, which is the most common symptom of bronchitis. In acute bronchitis, the condition usually develops suddenly and goes away over time, usually in a couple weeks. Smoking, allergies, and asthma can make bronchitis worse. Repeated episodes of bronchitis may cause further lung problems. CAUSES Acute bronchitis is most often caused by the same virus that causes a cold. The virus can spread from person to person (contagious) through coughing, sneezing, and touching contaminated objects. SIGNS AND SYMPTOMS Cough. Fever. Coughing up mucus. Body aches. Chest congestion. Chills. Shortness of breath. Sore throat. DIAGNOSIS Acute bronchitis is usually diagnosed through a physical exam. Your health care provider will also ask you questions about your medical history. Tests, such as chest X-rays, are sometimes done to rule out other conditions. TREATMENT Acute bronchitis usually goes away in a couple weeks. Oftentimes, no medical treatment is necessary. Medicines are sometimes given for relief of fever or cough. Antibiotic medicines are usually not needed but may be prescribed in certain situations. In some cases, an inhaler may be recommended to help reduce shortness of breath and control the cough. A cool mist vaporizer may also be used to help thin bronchial secretions and make it easier to clear the chest. HOME CARE INSTRUCTIONS Get plenty of rest. Drink enough fluids to keep your urine clear or pale yellow (unless you have a medical condition that requires fluid restriction). Increasing fluids may help thin your respiratory secretions (sputum) and reduce chest congestion, and it will prevent dehydration. Take medicines only as directed by your health care provider. If you were prescribed an antibiotic medicine, finish it all even if you start to feel better. Avoid smoking and secondhand smoke. Exposure to cigarette smoke or irritating chemicals will make bronchitis worse. If you are a smoker, consider using nicotine gum or skin patches to help control withdrawal symptoms. Quitting smoking will help your lungs heal faster. Reduce the chances of another bout of acute bronchitis by washing your hands frequently, avoiding people with cold symptoms, and trying not to touch your hands to your mouth, nose, or eyes. Keep all follow-up visits as directed by your health care provider. SEEK MEDICAL CARE IF: Your symptoms do not improve after 1 week of treatment. SEEK IMMEDIATE MEDICAL CARE IF: You develop an increased fever or chills. You have chest pain. You have severe shortness of breath. You have bloody sputum. You develop dehydration. You faint or repeatedly feel like you are going to pass out. You develop repeated vomiting. You develop a severe headache. MAKE SURE YOU: Understand these instructions. Will watch your condition. Will get help right away if you are not doing well or get worse. This information is not intended to replace advice given to you by your health care provider. Make sure you discuss any questions you have with your health care provider. Document Released: 07/09/2005 Document Revised: 06/22/2015 Document Reviewed: [employer] Patient Education 2016 [employer] Preventive Medicine Health Maintenance, Male A healthy lifestyle and preventative care can [...] for people who have at least a 18-wpno-jrug history of smoking and are current smokers or have quit within the past 15 years. A pack year of smoking is smoking an average of 1 pack of cigarettes a day for 1 year (for example, a 63-rgmh-hpuk history of smoking could mean smoking 1 [...] disease and increases the risk of stroke. High blood pressure is more likely to develop in: People who have blood pressure in the end of the normal range (266023/ 8589 mm Hg). People who are overweight or obese. People who are . If you are 1839 years of age, have your blood pressure checked every 3 5 years. If you are 40 years of age or older, have your blood pressure checked every year. You should have your blood pressure measured twiceonce when you are at a hospital or clinic, and once when you are not at a hospital or clinic. Record the average of the two measurements. To check your blood pressure when you are not at a hospital or clinic, you can use: An automated blood pressure machine at a pharmacy. A home blood pressure monitor. If you are 4579 years old, ask [...] care provider. Document Released: 11/27/2008 Document Revised: 06/22/2015 Document Reviewed: [employer] Patient Education 2016 [employer] No follow up information was provided. Extracted from: Title: Male physical Author: Leobardo Gallegos MD Date: 08/05/16 Impression and Plan Diagnosis Acute bronchitis (AEF75-ZZ J20.9, Discharge, Medical). CAD (coronary artery disease) (OEZ08-BL I25.10, Discharge, Medical). Benign essential hypertension (UUF70-DF I10, Discharge, Medical). Primary hypercholesterolemia (JPY19-WN E78.00, Discharge, Medical). Bilateral primary osteoarthritis of hip (MEK88-KI M16.0, Discharge, Medical). Gastroesophageal reflux disease (MDQ11-SV K21.9, Discharge, Medical). Chronic thoracic back pain (QGS58-UK M54.6, Discharge, Medical). Well adult exam (GXY63-ID Z00.00, Discharge, Medical). Plan: 1) Healthy diet and daily exercise helps most things. 2) Immunizations reviewed. You refused the flu shot. 3) CXR ordered. No pneumonia was seen. 4) Lab ordered today. 5) You have medical clearance for right total hip replacement surgery if your lab and CXR look OK, and if you get cardiac clearance. 6) See me in 6 months and as needed. 7) Continue your present meds.. Orders Orders (Selected) Outpatient Orders Ordered Periodic Comp Preventive Med 40 to 64 years Est 37[address]: Future (On Hold) CBC w/ Differential: CMP: Chest XR 2 Views: . Dx/Order Association Plan: Diagnosis: Acute bronchitis Comment: Diagnosis: Benign essential hypertension Comment: Diagnosis: Bilateral primary osteoarthritis of hip Comment: Diagnosis: CAD (coronary artery disease) Comment: Diagnosis: Chronic thoracic back pain Comment: Diagnosis: Gastroesophageal reflux disease Comment: Diagnosis: Primary hypercholesterolemia Comment: Diagnosis: Well adult exam Comment: Ordered: Periodic Comp Preventive Med 40 to 64 years Est 15224; 11:43:00 DIGITAL ACCOUNT DIRECTOR, Well adult exam Diagnosis: Benign essential hypertension Comment: Diagnosis: CAD (coronary artery disease) Comment: Diagnosis: Acute bronchitis Comment: Diagnosis: Acute bronchitis Comment: End of Orders .
--- OUTSIDE RECORDS SUMMARY | 2016-09-23 09:30 | XMS REPORT | Referral Summary ---
Author Author [facility] Organization [facility] Address Unknown Phone Unavailable Care Team Providers Care Automotive Welder Name Role Phone Maliha Gallegos Primary Care Physician [phone] Encounter [facility] [id number] Date(s): 11/28/14 - 11/28/14 [facility] [address] [place], [place] [address] Discharge Diagnosis: Hip pain Discharge Diagnosis: [...] Daily, # 90 tabs, 3 Refill(s), Pharmacy: [facility], 1 tabs Oral Daily,x90 days Start Date: 07/11/14 Stop Date: 07/06/15 Status: Ordered cholestyramine 4 g/5 g oral powder for reconstitution 1 packets, Oral, Daily, dissolve in 6 to 8 ounces of water; may increase to 2-3 packets in water daily;, # 60 Each, 11 Refill(s), Pharmacy: [facility], 1 packets Oral Daily,Instr:dissolve in 6 to 8 ounces of water; may increase to 2 -3 packets i... Start Date: 11/18/13 Status: Ordered citalopram 20 mg oral tablet 0.5 tabs, Oral, Daily, X 90 days, # 45 tabs, 3 Refill(s), Pharmacy: [facility], Instruct patient to schedule a complete physical with Dr. Gallegos, 0.5 tabs Oral Daily,x90 days Start Date: 07/11/14 Stop Date: 07/06/15 Status: Ordered clopidogrel 75 mg oral tablet 1 tabs, Oral, Daily, # 90 tabs, 3 Refill(s), Pharmacy: [facility], 1 tabs Oral Daily,x90 days [...] # 3 Each, 3 Refill(s), Pharmacy : [facility] Start Date: 07/11/14 Status: Ordered gabapentin 300 mg oral capsule 1 caps, Oral, Bedtime (once a day), # 90 caps, 3 Refill(s), Pharmacy: [facility], instruct patient to schedule a complete physical with Dr. Gallegos., 1 caps Oral Bedtime (once a day),x90 days Start Date: 07/11/14 Stop Date: 07/06/15 Status: Ordered Glucosamine & Chondroitin with MSM tabs, Oral, BID, 0 Refill(s) Start Date: 11/18/13 Status: Ordered Livalo 4 mg oral tablet 1 tabs, Oral, Daily, # 90 tabs, 3 Refill(s), Pharmacy: [facility], Instruct patient to schedule a complete physical with Dr. Gallegos, 1 tabs Oral Daily,x90 days Start Date: 07/11/14 Stop Date: 07/06/15 Status: Ordered losartan 50 mg oral tablet 1 tabs, Oral, Daily, # 90 tabs, 3 Refill(s), Pharmacy: [facility], instruct patient to schedule a [...] exceed... Start Date: 07/11/14 Status: Ordered Saw [place] oral capsule 450 mg, Oral, BID, 0 [...] pain, # 100 g, 0 Refill(s), Pharmacy: [facility] Start Date: 04/04/15 Status: Ordered [...]
--- OUTSIDE RECORDS SUMMARY | 2016-09-23 09:30 | XMS REPORT | Referral Summary ---
Author Author [facility] Organization [facility] Address Unknown Phone Unavailable Care Team Providers Care Afterschool Name Role Phone Maliha Gallegos Primary Care Physician [phone] Encounter [facility] Date(s): 11/20/14 - 11/20/14 [facility] [address] [place] [address] [place] [address] [place] Discharge Disposition: 01-Home or Self Care Attending Physician: Ismael Shnie MD Admitting Physician: Ismael Shine MD Vital Signs No data available for this section Problem List Condition Effective Dates Status Health [...] daily;, # 60 Each, 11 Refill(s), Pharmacy: [facility], 1 packets Oral Daily,Instr:dissolve in 6 to 8 ounces of water; may increase to 2 -3 packets i... Start Date: 11/18/13 Status: Ordered citalopram 20 mg oral tablet 10 mg 0.5 tabs, Oral, Daily, # 45 tabs, 0 Refill(s), Pharmacy: [facility] , 0.5 tabs Oral Daily Start Date: 06/01/15 Status: Ordered clopidogrel 75 mg oral tablet 75 mg 1 tabs, Oral, Daily, # 90 tabs, 0 Refill(s), Pharmacy: [facility], 1 tabs Oral Daily Start Date: [...] # 3 Each, 3 Refill(s), Pharmacy : [facility] Start Date: 07/11/14 Status: Ordered gabapentin 300 mg oral capsule 300 mg 1 caps, Oral, Bedtime (once a day), # 90 caps, 0 Refill(s), Pharmacy: [facility], 1 caps Oral Bedtime (once a day) Start Date: 06/01/15 Status: Ordered Glucosamine & Chondroitin with MSM tabs, Oral, BID, 0 Refill(s) Start Date: 11/18/13 Status: Ordered Livalo 4 mg oral tablet 4 mg 1 tabs, Oral, Daily, # 90 tabs, 0 Refill(s), Pharmacy: [facility], 1 tabs Oral Daily Start Date: 06/01/15 Status: Ordered losartan 50 mg oral tablet 50 mg 1 tabs, Oral, Daily, # 90 tabs, 0 Refill(s), Pharmacy: [facility], 1 tabs Oral Daily Start Date: [...] exceed... Start Date: 07/11/14 Status: Ordered Saw [place] oral capsule 450 mg, Oral, BID, 0 [...] pain, # 100 g, 0 Refill(s), Pharmacy: [facility] Start Date: 04/04/15 Status: Ordered [...] Right T10-11/T11-12 Facet 03/26/15 Colonoscopy normal1 11/20/14 Colonoscopy, flexible; diagnostic, including 11/20/14 collection of specimen(s) by brushing or washing, when performed (separate procedure) Esophagogastroduodenoscopy and biopsy2 11/20/14 Esophagogastroduodenoscopy, flexible, 11/20/14 transoral; with biopsy, single or multiple Esophagogastroduodenoscopy, flexible, 11/20/14 transoral; with transendoscopic balloon dilation of esophagus (less than 30 mm diameter) L5-S1 Translaminar 09/19/14 Rigth Thoracic Mid-Level Facet [...]
--- OUTSIDE RECORDS SUMMARY | 2016-09-23 09:30 | XMS REPORT | Continuity of Care Document ---
Author Author Eddy MATUTE, Marian Kat Organization Ambulatory Address [address] [place] [address] Phone Care Team Providers Care Linux Network Engineer Name Role Phone Leobardo Gallegos PP Unavailable Payers Payer name Insurance type Covered republican ID Authorization(s) Unknown Problems Condition Effective Dates (start - stop) Clinical Status Acute gastritis - Improved Tennis elbow - *Acute CAD (coronary artery disease) - *Stable Hypertension - *Controlled Hypercholesterolemia - *Chronic Coronary atherosclerosis of unspecified type of vessel, tribe or graft - *Chronic Unspecified essential hypertension [...] Coronary atherosclerosis of unspecified type of vessel, tribe or graft - *Chronic Acute sinusitis, unspecified [...] PNEUMONIA, ORGANISM NOS - OTHER PSORIASIS - Cyst of finger - *Symptomatic Dermatitis - [...] Dosage Effective Dates (start - stop) Status Protonix 40 mg tablet,delayed release Take 1 tablet by mouth daily, - Aug No Longer Active multivitamin tablet take 1 [...] 1 tablet by mouth daily, - Active [place] 5 mg-325 mg tablet take 1 - [...] Height Weight Pulse Rate Blood Pressure Temperature /08:28:00 73.00 in 200.00 lbs 68 /min 120/72 mm[Hg] 96.5 F Procedures Procedure Date Unknown Encounters Encounter Location Date Patient Visit [facility] Patient Visit [facility] Patient Visit [facility] Patient Visit [facility] Patient Visit [facility] Patient Visit [facility] Patient Visit [facility] Patient Visit [facility] Patient Visit [facility] Patient Visit [facility] Patient Visit [facility] Patient Visit [facility] Patient [facility] Patient Visit [facility] Patient Visit [facility] Patient Visit [facility] Patient Visit [facility] Patient Visit [facility] Patient Visit [facility] Patient Visit [facility] Patient Visit [facility] Patient Visit [facility] Advance Directives Directive Effective Date Unknown
--- OUTSIDE RECORDS SUMMARY | 2016-09-23 09:30 | XMS REPORT | Referral Summary ---
Author Author [facility], Family Medicine Organization [facility] Address Unknown Phone Unavailable Care Team Providers Care Plastic Bubble Packer Name Role Phone Maliha Gallegos Primary Care Physician [phone] Encounter VC Date(s): 07/12/15 - 07/12/15 [facility], [address] [place] [address] Discharge Disposition: 01-Home or Self Care Attending Physician: Leobardo Gallegos MD Admitting Physician: Leobardo Gallegos MD Vital Signs Most recent to 1 oldest [Reference Range]: Temperature Tympanic 36.0 degC [36.6-38.1 degC] *LOW* (07/12/15 11:00 AM) Peripheral Pulse 52 bpm Rate [60-100 bpm] *LOW* (07/12/15 11:00 AM) Blood Pressure 116/70 mmHg [90-140/60-90 mmHg] (07/12/15 11:00 AM) SpO2 98 % (07/12/15 11:00 AM) Problem List Condition Effective Dates Status [...] Daily, # 90 tabs, 3 Refill(s), Pharmacy: [facility], 1 tabs Oral Daily,x90 days Start Date: 07/11/14 Stop Date: 07/06/15 Status: Ordered cholestyramine 4 g/5 g oral powder for reconstitution 1 packets, Oral, Daily, dissolve in 6 to 8 ounces of water; may increase to 2-3 packets in water daily;, # 60 Each, 11 Refill(s), Pharmacy: [facility], 1 packets Oral Daily,Instr:dissolve in 6 to 8 ounces of water; may increase to 2 -3 packets i... Start Date: 11/18/13 Status: Ordered citalopram 20 mg oral tablet 10 mg 0.5 tabs, Oral, Daily, # 45 tabs, 0 Refill(s), Pharmacy: [facility] , 0.5 tabs Oral Daily Start Date: 06/01/15 Status: Ordered clopidogrel 75 mg oral tablet 75 mg 1 tabs, Oral, Daily, # 90 tabs, 0 Refill(s), Pharmacy: [facility], 1 tabs Oral Daily Start Date: 06/01/15 Status: Ordered Co-Q10 200 mg oral capsule 1 caps, Oral, Daily, # 30 caps, 0 Refill(s) Start Date: 11/18/13 Status: Ordered famotidine 40 mg oral tablet 40 mg 1 tabs, Oral, Bedtime (once a day), # 30 tabs, 5 Refill(s), Pharmacy: [facility], 1 tabs Oral Bedtime (once a day) Start Date: 07/12/15 Status: Ordered Fish Oil 1200 mg oral capsule 2 caps, Oral, BID, 0 Refill(s) Start Date: 07/11/14 Status: Ordered Flonase 50 mcg/inh nasal spray 2 sprays, Nasal, Daily, as needed for allergies, # 3 Each, 3 Refill(s), Pharmacy : [facility] Start Date: 07/11/14 Status: Ordered gabapentin 300 mg oral capsule 300 mg 1 caps, Oral, Bedtime (once a day), # 90 caps, 0 Refill(s), Pharmacy: [facility], 1 caps Oral Bedtime (once a day) Start Date: 06/01/15 Status: Ordered Glucosamine & Chondroitin with MSM tabs, Oral, BID, 0 Refill(s) Start Date: 11/18/13 Status: Ordered Livalo 4 mg oral tablet 4 mg 1 tabs, Oral, Daily, # 90 tabs, 0 Refill(s), Pharmacy: [facility], 1 tabs Oral Daily Start Date: 06/01/15 Status: Ordered losartan 50 mg oral tablet 50 mg 1 tabs, Oral, Daily, # 90 tabs, 0 Refill(s), Pharmacy: [facility], 1 tabs Oral Daily Start Date: 06/01/15 Status: Ordered multivitamin 1 tabs, Oral, Daily, 0 Refill(s) Start Date: 11/13/13 Status: Ordered Nitrostat 0.4 mg sublingual tablet 1 tabs, SubLingual, q5min, as needed for chest pain, not to exceed 3 doses/15 min--if pain persists, seek medical attention, # 30 tabs, 11 Refill(s), Pharmacy : [facility], 1 tabs SubLingual q5min,PRN:as needed for chest pain,Instr: not to exceed... Start Date: 07/11/14 Status: Ordered Saw [place] oral capsule 450 mg, Oral, BID, 0 [...] pain, # 100 g, 0 Refill(s), Pharmacy: [facility] Start Date: 04/04/15 Status: [...] Patient Education Author: Leobardo Gallegos MD Date: 07/12 Family Medicine Back Pain, Adult Low back pain is [...] ligaments supporting the spine. Wear and tear (degeneration) of the spinal discs. Arthritis. Direct injury [...] stressful on the back to sit or machine ii engraver one place. Do not sit, drive, or machine ii engraver one place for more than 30 minutes [...] a pillow under your knees. Only take dyqv-vgf-wpfsfom or prescription medicines as directed by your caregiver. Awtc-mkf-wpzhnsa medicines to reduce pain and inflammation are often the most helpful.Your caregiver may prescribe muscle relaxant drugs.These medicines help dull your pain so you can more quickly return to your normal activities and healthy exercise. Put ice on the injured area. Put ice in a plastic bag. Place a towel between your skin and the bag. Leave the ice on for 15-20 minutes, 03-04 times a day for the first 2 [...] Released: 06/01/2006 Document Revised: 11/30/2012 Document Reviewed: [facility] Patient Information 2015 [place]. This information is not intended to replace advice given to you by your health care provider. Make sure you discuss any questions you have with your health care provider. No follow up information was provided. Extracted from: Title: CAD, cervical spinal Author: Leobardo Gallegos MD Date: 07/12/15 stenosis, HTN Impression and Plan Diagnosis Cervical spinal stenosis (SYY23-GN M48.02, Working, Medical). Left shoulder pain (XGA96-EM M25.512, Working, Medical). Thoracic back pain (WHG71-SE M54.6, Working, Medical). Chronic radicular low back pain (JYO60-OY M54.16, Working, Medical). Osteoarthritis of right hip (BTN26-XO M16.11, Working, Medical). Essential hypertension (disorder) (AKY54-IO I10, Working, Medical). Coronary atherosclerosis (JJW12-YD I25.10, Working, Medical). GERD (gastroesophageal reflux disease) (EPT35-NE K21.9, Working, Medical). Spinal stenosis, lumbar region, without neurogenic claudication (RQW41-TE M48.06 , Working, Medical). Plan: 1) Take Famotidine daily at bedtime, as needed for GERD--heartburn. 2) May continue your routine meds. 3) May be off the Plavix for 7 days, as requested, for cortisone pain shots in the neck (or elsewhere, as needed). 4) Followup as needed.. Orders Orders (Selected) Outpatient Orders Ordered Office Visit Level 4 Est 65953: Prescriptions Prescribed famotidine 40 mg oral tablet: 40 mg=1 tabs, Oral, Bedtime (once a day), 30 tabs , 5 Refill(s). Dx/Order Association Plan: Diagnosis: Cervical spinal stenosis Comment: Ordered: Office Visit Level 4 Est 38044; 07/12/15 11:48:00 CUSTOMS BROKER, Coronary atherosclerosis | Essential hypertension (disorder) | GERD ( gastroesophageal reflux disease) | Cervical spinal stenosis Diagnosis: Chronic radicular low back pain Comment: Diagnosis: Coronary atherosclerosis Comment: Ordered: Office Visit Level 4 Est 26502; 07/12/15 11:48:00 CUSTOMS BROKER, Coronary atherosclerosis | Essential hypertension (disorder) | GERD ( gastroesophageal reflux disease) | Cervical spinal stenosis Diagnosis: Essential hypertension (disorder) Comment: Ordered: Office Visit Level 4 Est 76781; 07/12/15 11:48:00 CUSTOMS BROKER, Coronary atherosclerosis | Essential hypertension (disorder) | GERD ( gastroesophageal reflux disease) | Cervical spinal stenosis Diagnosis: GERD (gastroesophageal reflux disease) Comment: Ordered: Office Visit Level 4 Est 33785; 07/12/15 11:48:00 CUSTOMS BROKER, Coronary atherosclerosis | Essential hypertension (disorder) | GERD ( gastroesophageal reflux disease) | Cervical spinal stenosis Diagnosis: Left shoulder pain Comment: Diagnosis: Osteoarthritis of right hip Comment: Diagnosis: Spinal stenosis, lumbar region, without neurogenic claudication Comment: Diagnosis: Thoracic back pain Comment: Additional Orders: Comment: Ordered: famotidine 40 mg oral tablet,40 mg 1 tabs, Oral, Bedtime ( once a day), # 30 tabs, 5 Refill(s), Pharmacy: [facility], 1 tabs Oral Bedtime (once a day) End of Orders ."
--- OUTSIDE RECORDS SUMMARY | 2016-09-23 09:30 | XMS REPORT | Referral Summary ---
Author Author [facility] Organization [facility] Address Unknown Phone Unavailable Care Team Providers Care Bronzer Name Role Phone Mailha Gallegos Primary Care Physician [phone] Encounter VC Date(s): 10/20/14 - 10/20/14 [facility], Surgery [address] [place] [address] [place] [id number] Discharge Diagnosis: Dysphagia Discharge Diagnosis: Family history [...] Daily, # 90 tabs, 3 Refill(s), Pharmacy: [facility], 1 tabs Oral Daily,x90 days Start Date: 07/11/14 Stop Date: 07/06/15 Status: Ordered cholestyramine 4 g/5 g oral powder for reconstitution 1 packets, Oral, Daily, dissolve in 6 to 8 ounces of water; may increase to 2-3 packets in water daily;, # 60 Each, 11 Refill(s), Pharmacy: [facility], 1 packets Oral Daily,Instr:dissolve in 6 [...] exceed... Start Date: 07/11/14 Status: Ordered Saw [place] oral capsule 450 mg, Oral, BID, 0 [...] Released: 05/29/2001 Document Revised: 02/01/2014 Document Reviewed: [facility] Patient Information 2014 [place]. No follow up information was provided. Extracted from: Title: Office Visit Note Author: Ismael Shine MD Date: 10/20/14 Assessment/Plan Dysphagia Ordered: Office Visit Level 4 New 29813 Family history of esophageal cancer Ordered: Office Visit Level 4 New 56082 Plan: EGD possible dilatation. Hemoccult cards. If [...]
--- OUTSIDE RECORDS SUMMARY | 2016-09-23 09:30 | XMS REPORT | Referral Summary ---
Author Organization Unknown Address Unknown Phone Unavailable Care Team Providers Care Financial Service Rep Name Role Phone Maliha Gallegos Primary Care Physician [phone] Encounter VC Date(s): 07/18/14 - 07/18/14 [facility], [facility], Pain Management [address] [place], [place] [address] Discharge Diagnosis: Lumbar radiculopathy Discharge Diagnosis: Lumbar disc herniation Discharge Diagnosis: DDD (degenerative disc disease), lumbar Discharge Diagnosis: Acute lumbar back pain Discharge Diagnosis: Spinal stenosis, lumbar region, without neurogenic claudication Discharge Diagnosis: Lumbar spondylosis Discharge Diagnosis: Mid back pain Discharge Disposition: Home or Self Care Attending Physician: Lui Siu MD Admitting Physician: Lui Siu MD Referring Physician: Leobardo Gallegos MD Vital Signs Most recent to 1 oldest [Reference Range]: Blood Pressure 128/64 mmHg [90-140/60-90 mmHg] (07/18/14 3:19 PM) Problem List Condition Effective Dates Status [...] Daily, # 90 tabs, 3 Refill(s), Pharmacy: [facility], 1 tabs Oral Daily,x90 days Start Date: 07/11/14 Stop Date: 07/06/15 Status: Ordered cholestyramine 4 g/5 g oral powder for reconstitution 1 packets, Oral, Daily, dissolve in 6 to 8 ounces of water; may increase to 2-3 packets in water daily;, # 60 Each, 11 Refill(s), Pharmacy: [facility], 1 packets Oral Daily,Instr:dissolve in 6 to 8 ounces of water; may increase to 2 -3 packets i... Special Instructions: dissolve in 6 to 8 ounces of water; may increase to 2-3 packets in water daily; Start Date: 11/18/13 Status: Ordered citalopram 20 mg oral tablet 0.5 tabs, Oral, Daily, X 90 days, # 45 tabs, 3 Refill(s), Pharmacy: [facility], Instruct patient to schedule a complete physical with Dr. Gallegos, 0.5 tabs Oral Daily,x90 days Start Date: 07/11/14 Stop Date: 07/06/15 Status: Ordered clopidogrel 75 mg oral tablet 1 tabs, Oral, Daily, # 90 tabs, 3 Refill(s), Pharmacy: [facility], 1 tabs Oral Daily,x90 days Start [...] # 3 Each, 3 Refill(s), Pharmacy : [facility] Start Date: 07/11/14 Status: Ordered gabapentin 300 mg oral capsule 1 caps, Oral, Bedtime (once a day), # 90 caps, 3 Refill(s), Pharmacy: [facility], instruct patient to schedule a complete physical with Dr. Gallegos., 1 caps Oral Bedtime (once a day),x90 days Start Date: 07/11/14 Stop Date: 07/06/15 Status: Ordered Glucosamine & Chondroitin with MSM tabs, Oral, BID, 0 Refill(s) Start Date: 11/18/13 Status: Ordered Livalo 4 mg oral tablet 1 tabs, Oral, Daily, # 90 tabs, 3 Refill(s), Pharmacy: [facility], Instruct patient to schedule a complete physical with Dr. Gallegos, 1 tabs Oral Daily,x90 days Start Date: 07/11/14 Stop Date: 07/06/15 Status: Ordered losartan 50 mg oral tablet 1 tabs, Oral, Daily, # 90 tabs, 3 Refill(s), Pharmacy: [facility], instruct patient to schedule [...] # 30 tabs, 11 Refill(s), Pharmacy : [facility], 1 tabs SubLingual q5min,PRN:as needed for chest pain,Instr: not to exceed... Special Instructions: not to exceed 3 doses/15 min--if pain persists, seek medical attention Start Date: 07/11/14 Status: Ordered Saw [place] oral capsule 450 mg, Oral, BID, [...] Extracted from: Title: Office Visit Note Author: Lui Siu MD Date: 07/18/14 Assessment/Plan Acute lumbar back pain Ordered: Internal Referral to Physical Therapy DDD (degenerative disc disease), lumbar Ordered: Internal Referral to Physical Therapy Lumbar disc herniation Ordered: Internal Referral to Physical Therapy Lumbar radiculopathy Ordered: Internal Referral to Physical Therapy Lumbar spondylosis Ordered: Internal Referral to Physical Therapy Mid back pain Ordered: Internal Referral to Physical Therapy Spinal stenosis, lumbar region, without neurogenic claudication RECOMMENDATIONS: I explained to the patient that she has lumbar disc herniation and stenosis which is causing his bilateral L5 radiculopathy. His mid back pain as suspect is due to thoracic disc herniation. This correlates with the MRI of his lumbar spine which shows disc herniation at L5-S1 with foraminal encroachment and spinal central stenosis at L4 5. I ordered an MRI of his thoracic spine and he wishes to go for physical therapy as the first treatment option which I think is a good idea and I written him a prescription for physical therapy All questions were answered. I shall see the patient back for reassessment following completion of his therapy with his investigations. Ordered: Internal Referral to Physical Therapy Orders: MRI Spine Thoracic w/o Contrast Referrals to Other Providers Acute midback pain, lumbar disc herniation with bilateral lower extremity radiculopathy Referred by: Lui Siu MD
--- NOTE | 2016-09-23 09:38 | ANESPREOP ---
Anesthesia Record Date and Time DATE: 09/23/16 TIME: 09:36 Pre-Op Diagnosis Right hip degeneration Proposed Surgical Procedure RT RACHELE NPO since: Midnight Allergies: Coded Allergies: lovastatin (Verified Allergy, Unknown, 11/17/14) simvastatin (Verified Allergy, Unknown, 11/17/14) lisinopril (Verified Adverse Reaction, Unknown, COUGH, 08/13/16) Ht/Wt/BMI Height: 6 ' 1.00 " Weight: 89.100 kg BMI: 25.9 kg/m2 Vital Signs Date Time Temp Pulse Resp B/P Pulse Ox O2 Delivery O2 Flow Rate FiO2 09/23/16 09:33 97.8 62 14 154/74 100 Room Air Medications Inpatient Medications Current Medications Medications (Trade) Dose Ordered Sig/Pierre Start Time Stop Time Status Last Admin Dose Admin Lactated Ringer's (Lactated Ringers) 1,000 ml @ 50 mls/hr Q20H 09/23/16 07:00 Amlodipine Besylate (Amlodipine Besylate) 2.5 Mg Tablet, 1 TAB PO WS, (Reported) Cholecalciferol (Vitamin D3) (Vitamin D3) 1,000 Unit Capsule, 1 CAP PO DAILY, ( Reported) Clopidogrel Bisulfate (Clopidogrel) 75 Mg Tablet, 1 TAB PO WS, (Reported) Last Taken: on 09/15/16 Fluticasone Propionate (Flonase Allergy Relief 50 mcg/actuation Nasal) 9.9 Ml [place].susp, 2 SPRAY EA NOSTRIL DAILY PRN for ALLERY SYMPTOMS, (Reported) Gabapentin (Gabapentin) 300 Mg Capsule, 1 CAP PO HS, (Reported) Glucosamine/MSM/Chondroitin A (Glucosamine Chondroit MSM Tab) 1 Each Tablet, 1 TAB PO BID, (Reported) Last Taken: on 09/15/16 Losartan Potassium (Losartan Potassium) 50 Mg Tablet , 1 TAB PO WS, (Reported) Multivitamin (Multi-Vitamin Daily) 1 Each Tablet, 1 TAB PO DAILY, (Reported) Nitroglycerin (Nitrostat) 0.4 Mg Tablet, 0.4 MG SL Q5MIN PRN for CHEST PAIN, ( Reported) NOT TO EXCEED 3 DOSES/15 MIN. IF PAIN PERSISTS, SEEK MEDICAL ATTENTION Pantoprazole Sodium (Pantoprazole Sodium) 40 Mg Tablet.dr, 40 MG PO WS, ( Reported) Take 1 tablet, by mouth, daily before breakfast. Pitavastatin Calcium (Livalo) 4 Mg Tablet, 1 TAB PO HS, (Reported) Saw [place] Fruit (Saw [place]) 450 Mg Capsule, 1 CAP PO BID, (Reported) Ubidecarenone (Co Q-10) 200 Mg Capsule, 200 MG PO DAILY, (Reported) Vitamin B Complex (Vitamin B Complex) 1 Each Capsule, 1 CAP PO DAILY, (Reported) Currently on Beta Caryn: No Medical/Surgical History Anesthesia PMH: Reports: *Angina (PHANTOM HEART PAIN FROM CABG), *Dyspnea, * Hypertension, Arthritis (OA), Clotting Problems, Hyperlipidemia, Pneumonia, Reflux, Denies: *Diabetes, *IN, Anesthesia Reactions (NO AIRWAY ISSUES), Asthma , CHF, COPD, CVA/Stroke/TIA, Cancer, Glaucoma, Hiatal Hernia, Malignant Hyperthermia, Renal Disease, Seizures, Sleep Apnea, Tuberculosis Smoking Status: Former smoker Has pt. smoked today?: No Use Chewing Tobacco?: No Second Hand Exposure: No Substance Use Type: does not use Past Surgical History Orthopedic Surgeries: Abdominal Surgeries: Yes - LAP ANGEL Genitourinary Surgeries: Cardiac Surgeries: Yes - HEART CATHS WITH STENTS X3,ANGIOPLASTY,TRIPLE CABG 2008 Endocrine Surgeries: Reproductive Surgeries: Yes - CIRCUMCISION,VASECTOMY Neurological Surgeries: Yes - FUSION C3-4 W/ HARDWARE Ear Surgeries: Nose Surgeries: Throat Surgeries: Yes - T&A Other Surgeries: Yes - STERIOD INJECTIONS,MUCOUS CYST ON FINGER,EGD, COLONOSACOPY X2 Anesthesia Adverse Reactions: FOUND none Family Hx of Anesthesia Advers: none Hx of Motion Sickness: No Pertinent Findings EKG Rhythm: Sinus Rhythm Physical Exam Respiratory: Lungs clear Cardiovascular: FOUND Regular rate, rhythm Airway Assessment Mallampati Score: II TMD: 3 Fingerbreadths Overall Assessment: No Airway Concerns ASA: 3 Plan Anesthesia Plan: GETA Discussion Discussed risks/options/alternatives of anesthesia and questions answered. Patient consents. Nursing pain assessment noted. Present: Family Member Attestation Statement Prior to the delivery of any anesthetic medication, I examined the patient, developed the plan, obtained the patient's consent and discussed the risk and benefits of the procedure with the patient/guardian. GENEVIEVE SWEET CRNA Sep 23, 2016 09:38
[2016-09-23] MEDS ORDERED: VANCOMYCIN 1 GRAM INJECTION ONE (10:56)
[2016-09-23] MEDS ORDERED: MIDAZOLAM 2mg/2ml INJECTION ONE (10:58)
[2016-09-23] MEDS ORDERED: PROPOFOL 500mg 100 ML IV ONE (10:59)
[2016-09-23] MEDS ORDERED: EPHEDRINE SULFATE 50mg/ml INJECTION ONE (11:33)
[2016-09-23] MEDS ORDERED: PROPOFOL 200mg 20 ML IV ONE (11:53)
[2016-09-23] MEDS ORDERED: NOZIN NASAL SWAB NS ONE ×2 (12:00→13:00)
[2016-09-23] MEDS ORDERED: PROPOFOL 200mg 40 ML IV ONE (12:02)
--- NOTE | 2016-09-23 12:45 | PDOPERATE ---
Operative Report Date of Operation 09/23/16 Side: Right Preoperative Diagnosis: hip primary DJD Postoperative Diagnosis Same as preoperative diagnosis. Operation/Procedure: total hip arthroplasty (right) Surgeon Krystal Haile MD Garde Manager J[facility] Smith Complications None. Regional Block: Spinal Estimated Blood Loss See Anesthesia Record. Fluids Please See Anesthesia Record. Description of Operation Mr. Steve and his right hip were identified and marked in the the preoperative holding area. He was then brought back to the operating suite and proper anesthesia was administered. He was then positioned lateral on the operating table. The right lower extremity was then prepped and draped in my normal sterile fashion. Timeout was performed with all operating room personnel. A posterior approach was utilized. Approximately 13 cm incision was made in the skin and dissection carried down to the muscle fascia which was then split in line with skin incision. Charnley retractor was placed and the short external rotators were identified and tagged and detached. Capsulotomy was performed and the hip dislocated. A femoral neck osteotomy was performed approximately 1 cm proximal to the lesser trochanter. The head was removed and acetabulum exposed. Labrum was removed and sequentially reamed to a size 55 and placed a 56 cup in 20 of anteversion. A liner was then placed. The proximal femur was exposed and prepared with a cookie cutter followed by reaming and broaching to a size 6. This, with 127 neck, gave him good stability and leg length. This was with the standard head.. After thorough irrigation a final Accolade 2 size 6 with 127 neck stem was placed. Again trialing was good with state 0 head. A final 36 mm standard ceramic head was placed and the hip reduced. Betadine solution was allowed to sit in the wound for 3 minutes and fully irrigated out with normal saline. Joint cocktail was injected throughout soft tissue. The capsulotomy was repaired with Ethibond. Short external rotators were also repaired with Ethibond. 1 g of TXA was placed into the wound allowed to sit for 5 minutes. 1 g of vancomycin powder was placed into the wound. The muscle fascia was then repaired with #1 Vicryl. I then left my system to close the subcutaneous tissue with 2-0 Vicryl followed by running 4-0 Monocryl skin followed by Dermabond and a sterile dressing. The patient with any placed back into supine position and taken to recovery room in the care of anesthesia. JEANNETTE HAILE MD Sep 23, 2016 12:45
[2016-09-23] MEDS ORDERED: LORAZEPAM 1 MG TABLET PO PRN (13:00)
[2016-09-23] MEDS ORDERED: SENNOSIDES 8.6 MG TABLET PO PRN (13:00)
[2016-09-23] MEDS ORDERED: NAPROXEN 220 MG TABLET PO PRN (13:00)
[2016-09-23] MEDS ORDERED: PRN ORDERS MC (13:00)
[2016-09-23] MEDS ORDERED: DiphenhydrAMINE 25 MG CAPSULE PO PRN (13:00)
[2016-09-23] MEDS ORDERED: FLUTICASONE NASAL SPRAY 50 MCG EA NOSTRIL PRN (13:00)
[2016-09-23] MEDS ORDERED: DiphenhydrAMINE 50 MG/ML INJECTION IV PRN (13:00)
[2016-09-23] MEDS ORDERED: ONDANSETRON 4mg/2ml INJECTION IV PRN (13:00)
[2016-09-23] MEDS ORDERED: METOCLOPRAMIDE 10mg/2ml INJECTION IV PRN (13:00)
[2016-09-23] MEDS ORDERED: NITROGLYCERIN 0.4 MG SUBLINGUAL TABLET SL PRN (13:00)
--- NOTE | 2016-09-23 13:21 | ANESPO ---
Post-Op Note Date 09/23/16 Time: 13:20 Status Pt Participated in Evaluation: Pt participated in person Vital Signs Date Time Temp Pulse Resp B/P Pulse Ox O2 Delivery O2 Flow Rate FiO2 09/23/16 13:15 64 16 109/59 100 Room Air 09/23/16 12:59 97.6 Respiratory Function: Airway patent, Regular respirations Telemetry Pattern: SR Mental Status: Alert/oriented Pain Level Intensity: 0 Unable to Assess Pain Due To: INTRA OP Hydration: IV infusing Complications during Recovery None apparent Follow-Up Instructions Instructions Per Surgeon JOANIE GONZALEZ CRNA Sep 23, 2016 13:21
[2016-09-23] MEDS ORDERED: CEFAZOLIN 1 GRAM INJECTION IV ONE (13:30)
[2016-09-23] MEDS ORDERED: TRANEXAMIC ACID 1000 MG/10 ML TOP ONE (13:30)
--- NOTE | 2016-09-23 13:45 | NUR ---
ARRIVAL TO FLOOR PT ARRIVED TO THE FLOOR ACCOMPANIED BY CRICKET COACH. PT ABLE TO TRANSFER SELF FROM THE CART TO THE BED WITH MINIMAL ASSIST. POST OP VITAL SIGNS STARTED, WILL CONTINUE TO MONITOR.
[2016-09-23] MEDS ORDERED: EPINEPHRINE 0.25 MG, BUPIVACAINE 0.25% 75 MG, MORPHINE SULFATE 15 MG, KETOROLAC 60 MG i... INJ ONE ×5 (14:00)
--- NOTE | 2016-09-23 14:15 | DI ---
Indication: ITS.REASON: POSTOP right hip replacement PROCEDURE: PELVIS W/1 VIEW RT HIP: Encounter: Initial Comparison: None Findings: Postoperative changes of right total hip replacement are seen. There is expected postoperative subcutaneous gas. No evidence of hardware failure or acute fracture. No retained radiopaque surgical instruments or sponges seen. Impression: New right total hip prosthesis without evidence of immediate complication. .
[2016-09-23] MEDS: ACETAMINOPHEN 325 MG TABLET PO SCH ×3 (14:34→21:53)
[2016-09-23] MEDS: NORMAL SALINE 1,000 ML IV SCH (14:35)
[2016-09-23] MEDS: OXYCODONE I.R. 5 MG TABLET PO PRN ×2 (15:59→18:57)
[2016-09-23] MEDS ORDERED: LOSARTAN 50 MG TABLET PO SCH (17:30)
[2016-09-23] MEDS ORDERED: CLOPIDOGREL 75 MG TABLET PO SCH (17:30)
[2016-09-23] MEDS: NOZIN NASAL SWAB NS SCH ×2 (18:56→21:56)
--- NOTE | 2016-09-23 20:20 | NUR ---
PROGRESS NOTE PT ALERT AND ORIENTED X3, VITAL SIGNS STABLE, ON RA. PT IS UP X1, GAIT BELT AND WALKER. THE PT HAS WORKED WITH PHYSICAL THERAPY. WALKED THE HALLS ONCE WITH PHYSICAL THERAPY AND ONCE WITH THIS RN. THE PT HAS HAD ADEQUATE URINE OUTPUT THIS SHIFT SINCE ARRIVAL TO THE FLOOR AND NO BOWEL MOVEMENT. THE PT HAS BEEN GIVEN TWO PRN DOSES OF ROXICODONE 10MG FOR PAIN MANAGEMENT AND IS RATING PAIN A 2/10 AT SHIFT CHANGE. PT IS RESTING IN BED, CALL LIGHT WITHIN REACH, ICE PACK IN PLACE. NO OTHER CONCERNS NOTED. REPORT OFF TO BIT SHARPENER OPERATOR RN.
--- NOTE | 2016-09-23 21:00 | NUR ---
Clarification recieved from [facility] PA from Day shift Nurse that statin medication is on hold while in the Hospital due to cierra listed as an Allergy.
[2016-09-23] MEDS: CEFAZOLIN 2 G in NORMAL SALINE 100 ML IV SCH (21:57)
[2016-09-23] MEDS ORDERED: SENNOSIDES 8.6 MG TABLET PO SCH (22:00)
[2016-09-23] MEDS ORDERED: GABAPENTIN 300 MG CAPSULE PO SCH (22:00)
[2016-09-23] MEDS ORDERED: PITAVASTATIN CALCIUM PO SCH (22:00)
[2016-09-24 00:12] VITALS: BP 116/67; PULSE 64; RESP 14; TEMP 98.7; O2SAT 95
[2016-09-24] MEDS: NORMAL SALINE 1,000 ML IV SCH ×2 (01:29→02:51)
[2016-09-24] MEDS: CEFAZOLIN 2 G in NORMAL SALINE 100 ML IV SCH (02:38)
[2016-09-24 04:00] VITALS: BP 122/69; PULSE 53; RESP 14; TEMP 98.3; O2SAT 98
[2016-09-24 05:24] LABS: HCT - HEMATOCRIT 36.3 % (41-53); HGB - HEMOGLOBIN 11.9 GM/DL (13.5-17.5); MEAN CORPUSCULAR HGB 31.2 UUG (26-34); MEAN CORPUSCULAR HGB CONC(MCHC 32.8 GM/DL (31-37); MEAN PLATELET VOLUME 9.9 UM3 (9.4-12.4); RED BLOOD COUNT 3.82 M/MM3 (4.50-5.90); WBC - WHITE BLOOD COUNT 12.7 T/MM3 (4.5-11.0)
[2016-09-24 05:27] LABS: ANION GAP 10 MEQ/L (5-15); BUN/CREATININE RATIO 19 RATIO (6-26); CALCIUM 9.1 MG/DL (8.4-10.2); CHLORIDE 105 MEQ/L (98-107); CO2 - CARBON DIOXIDE 25 MEQ/L (22-30); CREATININE 0.8 MG/DL (0.8-1.5); GLOMERULAR FILTRATION RATE 98; GLUCOSE 124 MG/DL (75-110); POTASSIUM 4.7 MEQ/L (3.6-5); SODIUM 140 MEQ/L (134-144)
--- NOTE | 2016-09-24 06:20 | NUR ---
END OF SHIFT SUMMARY: Ambulated in hallway with use of walker, gait belt and one assist last evening. Ambulated to bathroom several times during this shift with use of walker, gait belt and one assist. Denies shortness of breath with exertion/ambulation. Continuous oximetry during the night. Monitoring Unit did not call about concerns or significant changes in oximetry or telemetry during the night. Has not required PRN analgesic. Maintaining pain control with scheduled Neurontin at HS, scheduled TYLENOL and ICE PACK during the night. Dressing to right hip dry and intact. Urine output good. Tolerates food and fluid well. V/S stable.
[2016-09-24] MEDS ORDERED: PANTOPRAZOLE 40 MG TABLET PO SCH (06:30)
[2016-09-24] MEDS: NOZIN NASAL SWAB NS SCH ×2 (07:31→13:26)
[2016-09-24 07:38] VITALS: BP 133/67; PULSE 55; RESP 16; TEMP 97.6; O2SAT 97
[2016-09-24 08:00] VITALS: PULSE 66; RESP 16
--- NOTE | 2016-09-24 08:05 | PDORTHOPN ---
Subjective Date DATE: 09/24/16 TIME: 08:00 Subjective Mr Steve is doing very well this AM. Pain is controlled. He has been mobile with good tolerance. Denies CP or SOA. He is hopeful to go home today. Objective Vital Signs Vital signs Vital Signs 09/23/16 09/24/16 09/24/16 20:31 00:12 04:00 Temp 98.7 98.3 Pulse 63 64 53 Resp 16 14 14 B/P 131/69 116/67 122/69 Pulse Ox 96 95 98 O2 Delivery Room Air Room Air Room Air Height (Feet): 6 Height (Inches): 1.00 Weight (Kilograms): 89.100 General General Appearance: Alert, Well Developed, No Acute Distress Respiratory (Brief) Respiratory Brief: FOUND: non-labored Cardiovascular (Brief) Cardiac: FOUND: calf easily compressible, calf soft, nontender, pedal pulses intact Surgical Site Incision: FOUND: Mepilex dressing intact, no drainage Neurologic (Brief) Neurological Brief: FOUND: extremities w/o deficits, neuro intact Psychiatric (Brief) Psychiatric Brief: FOUND: alert, no acute distress Laboratory Laboratory Laboratory Tests 09/24/16 04:18 Laboratory Tests 09/24/16 04:18 Assessment & Plan Problems: (1) Degenerative arthritis of hip Status: Chronic Qualifiers: Osteoarthritis type: primary Laterality: right Qualified Codes: M16.11 - Unilateral primary osteoarthritis, right hip Assessment & Plan: Resume his pre op anti-coagulation protocol for cardiac coverage as well as VTE prophylaxis. SCD's and early mobilization for added DVT protection. PT/OT services to improve independent function. Discharge Planning per Case Management. (2) Coronary artery disease Hospital Course Summary Disclaimer The visit summary below is not to be considered part of the above Progress Note. SHANNON MANSFIELD Sep 24, 2016 08:04
[2016-09-24] MEDS: ACETAMINOPHEN 325 MG TABLET PO SCH ×2 (08:34→13:26)
[2016-09-24] MEDS: OXYCODONE I.R. 5 MG TABLET PO PRN ×2 (08:34→15:02)
[2016-09-24] MEDS ORDERED: COENZYME Q10 200 MG TABLET PO SCH (09:00)
[2016-09-24] MEDS ORDERED: DOCUSATE SODIUM 100 MG CAPSULE PO SCH (09:00)
[2016-09-24] MEDS ORDERED: POLYETHYL.GLYCOL 3350 PACKET 17gm PO SCH (09:00)
[2016-09-24] MEDS ORDERED: AMLODIPINE 2.5 MG TABLET PO SCH (09:00)
--- NOTE | 2016-09-24 10:48 | NUR ---
CM CM IN TO VISIT WITH PT. HE IS ALERT AND ORIENTED. HE PLANS TO RETURN HOME. HE WILL DO OUTPT PT AT [facility]. HE HAS FWW. HE IS GIVEN CM CONTACT INFORMATION. MARIBELE SCORE IS 7. Addendum: 09/24/16 at 1052 by DOMINGO ROD RN Amended: Links added.
[2016-09-24 12:00] VITALS: BP 126/66; PULSE 77; RESP 16; TEMP 99.2; O2SAT 97
[2016-09-24] MEDS ORDERED: POLY17PO6 PO (12:33)
[2016-09-24] MEDS ORDERED: ACET-2321 PO (12:33)
[2016-09-24] MEDS ORDERED: OXYC5TAB84 PO (12:33)
[2016-09-24] MEDS ORDERED: MAGN400O4 PO (12:33)
--- NOTE | 2016-09-24 12:39 | DSPDOC ---
General Date Date DATE: 09/24/16 TIME: 12:35 Attending Physician Dennys Haile MD Admitting Physician Dennys Haile MD Consulting Physician Admitting Diagnosis PRIMARY DEGENERATIVE JOINT DISEASE RIGHT HIP Discharge Diagnosis Primary DJD right hip Procedures Right total hip arthroplasty History of Present Illness HPI Elements This patient was admitted for elective surgical tx of end stage degenerative joint disease that failed to respond to conservative treatment. Further details of this is found in the admission H&P. Hospital Course After appropriate preoperative clearance and signing of operative consent, the patient was given IV antibiotics, according to orthopedic protocol. The patient was taken to the operating room and underwent elective right total hip arthroplasty. Following surgery, antibiotics were discontinued less than 24 hours according to joint protocol. His Plavix was initiated and SCDs added for DVT prevention. He has GI distress with the use of aspirin products. The dressing was clean, dry, and intact. Pain control was obtained via multimodal approach. Bowel motivation addressed with scheduled and PRN medications. Early mobilization was initiated through PT services. Discharge arrangements made by a collaborative effort between the patient and Case Management. Follow-up is scheduled in 2-3 weeks. Discharge instructions given by orthopedic providers and nursing staff at discharge. Discharge condition was good. Problems: (1) Degenerative arthritis of hip Status: Chronic Assessment & Plan: Resume his pre op anti-coagulation protocol for cardiac coverage as well as VTE prophylaxis. SCD's and early mobilization for added DVT protection. PT/OT services to improve independent function. Discharge Planning per Case Management. (2) Coronary artery disease Ongoing Care Required?: No Laboratory Laboratory Tests Test 09/24/16 04:18 White Blood Count 12.7T/MM3 Red Blood Count 3.82M/MM3 Hemoglobin 11.9GM/DL Hematocrit 36.3% Mean Corpuscular Volume 95.0UM3 Mean Corpuscular Hemoglobin 31.2UUG Mean Corpuscular Hemoglobin Concent 32.8GM/DL RDW Standard Deviation 43.5FL Platelet Count 221T/MM3 Mean Platelet Volume 9.9UM3 Turbidity < 20 Sodium Level 140MEQ/L Potassium Level 4.7MEQ/L Chloride Level 105MEQ/L Carbon Dioxide Level 25MEQ/L Anion Gap 10MEQ/L Blood Urea Nitrogen 15.0MG/DL Creatinine 0.8MG/DL Glomerular Filtration Rate Calc 98 BUN/Creatinine Ratio 19RATIO Glucose Level 124MG/DL Calculated Osmolality 271MOSM/KG Calcium Level 9.1MG/DL Icterus Index < 2 Chemistry Specimen Hemolysis < 15 Home Meds Active Scripts Polyethylene Glycol 3350 (Miralax) 17 Gm Powd.pack, 17 G PO DAILY Y for CONSTIPATION, #1 BOTTLE Take 17 Grams (1 capful), by mouth, once a day. Prov:SHANNON MANSFIELD 09/24/16 Magnesium Hydroxide (Milk of Magnesia) 400 Mg/5 Ml Oral.susp, 30 ML PO 0800 for 30 Days Prov:SHANNON MANSFIELD 09/24/16 Oxycodone HCl (Oxycodone HCl) 5 Mg Tablet, 5-15 MG PO Q3H Y for BREAKTHROUGH PAIN, #60 TAB Prov:SHANNON MANSFIELD 09/24/16 Acetaminophen (Tylenol) 325 Mg Tablet, 650 MG PO QID, #60 TAB Prov:SHANNON MANSFIELD 09/24/16 Reported Medications Pantoprazole Sodium (Pantoprazole Sodium) 40 Mg Tablet.dr, 40 MG PO DAILY 08/13/16 Fluticasone Propionate (Flonase Allergy Relief 50 mcg/actuation Nasal) 9.9 Ml [place].susp, 2 SPRAY EA NOSTRIL DAILY Y for ALLERY SYMPTOMS 08/13/16 Glucosamine/MSM/Chondroitin A (Glucosamine Chondroit MSM Tab) 1 Each Tablet, 1 TAB PO BID 08/13/16 Cholecalciferol (Vitamin D3) (Vitamin D3) 1,000 Unit Capsule, 1 CAP PO DAILY 11/17/14 Vitamin B Complex (Vitamin B Complex) 1 Each Capsule, 1 CAP PO DAILY 11/17/14 [place] Fruit (Saw [place]) 450 Mg Capsule, 1 CAP PO BID 11/17/14 Nitroglycerin (Nitrostat) 0.4 Mg Tablet, 0.4 MG SL Q5MIN Y for CHEST PAIN, TAB NOT TO EXCEED 3 DOSES/15 MIN. IF PAIN PERSISTS, SEEK MEDICAL ATTENTION 11/17/14 Multivitamin (Multi-Vitamin Daily) 1 Each Tablet, 1 TAB PO DAILY 11/17/14 Pitavastatin Calcium (Livalo) 4 Mg Tablet, 1 TAB PO HS 11/17/14 Losartan Potassium (Losartan Potassium) 50 Mg Tablet, 1 TAB PO WS 11/17/14 Gabapentin (Gabapentin) 300 Mg Capsule, 1 CAP PO HS 11/17/14 Ubidecarenone (Co Q-10) 200 Mg Capsule, 200 MG PO DAILY, CAP 11/17/14 Clopidogrel Bisulfate (Clopidogrel) 75 Mg Tablet, 1 TAB PO WS 11/17/14 Amlodipine Besylate (Amlodipine Besylate) 2.5 Mg Tablet, 1 TAB PO DAILY 11/17/14 Discharge Disposition HOME Estimated Blood Loss 75.0 SHANNON MANSFIELD Sep 24, 2016 12:39
[2016-09-25] MEDS ORDERED: MILK OF MAGNESIA 30 ML SUSP PO SCH (08:00)
[2016-09-25] MEDS ORDERED: BISACODYL 10 MG SUPPOSITORY RECTALLY SCH (20:00)
== END 2016-09-24 16:00 | disposition home or self-care (01) | DRG 470 ==
LOC: SRG 09-23 09:19
PROVIDERS: ADMIT Orthopaedic Surgery; ATTEND Orthopaedic Surgery
PROC: 0SR904A Replacement of Right Hip Joint with Ceramic on Polyethylene Synthetic Substitute, Uncemented, Open Approach (ICD-10-PCS; principal; 2016-09-23 11:33)
DX: M16.11 Unilateral primary osteoarthritis, right hip (principal); I25.119 Atherosclerotic heart disease of native coronary artery with unspecified angina pectoris; Z95.1 Presence of aortocoronary bypass graft; Z95.5 Presence of coronary angioplasty implant and graft; K21.0 Gastro-esophageal reflux disease with esophagitis; I10 Essential (primary) hypertension; E78.00 Pure hypercholesterolemia, unspecified; F41.9 Anxiety disorder, unspecified; F32.9 Major depressive disorder, single episode, unspecified
CPT/HCPCS: 36415; 80048; 85027